=== PATIENT | female | born 1950 | race Caucasian/White ===

== ENCOUNTER → 2017-09-02 | Outpatient (CLI) | payer BC ==
--- NOTE | 2017-09-03 11:08 | MM ---
Reason for exam: screening (asymptomatic). Last mammogram was performed 1 year and 1 month ago. History: Patient is postmenopausal. Took hormonal contraceptives for 5 years. Physical Findings: A clinical breast exam by your physician is recommended on an annual basis and results should be correlated with mammographic findings. MG Screening Mammo w CAD Bilateral CC and MLO view(s) were taken. Prior study comparison: August 12, 2016, bilateral MG screening mammo w CAD. August 16, 2015, bilateral MG screening mammo w CAD. There are scattered fibroglandular densities. There is no discrete abnormality. No significant changes when compared with prior studies. ASSESSMENT: Negative, BI-RAD 1 RECOMMENDATION: Routine screening mammogram of both breasts in 1 year.
== END | disposition home or self-care (01) ==
LOC: RADMAMWWP 14:57
PROVIDERS: ATTEND Family Medicine
DX: Z12.31 Encounter for screening mammogram for malignant neoplasm of breast (principal)
CPT/HCPCS: 77067

== ENCOUNTER → 2017-11-24 | Outpatient (CLI) | payer BC | END | disposition home or self-care (01) | LOC: RADECHMAIN 11:54 | PROVIDERS: ATTEND Family Medicine | DX: R55 Syncope and collapse (principal) | CPT/HCPCS: 93270; 93271 ==

== ENCOUNTER → 2018-09-30 | Outpatient (CLI) | payer BC ==
--- NOTE | 2018-10-05 14:04 | MM ---
Reason for exam: screening (asymptomatic). Last mammogram was performed 1 year and 1 month ago. History: Patient is postmenopausal. Took hormonal contraceptives for 5 years. Physical Findings: A clinical breast exam by your physician is recommended on an annual basis and results should be correlated with mammographic findings. MG Screening Mammo w CAD Bilateral CC and MLO view(s) were taken. Prior study comparison: September 02, 2017, bilateral MG screening mammo w CAD. August 12, 2016, bilateral MG screening mammo w CAD. There are scattered fibroglandular densities. Benign vascular calcifications. No significant changes when compared with prior studies. ASSESSMENT: Negative, BI-RAD 1 RECOMMENDATION: Routine screening mammogram of both breasts in 1 year.
== END | disposition home or self-care (01) ==
LOC: RADMAMWWP 15:22
PROVIDERS: ATTEND Family Medicine
DX: Z12.31 Encounter for screening mammogram for malignant neoplasm of breast (principal)
CPT/HCPCS: 77067

== ENCOUNTER → 2019-10-04 | Outpatient (CLI) | payer BC ==
--- NOTE | 2019-10-05 09:15 | MM ---
Reason for exam: screening (asymptomatic). Last mammogram was performed 1 year ago. History: Patient is postmenopausal. Took hormonal contraceptives for 5 years. Physical Findings: A clinical breast exam by your physician is recommended on an annual basis and results should be correlated with mammographic findings. MG Screening Mammo w CAD Bilateral CC and MLO view(s) were taken. Prior study comparison: September 30, 2018, bilateral MG screening mammo w CAD. September 02, 2017, bilateral MG screening mammo w CAD. There are scattered fibroglandular densities. There is no discrete abnormality. No significant changes when compared with prior studies. ASSESSMENT: Negative, BI-RAD 1 RECOMMENDATION: Routine screening mammogram of both breasts in 1 year.
== END | disposition home or self-care (01) ==
LOC: RADMAMWWP 14:48
PROVIDERS: ATTEND Family Medicine
DX: Z12.31 Encounter for screening mammogram for malignant neoplasm of breast (principal)
CPT/HCPCS: 77067

== ENCOUNTER → 2020-10-05 | Outpatient (CLI) | payer BC, MEDICARE ==
--- NOTE | 2020-10-09 08:45 | MM ---
Reason for exam: screening (asymptomatic). Last mammogram was performed 1 year ago. History: Patient is postmenopausal. Took hormonal contraceptives for 5 years. Physical Findings: A clinical breast exam by your physician is recommended on an annual basis and results should be correlated with mammographic findings. MG Screening Mammo w CAD Bilateral CC and MLO view(s) were taken. Prior study comparison: October 04, 2019, bilateral MG screening mammo w CAD. September 30, 2018, bilateral MG screening mammo w CAD. There are scattered fibroglandular densities. No significant changes when compared with prior studies. ASSESSMENT: Benign, BI-RAD 2 RECOMMENDATION: Routine screening mammogram of both breasts in 1 year.
== END | disposition home or self-care (01) ==
LOC: RADMAMWWP 15:09
PROVIDERS: ATTEND Family Medicine
DX: Z12.31 Encounter for screening mammogram for malignant neoplasm of breast (principal); Z78.0 Asymptomatic menopausal state
CPT/HCPCS: 77067

== ENCOUNTER → 2021-07-24 | Outpatient (CLI) | payer BC | END | disposition home or self-care (01) | LOC: LABWHC1 14:54 | PROVIDERS: ATTEND Otolaryngology | DX: J30.89 Other allergic rhinitis (principal) | CPT/HCPCS: 36415; 86001 ==

== ENCOUNTER → 2021-11-01 | Outpatient (CLI) | payer BC ==
--- NOTE | 2021-11-02 14:55 | MM ---
Reason for Exam: Screening (asymptomatic). Last mammogram was performed 1 year(s) and 1 month(s) ago. Patient History: Menarche at age 11. First Full-Term at age 17. Postmenopausal. Patient used Hormonal Contraceptives for 5 years. Risk Values: Cynthia 5 year model risk: 1.3%. NCI Lifetime model risk: 3.3%. Prior Study Comparison: 09/30/2018 Bilateral Screening Mammogram, [facility]. 10/04/2019 Bilateral Screening Mammogram, [facility]. 10/05/2020 Bilateral Screening Mammogram, [facility]. Tissue Density: There are scattered fibroglandular densities. Findings: Analyzed By CAD. There is no suspicious group of microcalcifications or new suspicious mass in either breast. No significant change from prior examination. Overall Assessment: Negative, BI-RAD 1 Management: Screening Mammogram of both breasts in 1 year. A clinical breast exam by your physician is recommended on an annual basis and results should be correlated with mammographic findings. Electronically signed and approved by: Wesley Valenzuela D.O.
== END | disposition home or self-care (01) ==
LOC: RADMAMWWP 15:13
PROVIDERS: ATTEND Family Medicine
DX: Z12.31 Encounter for screening mammogram for malignant neoplasm of breast (principal); Z78.0 Asymptomatic menopausal state
CPT/HCPCS: 77067

== ENCOUNTER → 2022-01-29 | Outpatient (CLI) | payer BC ==
--- NOTE | 2022-01-29 10:48 | CT ---
CT left knee [facility] protocol HISTORY: Osteoarthritis, pain Helical acquisition through the left lower extremity for surgical planning purposes urine automated e xposure control for dose reduction, DLP 590 mGycentimeters. Sagittal and coronal reconstructions. No comparisons Left hip joint shows some mild hypertrophic change of the acetabulum. Marked osteoarthritic changes p resent within the knee, tricompartmental marginal spurring, loss of joint space, there is likely ther e is deformity, loose body. Ankle joint is intact. There is a plantar calcaneal spur present. Some sp urring present at the tibiotalar joint. Diverticular change noted incidentally within the colon. IMPRESSION: CT for procedure planning purposes.
== END | disposition home or self-care (01) ==
LOC: RADCTMAIN 09:01
PROVIDERS: ATTEND Orthopaedic Surgery
DX: M17.12 Unilateral primary osteoarthritis, left knee (principal); M21.162 Varus deformity, not elsewhere classified, left knee

== ENCOUNTER → 2022-02-18 | Outpatient (CLI) | payer BC ==
[2022-02-18 16:15] LABS: INR 1.2 (<1.2); Prothrombin Time 12.3 sec (9.0-12.0)
[2022-02-18 23:50] LABS: HCT 40.5 % (37.2-46.3); HGB 12.6 g/dL (12.0-15.0); MCH 30.4 pg (27.0-32.0); MCHC 31.1 g/dL (32.0-37.0); MCV 97.6 fL (80.0-97.0); Mean Platelet Volume 10.5 fL (9.5-12.2); NRBC Per 100 WBC 0 /100 WBCS (0.0-0.0); Platelet Count 169 X 10*3/uL (140-440); RBC 4.15 X 10*6/uL (4.10-5.20); RDW 12.9 % (11.5-14.5); WBC 7.97 X 10*3/uL (4.50-10.00)
[2022-02-19 00:25] LABS: African American GFR (CKD) 72.7 (60.0-200.0); Albumin 4.1 g/dL (3.8-4.9); Albumin/Globulin Ratio 1.2 (1.60-3.17); BUN/Creat Ratio 26.7 Ratio (12.00-20.00); Blood Urea Nitrogen 24.4 mg/dL (9.0-27.0); Calcium 9.5 mg/dL (8.7-10.3); Carbon Dioxide 25.2 mmol/L (20.0-27.5); Globulin 3.4 g/dL (1.6-3.3); Non-African American GFR(CKD) 62.7 (60.0-200.0); Potassium 4.3 mmol/L (3.5-5.5); Total Bilirubin 0.4 mg/dL (0.30-1.20); Total Protein 7.4 g/dL (6.2-8.2)
[2022-02-19 02:25] LABS: Appearance,Urine Clear (Clear); Bilirubin,Urine Negative (Negative); Blood,Urine Negative (Negative); Color,Urine Yellow (Yellow); Ketones,Urine Negative (Negative); Nitrite,Urine Negative (Negative); PH, Urine 5.5 (5.0-8.0); Specific Gravity,Urine 1.018 (1.001-1.030); Urobilinogen,Urine 0.2 (0.2,1.0)
== END | disposition home or self-care (01) ==
LOC: LABPAT 15:11
PROVIDERS: ATTEND Orthopaedic Surgery
DX: Z01.812 Encounter for preprocedural laboratory examination (principal)
CPT/HCPCS: 36415; 80053; 81003; 85027; 85610; 85730; 87070

== ENCOUNTER 2022-03-15 14:04 | Day surgery (SDC) | payer BC ==
[~2022-03-15 14:04] MED LIST: ACETAMINOPHEN TAB 500 MG TAB PO PRN; DEXAMETHASONE SOD PHOSPHATE 10 MG/ML 1 ML VIAL IV PRN; DOCUSATE 100 MG CAP PO PRN; FAMOTIDINE 20 MG/2 ML VIAL IVP PRN; HYDROmorphone 0.5 MG/0.5 ML SYRINGE IVP PRN; KETOROLAC 15 MG/ML 1 ML VIAL IVP PRN; MIDAZOLAM 2 MG/2 ML VIAL IV PRN; ONDANSETRON 4 MG/2 ML VIAL IVP PRN; ROPIVACAINE/EPI/CLONIDINE/KET 50 ML SYRINGE MISCELLANE PRN; TRANEXAMIC ACID IN NACL,ISO-OS 1,000 MG in SALINE 1 100ML.BAG IVPB PRN; oxyCODONE ER 10 MG TAB.ER.12H PO PRN
[2022-03-15] MEDS: LACTATED RINGERS 1,000 ML IV SCH ×2 (14:20→21:52)
[2022-03-15] MEDS ORDERED: MIDAZOLAM 2 MG/2 ML VIAL IVP ONE (14:49)
--- NOTE | 2022-03-15 15:46 | P.ANPRN ---
Procedure Note - Anesthesia - Nerve Block Performed Left Adductor Canal Single Time Out Performed: Yes Date of Procedure: 03/15/22 Procedure Start Time: 14:48 Procedure Stop Time: 14:56 Location of Patient: PreOp Indication: Acute Post-Operative Pain, Requested by Surgeon Sedation Type: Sedate with meaningful contact maintained Preparation: Sterile Prep, Sterile Dressing Position: Supine Catheter: None Needle Types: Facet Needle Gauge: 20 Ultrasound used to visualize needle placement: Yes Ultrasound used to observe medication spread: Yes Injectate: 0.5% Ropivacaine (see comment for volume) (15 ml + 2 mg decadron) Blood Aspirated: No Pain Paresthesia on Injection Noted: No Resistance on Injection: Normal Image Stored and Saved: Yes Events: Uneventful and Well Tolerated Left iPack Single Time Out Performed: Yes Date of Procedure: 03/15/22 Procedure Start Time: 14:57 Procedure Stop Time: 15:04 Location of Patient: PreOp Indication: Acute Post-Operative Pain, Requested by Surgeon Sedation Type: Sedate with meaningful contact maintained Preparation: Sterile Prep, Sterile Dressing Position: Right Lateral Catheter: None Needle Types: Facet Needle Gauge: 20 Ultrasound used to visualize needle placement: Yes Ultrasound used to observe medication spread: Yes Injectate: 0.5% Ropivacaine (see comment for volume) (15 ml + decadron 2 mg) Blood Aspirated: No Pain Paresthesia on Injection Noted: No Resistance on Injection: Normal Image Stored and Saved: Yes Events: Uneventful and Well Tolerated
[2022-03-15] MEDS ORDERED: PROPOFOL 10 MG/ML 20 ML VIAL IV ONE (16:30)
[2022-03-15] MEDS ORDERED: MIDAZOLAM 2 MG/2 ML VIAL ONE (16:30)
[2022-03-15] MEDS ORDERED: DEXAMETHASONE SOD PHOSPHATE 4 MG/ML 1 ML VIAL ONE (16:30)
[2022-03-15] MEDS ORDERED: ROPIVACAINE 5 MG/ML 30 ML VIAL ONE (16:30)
[2022-03-15] MEDS ORDERED: LIDOCAINE 2% INJ 20 MG/ML (2 ML VIAL) ONE (16:30)
[2022-03-15] MEDS ORDERED: NEOSTIGMINE 1 MG/ML 10 ML VIAL ONE (16:30)
[2022-03-15] MEDS ORDERED: GLYCOPYRROLATE 0.2 MG/ML 2 ML VIAL ONE (16:30)
[2022-03-15] MEDS ORDERED: fentaNYL (PF) 50 MCG/ML 2 ML AMP ONE (16:30)
[2022-03-15] MEDS ORDERED: ROCURONIUM 10 MG/ML (5 ML VIAL) IV ONE (16:30)
[2022-03-15] MEDS ORDERED: SUCCINYLCHOLINE CHLORIDE 200 MG/10 ML VIAL IV ONE (16:30)
[2022-03-15] MEDS ORDERED: LACTATED RINGERS 1,000 ML IV ONE (18:35)
[2022-03-15] MEDS ORDERED: VANCOMYCIN 1,000 MG VIAL MISCELLANE ONE (18:38)
[2022-03-15] MEDS ORDERED: NALOXONE 0.4 MG/ML 1 ML VIAL IV PRN (19:18)
[2022-03-15] MEDS ORDERED: hydrOXYzine pamoate 25 MG CAP PO PRN (19:20)
[2022-03-15] MEDS ORDERED: HYDROmorphone 0.5 MG/0.5 ML SYRINGE IVP PRN ×3 (19:20)
--- NOTE | 2022-03-15 19:23 | P.OP ---
Date of Procedure: 03/15/22 Preoperative Diagnosis: 1. Severe left knee osteoarthritis 2. BMI 37 3. Atrial fibrillation on Xarelto Postoperative Diagnosis: Same Procedure(s) Performed: Left total knee replacement Implants: 1. [employer] CR Femur Size #5 2. [place] [employer] [place] Tibial Base Size #4 with [id number] stem 3. [employer] CS poly Size #4, 10-mm 4. [place] [employer] all poly patella, Size #29 Anesthesia: CHARLY, regional Surgeon: Wing Dutton Electrician Station Assistant #1: Shea Payan Estimated Blood Loss (ml): 50 IV fluids (ml): 1,200 Pathology: none sent (Gross and/or histopathologic evaluation by pathology is not indicated based on my interpretation of preoperative imaging and intraoperative findings.) Condition: stable Disposition: PACU Indications for Procedure: I met with the patient preoperatively in the office setting and discussed treatment of their symptomatic knee arthritis. They failed a long course of nonsurgical treatment and elected to proceed with an elective total knee replacement. I discussed the potential risks and complications at length and gave them ample time to ask questions. Risks discussed included: risks from anesthesia, superficial site surgical infection, acute and/or chronic periprosthetic joint infection, delayed wound healing, drainage, wound necrosis, instability, stiffness, stiffness requiring manipulation and/or revision surgery, damage to local blood vessels or nerves, aseptic loosening of the implants, extensor mechanism issues including disruption, patellar maltracking, avascular necrosis etc., continued or worsened knee pain, generalized dissat isfaction with surgical outcome, need for revision surgery, an inability to regain preinjury level of function, DVT, PE, other medical complications, and possibly loss of life or limb. The patient voiced their understanding that while these are the most common complications other less common complications are possible. They provided both their verbal and written consent to go forward with surgery. Operative Findings: Severe tricompartmental osteoarthritis Description of Procedure: The patient was identified in preoperative holding and the correct operative extremity was verified and marked with a marker. I reviewed the consent form with the patient at length. All of their questions were answered. The patient was given a block by anesthesia. They were then brought back to the operating room. They were transferred onto the operating room table where a general anesthetic, preoperative antibiotics, and tranexamic acid were administered by anesthesia. A tourniquet was applied to the proximal aspect of the operative extremity. The contralateral extremity was padded under the heel and secured to the operating room table with a nonsterile blue towel and tape. The ipsilateral arm was carefully draped across the patient's chest and secured with a pillow and foam. A post was applied over the lateral aspect of the ipsilateral thigh and a bolster was placed under the ipsilateral foot. I verified that the operative extremity was stable and the knee was flexed to 90. The operative extremity was then placed in a leg lemus, nonsterile drapes were applied, and the extremity was prepped and draped sterilely in the standard sterile fashion. Prior to starting surgery timeout was performed identifying the correct patient, operative extremity, and procedure. The leg was then elevated, exsanguinated with an Esmarch bandage, and the tourniquet was inflated. An anterior midline incision was made sharply with a scalpel. Once I had dissected deep to the superficial fascial layer medial and lateral flaps were elevated. A medial parapatellar arthrotomy was created. Upon opening the knee joint there were diffuse arthritic changes in all 3 compartments. The anterior horn of the medial meniscus were sharply released and a medial release was performed around the posterior medial corner of the knee to facilitate retractor placement. The fat pad was excised with electrocautery. The patella was found to be severely arthritic and a provisional cut was made with a sagittal saw to facilitate mobilization of the extensor mechanism during the procedure. Remnants of the ACL and PCL were then excised from the notch. 4 mm pins were then placed within the incision in the medial distal femur and proximal tibia. Arrays were applied to the pins and I verified they were completely tightened. The knee was then registered with the Flexis robot and manipulations in implant position were made to balance the knee and opitmize implant position. Using the Flexis robotic saw all cuts were made in accordance with our plan. After all bony fragments had been removed the cuts were verified with the planar probe. The tibia was then subluxed forward and sized. The knee was brought into flexion and a lamina director software quality assurance was placed to allow removal of the meniscal remnants both medially and laterally as well as posterior osteophytes. Local anesthetic was then infiltrated around the joint capsule. Trial implants were then placed within the knee. Range of motion and collateral ligament tension was then evaluated. Adjustments in implant size and position were then made accordingly. Once the knee was felt to be appropriately balanced the Brodie pins were removed. The patella was then recut, sized, and punched. A trial patellar button was then placed. With the trial components in place, the patella tracked midline. The femur was then drilled and the trial component removed. The trial tibial component was then appropriately rotated, pinned, and prepared for the keel. All trial components were then removed from the knee. The knee was thoroughly irrigated with pulsatile lavage. Cement was prepared via vacuum mixing in a bowl on the back table. I then hand pressurized cement into the femur and tibia and placed the implants beginning with the tibial base tray and poly liner, femoral component, and finally the patellar button. All extruded cement was removed including from the pin sites. Once the cement had hardened the knee was evaluated one final time with the final polyethylene liner in place. The knee had full extension and flexion and felt stable to varus and valgus stress throughout the arc of motion. The tourniquet was released and with the tourniquet down the patella tracked midline. All bleeders were controlled with electrocautery. The knee was then soaked for 3 minutes with a dilute Betadine soak. The knee was thoroughly irrigated using 3 L of sterile saline and pulsatile lavage. A deep drain was placed. The extensor mechanism was then reapproximated using pop off Vicryl sutures followed by a running barbed suture. The knee was then closed in layers with a 0 strata fix for the deep fascial layer, 2-0 strata fix for the superficial subcutaneous layer and Monocryl and Steri-Strips for the skin. A sterile dressing and drain sponge were applied. I verified that all instrument, sponge, and sharp counts were correct. The patient was then transferred off the operating room table, extubated, and brought to recovery having tolerated the procedure well. Shea Payan PA-C was required as a skilled assistant laboratory director due to the complexity of the procedure for patient positioning, draping, retraction, placement of hardware, and closure of wound. PLAN: The patient can weight-bear as tolerated on the operative extremity. DVT prophylaxis with aspirin 81 mg twice a day based on preoperative risk stratification. Follow-up in the office in 2 weeks for wound check and x-rays of the knee including an AP and lateral.
--- NOTE | 2022-03-15 19:58 | XR ---
EXAMINATION TYPE: XR knee limited LT DATE OF EXAM: 03/15/2022 COMPARISON: NONE HISTORY: Postop knee pain TECHNIQUE: 2 view FINDINGS: There is left knee prosthesis. Components are in anatomic position. IMPRESSION: No complicating process seen
[2022-03-15] MEDS: HYDROcodone/APAP 5-325MG 1 EACH TAB PO PRN (21:53)
[2022-03-15] MEDS: SENNOSIDES-DOCUSATE SODIUM 1 EACH TAB PO SCH (21:54)
[2022-03-16] MEDS: HYDROcodone/APAP 5-325MG 1 EACH TAB PO PRN ×3 (05:30→22:05)
[2022-03-16] MEDS: LACTATED RINGERS 1,000 ML IV SCH ×3 (05:30→16:04)
[2022-03-16 06:10] LABS: Glucose,Whole Blood 126 mg/dL (70-110)
[2022-03-16] MEDS: SERTRALINE 50 MG TAB PO SCH (08:38)
[2022-03-16] MEDS: METOPROLOL SUCCINATE (ER) 25 MG TAB.ER.24H PO SCH (08:38)
[2022-03-16] MEDS: hydroCHLOROthiazide 12.5 MG CAP PO SCH (08:38)
[2022-03-16] MEDS: CHOLECALCIFEROL 25 MCG (1000 IU) TABLET PO SCH (08:39)
[2022-03-16] MEDS: lisinopriL 20 MG TAB PO SCH (08:39)
[2022-03-16] MEDS: ASCORBIC ACID 500 MG TAB PO SCH (08:39)
[2022-03-16] MEDS: IPRATROPIUM BROMIDE 0.06% NASAL SPRAY (15 ML) EA NOSTRIL SCH ×2 (08:40→20:57)
--- NOTE | 2022-03-16 09:57 | P.PN ---
Subjective Progress Note Date: 03/16/22 Overall the patient is doing well. She has significant improvement in her pain from preop, but we discussed this may be due to her block. She is artery been up with physical therapy. She denies chest pain or shortness of breath. Objective - Vital Signs Vital signs: Vital Signs Temp 97.4 F L 03/16/22 08:04 Pulse 61 03/16/22 08:31 Resp 17 03/16/22 08:31 BP 110/61 03/16/22 08:04 Pulse Ox 98 03/16/22 08:04 FiO2 Intake & Output 03/15/22 03/16/22 03/16/22 18:59 06:59 18:59 Intake Total 1150 200 Output Total 50 90 Balance 1100 200 -90 Weight 99.4 kg 99.4 kg Intake: IV 1150 200 Output: Drainage 90 Left Knee 90 Estimated Blood Loss 50 Other: Voiding Method Toilet Toilet # Voids 2 - Exam The patient is sitting up in a chair at bedside. She is alert and able to answer questions. A focused exam of the left lower extremity was conducted. On inspection she has a clean appearing dressing with no strikethrough. Her drain is in place and was removed. A new sponge was applied. Her thigh and calf are soft. Motor and sensory function are intact. - Labs Labs: Abnormal Lab Results - Last 24 Hours (Table) 03/16/22 Range/Units 06:09 POC Glucose (mg/dL) 126 H (70-110) mg/dL Assessment and Plan Assessment: Postoperative day #1 status post left total knee replacement, doing well Plan: 1. Weightbearing as tolerated left lower extremity, up with assistance, mobilize out of bed to chair 2. Drain pulled this morning, leave surgical dressing in place 3. Physical therapy for mobilization and gait training 4. Resume Xarelto today for both DVT prophylaxis and treatment for atrial fibrillation 5. Appreciate internal medicine assistance with perioperative medical management 6. Disposition: We will see how the patient does today with physical therapy and her pain control. We'll plan on keeping her overnight and discharging her home tomorrow morning. If she does well and would like to discharge home today she is 0K to leave
--- NOTE | 2022-03-16 09:58 | P.DS ---
Providers Date of admission: 03/15/2022 Attending physician: Wing Dutton Consults: 03/15/22 19:27 Consult Physician Routine Consulting Provider: Alcira Lew Consult Reason/Comments: medical management Do you want consulting provider notified?: Yes Primary care physician: Boris Nikolai [facility] Course: The patient is very pleasant previously healthy 71-year-old that has a long-standing history of problems with her left knee. She underwent an uncomplicated left total knee replacement. She was admitted under my care. Medical issues were managed by internal medicine. Her drain was pulled on postoperative day #1. She worked with physical therapy. She ultimately did well and was cleared for discharge home. Plan - Discharge Summary Discharge Rx Participant: Yes New Discharge Prescriptions: New Docusate [Colace] 100 mg PO BID #60 capsule HYDROcodone/APAP 5-325MG [[place] 5-325] 1 - 2 tab PO Q6HR PRN 7 Days #32 tab PRN Reason: Pain Omeprazole 40 mg PO DAILY 30 Days #30 cap No Action lisinopriL [Zestril] 20 mg PO DAILY Ipratropium Mitchell 0.06%Nasal [Atrovent Nasal 0.06%] 2 spray EA NOSTRIL BID Rivaroxaban [Xarelto] 20 mg PO HS hydroCHLOROthiazide [Hydrodiuril] 12.5 mg PO DAILY Sertraline [Zoloft] 50 mg PO DAILY Metoprolol Succinate (ER) [Toprol Xl] 25 mg PO DAILY Cholecalciferol [Vitamin D3 (25 Mcg = 1000 Iu)] 25 mcg PO DAILY Ascorbic Acid [Vitamin C] 500 mg PO DAILY Discharge Medication List lisinopriL [Zestril] 20 mg PO DAILY 03/12/22 [History] Ascorbic Acid [Vitamin C] 500 mg PO DAILY 03/13/22 [History] Cholecalciferol [Vitamin D3 (25 Mcg = 1000 Iu)] 25 mcg PO DAILY 03/13/22 [History] Ipratropium Mitchell 0.06%Nasal [Atrovent Nasal 0.06%] 2 spray EA NOSTRIL BID 03/13/22 [History] Metoprolol Succinate (ER) [Toprol Xl] 25 mg PO DAILY 03/13/22 [History] Rivaroxaban [Xarelto] 20 mg PO HS 03/13/22 [History] Sertraline [Zoloft] 50 mg PO DAILY 03/13/22 [History] hydroCHLOROthiazide [Hydrodiuril] 12.5 mg PO DAILY 03/13/22 [History] Docusate [Colace] 100 mg PO BID #60 capsule 03/15/22 [Rx] HYDROcodone/APAP 5-325MG [[place] 5-325] 1 - 2 tab PO Q6HR PRN 7 Days #32 tab 03/15/22 [Rx] Omeprazole 40 mg PO DAILY 30 Days #30 cap 03/15/22 [Rx] Follow up Appointment(s)/Referral(s): [facility], [NON-STAFF] - 1-2 Days Boris Menchaca DO [Primary Care Provider] - 1 Week (Office is closed please call for appointment) Wing Dutton MD [Medical Doctor] - 2 Weeks (Office is closed please call for an appointment) Activity/Diet/Wound Care/Special Instructions: Weight bear to tolerance on operative extremity with a walker. Keep operative dressing intact until follow-up appointment in the office. Call the office if dressing becomes saturated or falls off. May shower over dressing. Take pain medications as prescribed. Resume Xarelto for blood clot prevention. Take antibiotics as prescribed. Follow-up in the office in two weeks at [facility]. Call the office with any questions or concerns, Discharge Disposition: HOME WITH HOME HEALTH SERVICES
[2022-03-16 11:16] LABS: Basophils # (A) 0.01 X 10*3/uL (0.00-0.10); Basophils % (A) 0.1 %; Eosinophils # (A) 0 X 10*3/uL (0.04-0.35); Eosinophils % (A) 0 %; HCT 36.7 % (37.2-46.3); HGB 11.7 g/dL (12.0-15.0); Immature Grans, Automated 0.5 %; Lymphocytes # (A) 1.22 X 10*3/uL (0.90-5.00); Lymphocytes % (A) 11.1 %; MCHC 31.9 g/dL (32.0-37.0); MCV 97.1 fL (80.0-97.0); Mean Platelet Volume 10.5 fL (9.5-12.2); Monocytes # (A) 0.73 X 10*3/uL (0.20-1.00); Monocytes % (A) 6.6 %; NRBC Per 100 WBC 0 /100 WBCS (0.0-0.0); Neutrophils # (A) 8.99 X 10*3/uL (1.80-7.70); Neutrophils % (A) 81.7 %; Platelet Count 151 X 10*3/uL (140-440); RBC 3.78 X 10*6/uL (4.10-5.20); RDW 13.2 % (11.5-14.5)
--- NOTE | 2022-03-16 19:31 | CONS ---
CONSULTATION REASON FOR CONSULTATION: Advice regarding atrial fibrillation and other medical issues, requested by Orthopedic Surgery. HISTORY OF PRESENT ILLNESS: This 71-year-old woman with a past medical history of atrial fibrillation, hypertension, and other medical issues, underwent left total knee arthroplasty. There is no history of any fever or rigors. No history of any headache, loss of consciousness, chest pain, or palpitations at this time. PAST MEDICAL HISTORY: Atrial fibrillation, hypertension. The rest of the history and rest of the chart is reviewed. HOME MEDICATIONS: Reviewed and include Zestril. Dose and rest of medications reviewed. ALLERGIES: None. FAMILY HISTORY: No history of heart disease or strokes in the family. SOCIAL HISTORY: No history of smoking or alcohol. REVIEW OF SYSTEMS: A 14-point review of systems is negative as mentioned earlier. PHYSICAL EXAMINATION: VITAL SIGNS: Pulse is 61, blood pressure 110/61, respirations 17. HEENT: Conjunctivae normal. NECK: No JVD. CARDIOVASCULAR: S1, S2. RESPIRATION: Breath sounds diminished at the bases. ABDOMEN: Soft. LEGS: Status post left knee arthroplasty. SKIN: No ulcer, rash, or bleeding. JOINTS: No active deforming arthropathy. LABORATORY DATA: WBC 11. The rest of the labs are noted. ASSESSMENT: 1. Status post left total knee arthroplasty. 2. History of atrial fibrillation. 3. Hypertension. 4. Degenerative joint disease. 5. Multiple medical issues. RECOMMENDATIONS: I recommend to continue current medications, continue symptomatic treatment. Otherwise, resume the home medications including Xarelto when okay with Orthopedic Surgery. Otherwise, DVT prophylaxis. Further recommendations to follow. MMODL / IJN: [id number] /
[2022-03-16] MEDS: SENNOSIDES-DOCUSATE SODIUM 1 EACH TAB PO SCH (20:55)
[2022-03-16] MEDS ORDERED: RIVAROXABAN 20 MG TAB PO SCH (21:00)
[2022-03-17] MEDS: HYDROcodone/APAP 5-325MG 1 EACH TAB PO PRN ×2 (03:12→09:03)
[2022-03-17] MEDS: LACTATED RINGERS 1,000 ML IV SCH ×2 (04:52→05:40)
[2022-03-17] MEDS: SERTRALINE 50 MG TAB PO SCH (07:46)
[2022-03-17] MEDS: METOPROLOL SUCCINATE (ER) 25 MG TAB.ER.24H PO SCH (07:47)
[2022-03-17] MEDS: IPRATROPIUM BROMIDE 0.06% NASAL SPRAY (15 ML) EA NOSTRIL SCH (07:47)
[2022-03-17] MEDS: lisinopriL 20 MG TAB PO SCH (07:47)
[2022-03-17] MEDS: ASCORBIC ACID 500 MG TAB PO SCH (07:47)
[2022-03-17] MEDS: CHOLECALCIFEROL 25 MCG (1000 IU) TABLET PO SCH (07:47)
[2022-03-17] MEDS: hydroCHLOROthiazide 12.5 MG CAP PO SCH (07:47)
[2022-03-17 08:12] VITALS: BP 93/59; PULSE 60; RESP 17; TEMP 97.8
--- NOTE | 2022-03-17 09:10 | P.PN ---
Progress Note - Text Progress Note Date: 03/17/22 Today is post-operative day #2. She is status-post left total knee arthroplasty on 03/15/22. The patient is examined bedside with Dr. Dutton. Patient's pain is well-controlled. She is ambulating with a walker with minimal assistance. She is comfortable discharging home today. On examination, patient is sitting up in bed in no apparent distress. She is alert and answer questions appropriately. On inspection of the left knee, dressing is clean, dry, intact. Motor and sensory function intact. LLE warm and well perfused. Calf-nontender. Patient is going to discharge home today, pending medical clearance. She will follow-up at [facility] in two weeks.
--- NOTE | 2022-03-17 13:17 | P.PN ---
Subjective Progress Note Date: 03/17/22 03/17/2022 This is a 71 year old female who was admitted under orthopedic services and is status post Left knee arthroplasty. Patient is up and working with physical therapy and pain is being managed on current regimen. Patient is on dvt prophylaxis in the form of xarelto and will continue. Patient reports she is being discharged home today. Patient is afebrile and denies chest pain or shortness of breath. Encouraged increased activity as tolerated. Encouraged incentive spirometer use at least 10 times per hour while awake. Home medications reviewed and resumed. Recommend monitoring blood pressure and hold meds if systolic is 90 or less. Review of systems: Constitutional: No reports of fatigue, fever, or chills Cardiovascular: No reports of chest pain or palpitations Respiratory: No reports of shortness of breath or cough GI: no reports of nausea, no vomiting, reports passing gas : No reports of dysuria or retention Neurovascular: no reports of generalized weakness All medications have been reviewed PHYSICAL EXAMINATION: GENERAL: The patient is alert and oriented x4, Well developed, well nourished. obese HEENT: Pupils are round and equally reacting to light. EOMI. no scleral icterus. No conjunctival pallor. Normocephalic, atraumatic. No pharyngeal erythema. No thyromegaly. CARDIOVASCULAR: S1 and S2 muffled PULMONARY: diminished breath sounds bilaterally with no wheezing or rhonchi noted. ABDOMEN: soft. non- tender. non-distended, normoactive bowel sounds. No palpable organomegaly. MUSCULOSKELETAL: No joint swelling or deformity. EXTREMITIES: No cyanosis, clubbing, or pedal edema. left knee surgical site is dry and intact NEUROLOGICAL: Gross neurological examination did not reveal any focal deficits. SKIN: No rashes. Assessment: Status post left total knee arthroplasty HIstory of atrial fibrillation hypertension Degenerative joint disease History of anxiety and depression GI prophylaxis DVT prophylaxis Full code Plan: Recommend to continue with current medications and management per orthopedic services. Patient is post op left knee arthroplasty. Patient has been up and working with physical therapy and is planning for discharge today. Patient with incentive spirometer at the bedside and encouraged to continue using at least 10 times per hour while awake. Patient home medications resumed and blood pressures are in the 90's systolic and recommend to monitor blood pressure closely and hold meds if systolic is 90 or less. Follow up with pcp on discharge. We will continue to follow with ortho while hospitalized. Thank you for this co nsultation. . The impression and plan of care has been dictated as a scribe by Abbi Weiss, nurse practitioner as directed. Dr. Vipin MD I have performed a history and examination and MDM of this patient, discussed the same with the dictator, and will be documented as a scribe. Based on total visit time, I have performed more than 50% of the visit. Any additional findings or plans will be noted. Objective - Vital Signs Vital signs: Vital Signs Temp 97.8 F 03/17/22 08:00 Pulse 60 03/17/22 08:00 Resp 17 03/17/22 08:00 BP 93/59 03/17/22 08:00 Pulse Ox 100 03/17/22 08:00 FiO2 Intake & Output 03/16/22 03/17/22 03/17/22 18:59 06:59 18:59 Intake Total 236 Output Total 90 Balance 146 Intake: Oral 236 Output: Drainage 90 Left Knee 90 Other: Voiding Method Toilet Toilet Toilet # Voids 3 3 - Labs CBC & Chem 7: 03/16/22 06:46 Labs: Abnormal Lab Results - Last 24 Hours (Table) 03/16/22 Range/Units 06:46 WBC 11.00 H (4.50-10.00) X 10*3/uL RBC 3.78 L (4.10-5.20) X 10*6/uL Hgb 11.7 L (12.0-15.0) g/dL Hct 36.7 L (37.2-46.3) % MCV 97.1 H (80.0-97.0) fL MCHC 31.9 L (32.0-37.0) g/dL Immature Gran # 0.05 H (0.00-0.04) X 10*3/uL Neutrophils # 8.99 H (1.80-7.70) X 10*3/uL Eosinophils # 0 L (0.04-0.35) X 10*3/uL
== END 2022-03-17 11:17 | disposition home health service (06) ==
LOC: OR 14:04 → 4SSUR 20:04 → OR 03-17 11:17
PROVIDERS: ATTEND Orthopaedic Surgery
DX: M17.12 Unilateral primary osteoarthritis, left knee (principal); I10 Essential (primary) hypertension; I48.91 Unspecified atrial fibrillation; Z71.82 Exercise counseling; Z68.37 Body mass index [BMI] 37.0-37.9, adult; Z79.01 Long term (current) use of anticoagulants; Z96.652 Presence of left artificial knee joint
CPT/HCPCS: 94760; 97161; 85025; 73560; 27447; J2250; J3370; J1100; J0690 ×2; J2405; J1885; 64447; 64999; 76942

== ENCOUNTER → 2022-12-12 | Outpatient (CLI) | payer MEDICARE ==
--- NOTE | 2022-12-13 07:50 | MM ---
Reason for Exam: Screening (asymptomatic). Last mammogram was performed 1 year(s) and 1 month(s) ago. Patient History: Menarche at age 11. First Full-Term at age 17. Postmenopausal. Patient used Hormonal Contraceptives for 5 years. Risk Values: Cynthia 5 year model risk: 1.3%. NCI Lifetime model risk: 3.1%. Prior Study Comparison: 10/04/2019 Bilateral Screening Mammogram, [facility]. 10/05/2020 Bilateral Screening Mammogram, [facility]. 11/01/2021 Bilateral MG screening mammo w CAD, [facility]. Tissue Density: There are scattered fibroglandular densities. Findings: Analyzed By CAD. There is no suspicious group of microcalcifications or new suspicious mass in either breast. Bilateral vascular calcifications. Overall Assessment: Benign, BI-RAD 2 Management: Screening Mammogram of both breasts in 1 year. A clinical breast exam by your physician is recommended on an annual basis and results should be correlated with mammographic findings. Note on Cynthia scores and lifetime risk: 1. A Cynthia score greater than 3% is considered moderate risk. If this is the case, consider specialist referral to assess eligibility for a risk reducing agent. If overall lifetime risk for the development of breast cancer is 20% or higher, the patient may qualify for future screening with alternating mammogram and breast MRI. Electronically signed and approved by: Wesley Valenzuela D.O.
== END | disposition home or self-care (01) ==
LOC: RADMAMWWP 13:13
PROVIDERS: ATTEND Family Medicine
DX: Z12.31 Encounter for screening mammogram for malignant neoplasm of breast (principal); Z78.0 Asymptomatic menopausal state
CPT/HCPCS: 77067

== ENCOUNTER 2023-11-28 09:45 | Day surgery (SDC) | payer MEDICARE, BC ==
[2023-11-28] MEDS ORDERED: LIDOCAINE 1% INJ 10MG/ML (20 ML MDV) ONE (14:21)
[2023-11-28] MEDS ORDERED: PROPOFOL 10 MG/ML 20 ML VIAL IV ONE (14:21)
--- NOTE | 2023-12-05 15:55 | OP ---
OPERATIVE REPORT DATE OF SERVICE : 11/28/2023 BRIEF HISTORY: The patient is a 73-year-old pleasant white female scheduled for an elective colonoscopy as a part of screening for colorectal neoplasia. PROCEDURE PERFORMED: Colonoscopy. PREOPERATIVE DIAGNOSIS: Screening for colon cancer. ANESTHESIA: IV sedation per Anesthesia. DESCRIPTION OF PROCEDURE: After informed consent was obtained from the patient, she was brought into the endoscopy unit. IV conscious sedation was administered by Anesthesia on continuous monitoring. Initial digital rectal examination was normal. The Olympus CF-190 video colonoscope was then inserted into the rectum and gradually advanced into the cecum. Careful examination was performed as the scope was gradually being withdrawn. The ileocecal valve in the appendiceal orifice was visualized and appeared normal. The prep was excellent. Mucosa of the cecum, ascending colon, transverse colon, descending colon, sigmoid colon, and rectum appeared normal. There were moderate sigmoid diverticulosis seen. In the rectum, retroflexion was performed, no lesions noted. The patient tolerated the procedure well. IMPRESSION: 1. Moderate sigmoid diverticulosis. 2. No evidence of colorectal neoplasia. RECOMMENDATIONS: Findings of this examination were discussed with the patient as well as the family, she was advised to be a high-fiber diet, take fiber supplements on a regular basis, and recommend repeat colonoscopy in 10 years. MMODL / IJN: [id number] /
== END 2023-11-28 15:20 ==
LOC: ORWHC2ENDO 09:45
PROVIDERS: ATTEND Internal Medicine Gastroenterology
DX: Z12.11 Encounter for screening for malignant neoplasm of colon (principal); K57.30 Diverticulosis of large intestine without perforation or abscess without bleeding; I10 Essential (primary) hypertension; I48.91 Unspecified atrial fibrillation; Z79.899 Other long term (current) drug therapy
CPT/HCPCS: 45378

== ENCOUNTER → 2023-12-16 | Outpatient (CLI) | payer MEDICARE ==
--- NOTE | 2023-12-21 11:59 | MM ---
Reason for Exam: Screening (asymptomatic). Last mammogram was performed 1 year(s) and 1 month(s) ago. Patient History: Menarche at age 11. First Full-Term at age 17. Postmenopausal. Patient used Hormonal Contraceptives for 5 years. Risk Values: Cynthia 5 year model risk: 1.3%. NCI Lifetime model risk: 3.0%. Prior Study Comparison: 10/05/2020 Bilateral Screening Mammogram, [facility]. 11/01/2021 Bilateral MG screening mammo w CAD, [facility]. 12/12/2022 Bilateral MG screening mammo w CAD, [facility]. Tissue Density: The breasts are almost entirely fatty. Findings: Analyzed By CAD. Right breast: There is no suspicious group of microcalcifications or new suspicious mass. Left breast: There is no suspicious group of microcalcifications or new suspicious mass. Overall Assessment: Negative, BI-RAD 1 Management: Screening Mammogram of both breasts in [address] [facility] will attempt to contact patient to return for supplemental views and ultrasound if indicated. Patient should continue monthly self-breast exams. A clinical breast exam by your physician is recommended on an annual basis. This exam should not preclude additional follow-up of suspicious palpable abnormalities. Note on Cynthia scores and lifetime risk: 1. A Cynthia score greater than 3% is considered moderate risk. If this is the case, consider specialist referral to assess eligibility for a risk reducing agent. 2. If overall lifetime risk for the development of breast cancer is 20% or higher, the patient may qualify for future screening with alternating mammogram and breast MRI. Electronically signed and approved by: Juan Jose Levine DO
== END | disposition home or self-care (01) ==
LOC: RADMAMWWP 10:25
PROVIDERS: ATTEND Family Medicine
DX: Z12.31 Encounter for screening mammogram for malignant neoplasm of breast
CPT/HCPCS: 77063; 77067

== ENCOUNTER 2024-01-04 21:34 | Inpatient (IN) | payer MEDICARE, BC ==
--- NOTE | 2024-01-04 22:05 | ED ---
Fall HPI - General Chief Complaint: Fall Stated Complaint: Fall - On thinners Time Seen by Provider: 01/04/24 21:46 Source: patient Mode of arrival: EMS - History of Present Illness Initial Comments: Patient is a 73-year-old female presenting today for a fall. States she was at home and felt like her right leg became weak causing her to fall. She states she fell towards her side and then onto her back on hardwood floor. She denies loss of consciousness and hitting her head however her told her she did hit her head against the door. She currently denies any neck pain, back pain, numbness or weakness in her extremities, chest pain, shortness of breath or difficulty in breathing, nausea, vomiting, diarrhea, dysuria, urinary frequency. Of note per EMS report on their assessment patient's temperature was 101.6 degrees. On arrival here it is 100.2. She took no antipyretics prior to arrival. She states she has had subjective fevers and chills for the last week. Additionally states she has had a cough for the last 3 weeks that her doctor thought was secondary to lisinopril so I changed her medications however her cough is persistent. Cough is nonproductive and there is no hemoptysis. Endorses right sided rib/right sided abdominal pain which she suspects is from coughing. - Related Data Home Medications Medication Instructions Recorded Confirmed Metoprolol Succinate (ER) [Toprol 25 mg PO DAILY 03/13/22 01/05/24 XL] hydroCHLOROthiazide [Hydrodiuril] 12.5 mg PO DAILY 03/13/22 01/05/24 Irbesartan 150 mg PO DAILY 01/05/24 01/05/24 Loratadine [Claritin] 10 mg PO DAILY 01/05/24 01/05/24 Previous Rx's Medication Instructions Recorded Acetaminophen Tab [Tylenol] 1,000 mg PO Q6HR PRN #30 tablet 01/09/24 Ciprofloxacin HCl [Cipro] 500 mg PO BID 10 Days #20 tab 01/09/24 Dabigatran Etexilate Mesylate 150 mg PO BID #0 01/09/24 [Dabigatran Etexilate] metroNIDAZOLE [Flagyl] 500 mg PO TID #30 tab 01/09/24 Allergies Allergy/AdvReac Type Severity Reaction Status Date / Time lisinopril AdvReac Cough Verified 01/05/24 10:38 Review of Systems ROS Statement: Those systems with pertinent positive or pertinent negative responses have been documented in the HPI. ROS Other: All systems not noted in ROS Statement are negative. Constitutional: Reports: fever, chills, weakness ENT: Denies: throat pain, congestion Respiratory: Reports: cough. Denies: dyspnea, hemoptysis Cardiovascular: Denies: chest pain, syncope Gastrointestinal: Reports: abdominal pain. Denies: nausea, vomiting, diarrhea Genitourinary: Denies: dysuria, frequency Musculoskeletal: Denies: back pain Neurological: Denies: headache, numbness, paresthesias, vertigo Past Medical History Past Medical History: Atrial Fibrillation, Hypertension, Osteoarthritis (OA), Vascular Disorder Additional Past Medical History / Comment(s): ankle swelling, environmental allergies-gets allergy shots, vericose veins History of Any Multi-Drug Resistant Organisms: None Reported Additional Past Surgical History / Comment(s): colonoscopy, TLK, LTK Past Psychological History: No Psychological Hx Reported Smoking Status: Never smoker Past Alcohol Use History: None Reported Past Drug Use History: None Reported General Exam - General Exam Comments Initial Comments: PE: CONSTITUTIONAL: No apparent distress, well appearing SKIN: Warm, dry, no jaundice, hives or petechiae EYES: Pupils are equally round, extraocular movements intact without nystagmus, clear conjunctiva, non-icteric sclera HENT: Normocephalic, atraumatic, moist mucus membranes, oropharynx clear without exudates NECK: , C-collar in place, no midline spinal tenderness to palpation PULMONARY: Clear to auscultation without wheezes, rhonchi, or rales, normal excursion, no accessory muscle use and no stridor CARDIOVASCULAR: Regular rate, rhythm, normal S1 and S2. No appreciated murmurs, rubs or gallops. Strong radial pulses with intact distal perfusion. No lower extremity edema GASTROINTESTINAL: Soft, right-sided abdominal tenderness to palpation, no right upper quadrant tenderness, non-distended, no palpable masses, no rebound or guarding. No hepatosplenomegaly MUSCULOSKELETAL: Extremities have no gross deformity, no edema, redness, or swelling. No midline spinal tenderness to palpation NEUROLOGIC:_a/o x 3, GCS 15, normal mentation and speech. Moves all extremities x 4 without motor or sensory deficit PSYCHIATRIC:_normal mood and affect, thought process is clear and linear Limitations: no limitations Course Vital Signs 01/04/24 01/04/24 01/04/24 21:38 22:15 23:24 Temperature 100.2 F H 103.3 F H Pulse Rate 98 90 Respiratory 17 17 Rate Blood Pressure 108/95 103/41 O2 Sat by Pulse 97 95 Oximetry 01/05/24 02:50 Temperature 98.4 F Pulse Rate 61 Respiratory 17 Rate Blood Pressure 109/66 O2 Sat by Pulse 97 Oximetry Medical Decision Making - Medical Decision Making Was pt. sent in by a medical professional or institution (, PA, RETIREMENT SALES CONSULTANT, urgent care, hospital, or detention...) When possible be specific @ -No Did you speak to anyone other than the patient for history (EMS, parent, family, police, friend...)? What history was obtained from this source @ -No Did you review nursing and triage notes (agree or disagree)? Why? @ -I reviewed and agree with nursing and triage notes Were old charts reviewed (outside hosp., previous admission, EMS record, old EKG, old radiological studies, urgent care reports/EKG's, detention records)? Report findings @ -Reviewed op report from colonoscopy performed on 11/30/2019 Differential Diagnosis (chest pain, altered mental status, abdominal pain women, abdominal pain men, vaginal bleeding, weakness, fever, dyspnea, syncope, headache, dizziness, GI bleed, back pain, seizure, CVA, palpatations, mental health, musculoskeletal)? @Differential Weakness: Hypoglycemia, sepsis, hyponatremia, anemia, infection, ACS adverse medicine reaction, this is not meant to be an all-inclusive list. EKG interpreted by me (3pts min.). @Atrial fibrillation with RVR, rate 121 bpm, QRS duration 79 ms, QT/QTc 310/382 ms, normal axis, PVC present, no ST elevations or depressions, no prior available for comparison X-rays interpreted by me (1pt min.). @No acute cardiopulmonary process, no pneumothorax or consolidations CT interpreted by me (1pt min.). @ -No evidence of hemorrhage on CT brain, no evidence of fracture or malalig nment on CT C-spine U/S interpreted by me (1pt. min.). @Dilated CBD noted What testing was considered but not performed or refused? (CT, X-rays, U/S, labs)? Why? @ -Considered CT abdomen pelvis abdomen pelvis however consider transition to ultrasound as noted below What meds were considered but not given or refused? Why? @ -None Did you discuss the management of the patient with other professionals (professionals i.e. , PA, RETIREMENT SALES CONSULTANT, lab, RT, psych nurse, manager social responsibility, rn digestive, teacher, photographic intelligence officer, manager case)? Give summary @ -Case discussed with Dr. Wilkes, requests admission to medicine, she will be on consult Was smoking cessation discussed for >3mins.? @ -No Was critical care preformed (if so, how long)? @ yes, 35 minutes Were there social determinants of health that impacted care today? How? (Homelessness, low income, unemployed, alcoholism, drug addiction, transportation, low edu. Level, literacy, decrease access to med. care, senior living, rehab)? @ -No Was there de-escalation of care discussed even if they declined (Discuss DNR or withdrawal of care, Hospice)? @ -No What co-morbidities impacted this encounter? (DM, HTN, Smoking, COPD, CAD, Cancer, CVA, ARF, Chemo, Hep., AIDS, mental health diagnosis, sleep apnea, morbid obesity)? @ -None Was patient admitted / discharged? Hospital course, mention meds given and route, prescriptions, significant lab abnormalities, going to OR and other pertinent info. @ -Hospital course admission- patient is a pleasant 73 y/o female history of atrial fibrillation not on blood thinners presenting today for a fall at home secondary to weakness. Patient incidentally found to have a fever 101.6 degrees by EMS and 100.2 degrees oral here. Rectal temp was 103.3. Patient does note subjective fevers and chills for the last week and a nonproductive cough for the last 3 weeks. She currently denies headache, neck pain, did not lose consciousness, no back pain, chest pain, shortness of breath, pain or weakness in her extremities does note right sided abdominal pain that she thinks was present prior to her fall and suspects is from all the coughing she has been doing. Plan for CT brain and C-spine secondary to patient's age and possible head injury, x-ray chest due to persistent cough and fever, CT abdomen pelvis secondary to fall and fever and right-sided abdominal pain, UA, comprehensive labs IV fluids, Tylenol. Patient is agreeable with plan of care. Of note patient's EKG did show A-fib with RVR however I suspect this is secondary to her fever, so we will give fever control prior to treating RVR with antiarrhythmics. CT brain and C-spine negative for acute process or fracture. Chest x-ray shows no signs of pneumonia. Patient's labs resulted, no leukocytosis or anemia however elevated LFTs and alk phos as well as magnesium 1.5. CT abdomen pelvis was switched to an ultrasound of the right upper quadrant due to elevated LFTs and pain localized to the right upper quadrant. On my reassessment patient states pain is 5 out of 10 so we will add morphine and Zofran due to patient having associated nausea. Updated patient to plan of care and results thus far. Additionally heart rate has improved to high 90s and low 100s after administration of Tylenol. Ultrasound of the gallbladder was reviewed, impression was read as "suboptimal study but sonographic findings concerning for acute cholecystitis advised surgical evaluation" gallbladder wall 0.6 cm common bile duct 0.8 cm large gallstone seen with internal debris's and wall thickening sonographic Johns sign positive. Dr. Wilkes, general surgery consulted, kindly recommends admission and surgical consultation placed. Patient started on cefepime and Flagyl, pain control. Updated patient to findings and plan for admission. She is agreeable plan of care. Discussed case with Dr. Lozano, kindly accepts patient for admission. Patient admitted in stable condition. Undiagnosed new problem with uncertain prognosis? @ -No Drug Therapy requiring intensive monitoring for toxicity (Heparin, Nitro, Insulin, Cardizem)? @ -No Were any procedures done? @ -No Diagnosis/symptom? @ -Generalized weakness, acute cholecystitis Acute, or Chronic, or Acute on Chronic? @ -Acute Uncomplicated (without systemic symptoms) or Complicated (systemic symptoms)? @Complicated Side effects of treatment? @ -No Exacerbation, Progression, or Severe Exacerbation? @ -No Poses a threat to life or bodily function? How? (Chest pain, USA, SC, pneumonia, PE, COPD, DKA, ARF, appy, cholecystitis, CVA, Diverticulitis, Homicidal, Suicidal, threat to staff... and all critical care pts) @Yes, if allowed to continue untreated could progress to sepsis and septic shock - Lab Data Result diagrams: 01/09/24 05:57 01/09/24 05:57 Lab Results 01/04/24 01/04/24 01/04/24 Range/Units 22:11 22:11 22:11 WBC 9.9 (3.8-10.6) k/uL RBC 4.10 (3.80-5.40) m/uL Hgb 12.8 (11.4-16.0) gm/dL Hct 38.2 (34.0-46.0) % MCV 93.0 (80.0-100.0) fL MCH 31.2 (25.0-35.0) pg MCHC 33.5 (31.0-37.0) g/dL RDW 13.3 (11.5-15.5) % Plt Count 202 (150-450) k/uL MPV 8.6 Neutrophils % 70 % Lymphocytes % 16 % Monocytes % 11 % Eosinophils % 0 % Basophils % 1 % Neutrophils # 6.9 (1.3-7.7) k/uL Lymphocytes # 1.6 (1.0-4.8) k/uL Monocytes # 1.0 (0-1.0) k/uL Eosinophils # 0.0 (0-0.7) k/uL Basophils # 0.1 (0-0.2) k/uL PT 13.0 H (10.0-12.5) sec INR 1.2 H (<1.2) APTT 27.8 (22.0-30.0) sec Sodium 134 L (137-145) mmol/L Potassium 4.0 (3.5-5.1) mmol/L Chloride 99 (98-107) mmol/L Carbon Dioxide 28 (22-30) mmol/L Anion Gap 7 mmol/L BUN 19 H (7-17) mg/dL Creatinine 0.78 (0.52-1.04) mg/dL Est GFR (CKD-EPI)AfAm 87 (>60 ml/min/1.73 sqM) Est GFR (CKD-EPI)NonAf 75 (>60 ml/min/1.73 sqM) Glucose 118 H (74-99) mg/dL Plasma Lactic Acid Nando (0.7-2.0) mmol/L Calcium 8.7 (8.4-10.2) mg/dL Magnesium 1.5 L (1.6-2.3) mg/dL Total Bilirubin 1.2 (0.2-1.3) mg/dL AST 168 H (14-36) U/L ALT 63 H (4-34) U/L Alkaline Phosphatase 178 H (38-126) U/L Troponin I (0.000-0.034) ng/mL NT-Pro-B Natriuret Pep 2460 pg/mL Total Protein 7.5 (6.3-8.2) g/dL Albumin 3.8 (3.5-5.0) g/dL TSH 2.150 (0.465-4.680) mIU/L Urine Color Urine Appearance (Clear) Urine pH (5.0-8.0) Ur Specific Franklin (1.001-1.035) Urine Protein (Negative) Urine Glucose (UA) (Negative) Urine Ketones (Negative) Urine Blood (Negative) Urine Nitrite (Negative) Urine Bilirubin (Negative) Urine Urobilinogen (<2.0) mg/dL Ur Leukocyte Esterase (Negative) Urine RBC (0-5) /hpf Urine WBC (0-5) /hpf Ur Squamous Epith Cells (0-4) /hpf Urine Bacteria (None) /hpf Hyaline Casts (0-2) /lpf Urine Mucus (None) /hpf Urine Yeast (Budding) (None) /hpf Influenza Type A (PCR) (Not Detectd) Influenza Type B (PCR) (Not Detectd) RSV (PCR) (Not Detectd) SARS-CoV-2 (PCR) (Not Detectd) 01/04/24 01/04/24 01/04/24 Range/Units 22:11 22:11 23:35 WBC (3.8-10.6) k/uL RBC (3.80-5.40) m/uL Hgb (11.4-16.0) gm/dL Hct (34.0-46.0) % MCV (80.0-100.0) fL MCH (25.0-35.0) pg MCHC (31.0-37.0) g/dL RDW (11.5-15.5) % Plt Count (150-450) k/uL MPV Neutrophils % % Lymphocytes % % Monocytes % % Eosinophils % % Basophils % % Neutrophils # (1.3-7.7) k/uL Lymphocytes # (1.0-4.8) k/uL Monocytes # (0-1.0) k/uL Eosinophils # (0-0.7) k/uL Basophils # (0-0.2) k/uL PT (10.0-12.5) sec INR (<1.2) APTT (22.0-30.0) sec Sodium (137-145) mmol/L Potassium (3.5-5.1) mmol/L Chloride (98-107) mmol/L Carbon Dioxide (22-30) mmol/L Anion Gap mmol/L BUN (7-17) mg/dL Creatinine (0.52-1.04) mg/dL Est GFR (CKD-EPI)AfAm (>60 ml/min/1.73 sqM) Est GFR (CKD-EPI)NonAf (>60 ml/min/1.73 sqM) Glucose (74-99) mg/dL Plasma Lactic Acid Nadno (0.7-2.0) mmol/L Calcium (8.4-10.2) mg/dL Magnesium (1.6-2.3) mg/dL Total Bilirubin (0.2-1.3) mg/dL AST (14-36) U/L ALT (4-34) U/L Alkaline Phosphatase (38-126) U/L Troponin I <0.012 (0.000-0.034) ng/mL NT-Pro-B Natriuret Pep pg/mL Total Protein (6.3-8.2) g/dL Albumin (3.5-5.0) g/dL TSH (0.465-4.680) mIU/L Urine Color Yellow Urine Appearance Cloudy H (Clear) Urine pH 5.5 (5.0-8.0) Ur Specific Franklin 1.029 (1.001-1.035) Urine Protein 1+ H (Negative) Urine Glucose (UA) Negative (Negative) Urine Ketones 1+ H (Negative) Urine Blood Small H (Negative) Urine Nitrite Negative (Negative) Urine Bilirubin Negative (Negative) Urine Urobilinogen 4.0 (<2.0) mg/dL Ur Leukocyte Esterase Negative (Negative) Urine RBC 4 (0-5) /hpf Urine WBC 2 (0-5) /hpf Ur Squamous Epith Cells 1 (0-4) /hpf Urine Bacteria Rare H (None) /hpf Hyaline Casts 1 (0-2) /lpf Urine Mucus Moderate H (None) /hpf Urine Yeast (Budding) Rare H (None) /hpf Influenza Type A (PCR) Not Detected (Not Detectd) Influenza Type B (PCR) Not Detected (Not Detectd) RSV (PCR) Not Detected (Not Detectd) SARS-CoV-2 (PCR) Detected A (Not Detectd) 01/05/24 Range/Units 00:12 WBC (3.8-10.6) k/uL RBC (3.80-5.40) m/uL Hgb (11.4-16.0) gm/dL Hct (34.0-46.0) % MCV (80.0-100.0) fL MCH (25.0-35.0) pg MCHC (31.0-37.0) g/dL RDW (11.5-15.5) % Plt Count (150-450) k/uL MPV Neutrophils % % Lymphocytes % % Monocytes % % Eosinophils % % Basophils % % Neutrophils # (1.3-7.7) k/uL Lymphocytes # (1.0-4.8) k/uL Monocytes # (0-1.0) k/uL Eosinophils # (0-0.7) k/uL Basophils # (0-0.2) k/uL PT (10.0-12.5) sec INR (<1.2) APTT (22.0-30.0) sec Sodium (137-145) mmol/L Potassium (3.5-5.1) mmol/L Chloride (98-107) mmol/L Carbon Dioxide (22-30) mmol/L Anion Gap mmol/L BUN (7-17) mg/dL Creatinine (0.52-1.04) mg/dL Est GFR (CKD-EPI)AfAm (>60 ml/min/1.73 sqM) Est GFR (CKD-EPI)NonAf (>60 ml/min/1.73 sqM) Glucose (74-99) mg/dL Plasma Lactic Acid Nando 1.6 (0.7-2.0) mmol/L Calcium (8.4-10.2) mg/dL Magnesium (1.6-2.3) mg/dL Total Bilirubin (0.2-1.3) mg/dL AST (14-36) U/L ALT (4-34) U/L Alkaline Phosphatase (38-126) U/L Troponin I (0.000-0.034) ng/mL NT-Pro-B Natriuret Pep pg/mL Total Protein (6.3-8.2) g/dL Albumin (3.5-5.0) g/dL TSH (0.465-4.680) mIU/L Urine Color Urine Appearance (Clear) Urine pH (5.0-8.0) Ur Specific Franklin (1.001-1.035) Urine Protein (Negative) Urine Glucose (UA) (Negative) Urine Ketones (Negative) Urine Blood (Negative) Urine Nitrite (Negative) Urine Bilirubin (Negative) Urine Urobilinogen (<2.0) mg/dL Ur Leukocyte Esterase (Negative) Urine RBC (0-5) /hpf Urine WBC (0-5) /hpf Ur Squamous Epith Cells (0-4) /hpf Urine Bacteria (None) /hpf Hyaline Casts (0-2) /lpf Urine Mucus (None) /hpf Urine Yeast (Budding) (None) /hpf Influenza Type A (PCR) (Not Detectd) Influenza Type B (PCR) (Not Detectd) RSV (PCR) (Not Detectd) SARS-CoV-2 (PCR) (Not Detectd) Disposition Clinical Impression: Acute cholecystitis, Generalized weakness, Hypomagnesemia Disposition: ADMITTED IP TO THIS HOSP Condition: Stable
[2024-01-04] MEDS: ACETAMINOPHEN TAB 500 MG TAB PO STA (22:18)
[2024-01-04] MEDS: SODIUM CHLORIDE 0.9% 500 ML 500 ML IV ONE (22:19)
--- NOTE | 2024-01-04 22:57 | XR ---
EXAMINATION TYPE: XR chest 2V DATE OF EXAM: 01/04/2024 COMPARISON: NONE HISTORY: Weakness. Cough and fever. TECHNIQUE: Frontal and lateral views of the chest are obtained. FINDINGS: There is no focal air space opacity, pleural effusion, or pneumothorax seen. The cardiac silhouette size is mildly enlarged. The osseous structures are intact. IMPRESSION: Mild cardiomegaly without acute pulmonary infiltrate. [facility], , 01/04/2024 10:55 PM
[2024-01-04 23:11] LABS: Basophils # (A) 0.1 k/uL (0-0.2); Basophils % (A) 1 %; Eosinophils % (A) 0 %; HCT 38.2 % (34.0-46.0); HGB 12.8 gm/dL (11.4-16.0); Lymphocytes # (A) 1.6 k/uL (1.0-4.8); Lymphocytes % (A) 16 %; MCH 31.2 pg (25.0-35.0); MCHC 33.5 g/dL (31.0-37.0); Mean Platelet Volume 8.6; Monocytes % (A) 11 %; Neutrophils # (A) 6.9 k/uL (1.3-7.7); Neutrophils % (A) 70 %; Platelet Count 202 k/uL (150-450); RDW 13.3 % (11.5-15.5); WBC 9.9 k/uL (3.8-10.6)
--- NOTE | 2024-01-04 23:12 | CT ---
EXAMINATION TYPE: CT brain cspine wo con DATE OF EXAM: 01/04/2024 COMPARISON: NONE HISTORY: fall on thinners, hit head, no LOC CT DLP: 1415.6 mGycm. Automated Exposure Control for Dose Reduction was Utilized. TECHNIQUE: CT scan of the head and cervical spine are performed without contrast. FINDINGS: There is no acute intracranial hemorrhage or midline shift identified. Mild ventricular a nd sulcal prominence. Mild low-attenuation in periventricular white matter. The calvarium is intact. The globes are intact and the visualized sinuses are clear. Cervical spine is visualized in its entirety from C1 through upper thoracic levels and demonstrates s light scoliotic curvature without evidence of acute fracture or dislocation. Prevertebral soft tissu e appears within normal limits. The C1-C2 articulation is within normal limits on the coronal images . Vertebral body heights are maintained. Moderate disc space narrowing C4-C5 through C6-C7 level is present. Axial images show multilevel facet degenerative changes bilaterally. Thyroid gland appears w ithin normal limits. Lung apices are clear without pneumothorax. IMPRESSION: 1. There is no acute fracture or dislocation evident in the cervical spine. 2. No acute intracranial hemorrhage or midline shift is seen. [facility], , 01/04/2024 11:09 PM
[2024-01-04 23:24] LABS: ALT 63 U/L (4-34); AST 168 U/L (14-36); African American GFR (CKD) 87 (>60 ml/min/1.73 sqM); Albumin 3.8 g/dL (3.5-5.0); Alkaline Phosphatase 178 U/L (38-126); Anion Gap 7 mmol/L; Blood Urea Nitrogen 19 mg/dL (7-17); Calcium 8.7 mg/dL (8.4-10.2); Carbon Dioxide 28 mmol/L (22-30); Chloride 99 mmol/L (98-107); Glucose 118 mg/dL (74-99); Magnesium 1.5 mg/dL (1.6-2.3); Non-African American GFR(CKD) 75 (>60 ml/min/1.73 sqM); Sodium 134 mmol/L (137-145); Total Bilirubin 1.2 mg/dL (0.2-1.3); Total Protein 7.5 g/dL (6.3-8.2)
[2024-01-04 23:25] LABS: INR 1.2 (<1.2); Partial Thromboplastin Time 27.8 sec (22.0-30.0)
[2024-01-04] MEDS: ONDANSETRON 4 MG/2 ML VIAL IVP STA (23:39)
[2024-01-04] MEDS: MORPHINE SULFATE 2 MG/ML SYRINGE IVP STA (23:43)
[2024-01-04] MEDS: MAGNESIUM SULFATE-D5W PMX 1 GM in DEXTROSE/WATER 1 100ML.BAG IVPB SCH (23:50)
[2024-01-05 00:21] LABS: Appearance,Urine Cloudy (Clear); Bacteria,Urine Rare /hpf; Bilirubin,Urine Negative (Negative); Blood,Urine Small (Negative); Budding Yeast,Urine Rare /hpf; Color,Urine Yellow; Glucose,Urine (UA) Negative (Negative); Hyaline Casts,Urine 1 /lpf (0-2); Ketones,Urine 1+ (Negative); Leukocyte Esterase,Urine Negative (Negative); Mucus,Urine Moderate /hpf; Nitrite,Urine Negative (Negative); PH, Urine 5.5 (5.0-8.0); Protein,Urine 1+ (Negative); RBC,Urine 4 /hpf (0-5); Specific Gravity,Urine 1.029 (1.001-1.035); Squamous Epithelial Cell,Urine 1 /hpf (0-4); WBC,Urine 2 /hpf (0-5)
--- NOTE | 2024-01-05 00:55 | US ---
EXAMINATION TYPE: US gallbladder DATE OF EXAM: 01/05/2024 COMPARISON: NONE CLINICAL INDICATION: Female, 73 years old with history of fever, elevated LFTs, RUQ TTP; Covid+ RUQ t enderness TECHNIQUE: Multiple sonographic images of the right upper quadrant are obtained. FINDINGS: EXAM MEASUREMENTS: Liver Length: 15.2 cm Gallbladder Wall: 0.6 cm CBD: 0.8 cm Right Kidney: 9.2 x 3.5 x 4.4 cm SKIN FORMER NOTES:bowel gas limits exam Pancreas: not seen due to bowel gas Liver: very difficult to penetrate Gallbladder: large stone seen, internal debris with wall thickening Evidence for sonographic Johns's sign: yes CBD: wnl Right Kidney: wnl IMPRESSION: Suboptimal study but the sonographic findings are concerning for acute cholecystitis. Adv ise surgical evaluation. [facility], , 01/05/2024 12:52 AM
[2024-01-05 01:30] LABS: NT-Pro-B-Type Natriuretic Pept 2460 pg/mL
[2024-01-05] MEDS: metroNIDAZOLE-NS PMX 500 MG in SALINE 1 100ML.BAG IVPB STA (01:54)
[2024-01-05] MEDS: CEFEPIME 2 GM in SODIUM CHLORIDE 0.9% 100 ML IVPB STA (01:55)
[2024-01-05] MEDS ORDERED: NALOXONE 0.4 MG/ML 1 ML VIAL IV PRN (02:04)
[2024-01-05] MEDS ORDERED: traMADol 50 MG TAB PO PRN (02:04)
[2024-01-05] MEDS: DEXTROSE 5%-0.45% NACL 1,000 ML IV SCH (04:16)
[2024-01-05] MEDS: AMPICILLIN-SULBACTAM 3 GM in SODIUM CHLORIDE 0.9% 100 ML IVPB SCH (07:02)
[2024-01-05] MEDS: PANTOPRAZOLE 40 MG/10 ML VIAL IV SCH (08:33)
[2024-01-05 09:21] LABS: Basophils % (A) 1 %; Eosinophils % (A) 1 %; HCT 39.1 % (34.0-46.0); HGB 12.6 gm/dL (11.4-16.0); Lymphocytes # (A) 2.4 k/uL (1.0-4.8); Lymphocytes % (A) 38 %; MCH 30.8 pg (25.0-35.0); MCHC 32.3 g/dL (31.0-37.0); MCV 95.3 fL (80.0-100.0); Monocytes # (A) 0.7 k/uL (0-1.0); Monocytes % (A) 11 %; Neutrophils % (A) 46 %; Platelet Count 183 k/uL (150-450); RDW 13.4 % (11.5-15.5); WBC 6.4 k/uL (3.8-10.6)
[2024-01-05 10:05] LABS: Chloride 105 mmol/L (98-107); Glucose 88 mg/dL (74-99); Potassium 3.9 mmol/L (3.5-5.1); Sodium 133 mmol/L (137-145)
[2024-01-05 10:06] LABS: ALT 53 U/L (4-34); AST 97 U/L (14-36); African American GFR (CKD) >90 (>60 ml/min/1.73 sqM); Albumin 3.4 g/dL (3.5-5.0); Alkaline Phosphatase 147 U/L (38-126); Anion Gap 1 mmol/L; Blood Urea Nitrogen 16 mg/dL (7-17); Calcium 8.4 mg/dL (8.4-10.2); Carbon Dioxide 27 mmol/L (22-30); Globulin 3.4 g/dL; Non-African American GFR(CKD) 87 (>60 ml/min/1.73 sqM); Total Bilirubin 0.7 mg/dL (0.2-1.3); Total Protein 6.8 g/dL (6.3-8.2)
--- NOTE | 2024-01-05 10:40 | P.CRDCN ---
History of Present Illness History of present illness: HISTORY OF PRESENT ILLNESS: This is a 73-year-old female with a past medical history significant for persistent atrial fibrillation, hypertension, obstructive sleep apnea, and obesity. Patient follows in the office with Dr. Rasmussen. We have been asked to see the patient in consultation for cardiac risk assessment. Patient examined at the bedside. Patient initially presented to the hospital secondary to a fall. Patient's fall was mechanical and there was no syncope noted. Patient was noted to be febrile. She was tested for COVID and was found to be positive. Patient was febrile overnight with a Tmax of 103.3. The patient currently denies any chest pain or pressure. She denies any shortness of breath. She does report she has had a cough for the past couple weeks. Vital signs are stable this morning. DIAGNOSTICS: - EKG reveals atrial fibrillation with RVR - Chest xray mild cardiomegaly without acute pulmonary infiltrate - Gallbladder ultrasound: Suboptimal study but sonographic findings are concerning for acute cholecystitis. Large gallbladder stone seen with internal debris with wall thickening. - Laboratory data: WBC 6.4. Hemoglobin 12.6. Platelet count 183. Sodium 133. Potassium 3.9. BUN 16. Creatinine 0.66. Bilirubin 0.7. AST 97. ALT 53. TSH 2.150. - Current home cardiac medication list has not been updated at the time of dictation - Most recent echocardiogram obtained in March 2023 revealed EF 55%, mild to moderate mitral regurgitation, moderate tricuspid regurgitation, moderate pulmonary hypertension - Patient underwent Lexiscan stress test in March 2021 which was negative for ischemia - Cardiac catheterization history: Patient denies REVIEW OF SYSTEMS: At the time of my exam: CONSTITUTIONAL: Denies fever or chills. HEENT: Denies blurred vision, vision changes, or eye pain. Denies hemoptysis CARDIOVASCULAR: Denies chest pain. Denies orthopnea. Denies PND. Denies palpitations RESPIRATORY: Denies shortness of breath. GASTROINTESTINAL: Denies abdominal pain. Denies nausea or vomiting. HEMATOLOGIC: Denies bleeding disorders. GENITOURINARY: Denies any blood in urine. SKIN: Denies pruitis. Denies rash. PHYSICAL EXAM: VITAL SIGNS: Reviewed. GENERAL: Well-developed in no acute distress. HEENT: Head is normocephalic. Pupils are equal, round. Sclerae anicteric. Mucous membranes of the mouth are moist. Neck supple. No JVD or thyromegaly LUNGS: Respirations even and unlabored. Lungs essentially clear to auscultation bilaterally. HEART: Irregular rate and rhythm. S1 and S2 heard. ABDOMEN: Soft. Nondistended. Nontender. EXTREMITIES: Normal range of motion. No clubbing or cyanosis. Peripheral pulses intact. No lower extremity edema NEUROLOGIC: Awake and alert. Oriented x 3. ASSESSMENT: Status post mechanical fall without syncope Acute COVID-19 Acute cholecystitis Elevated LFTs Persistent atrial fibrillation, on Pradaxa outpatient Hypertension Obstructive sleep apnea with CPAP use Obesity: BMI 34.2 PLAN: Obtain 2D echo to assess cardiac structure and function Hold Pradaxa. Resume postoperatively when cleared by general surgery Resume metoprolol. Hold lisinopril and hydrochlorothiazide due to soft blood pressures Continue telemetry monitoring There are no absolute contraindications for patient to proceed with cholecystectomy from a cardiac standpoint Further recommendations pending patient course Patient to follow-up postdischarge with Dr. Rasmussen Nurse practitioner note has been reviewed by physician. Signing provider agrees with the documented findings, assessment, and plan of care documented by VACUUM CONDITIONER OPERATOR as a scribe. Past Medical History Past Medical History: Atrial Fibrillation, Hypertension, Osteoarthritis (OA), Vascular Disorder Additional Past Medical History / Comment(s): ankle swelling, environmental allergies-gets allergy shots, vericose veins History of Any Multi-Drug Resistant Organisms: None Reported Additional Past Surgical History / Comment(s): colonoscopy, TLK, LTK Past Psychological History: No Psychological Hx Reported Smoking Status: Never smoker Past Alcohol Use History: None Reported Past Drug Use History: None Reported Medications and Allergies Home Medications Medication Instructions Recorded Confirmed Type lisinopriL [Zestril] 20 mg PO DAILY 03/12/22 03/15/22 History Ascorbic Acid [Vitamin C] 500 mg PO DAILY 03/13/22 03/15/22 History Cholecalciferol [Vitamin D3 (25 25 mcg PO DAILY 03/13/22 03/15/22 History Mcg = 1000 Iu)] Ipratropium Gray 0.06%Nasal 2 spray EA NOSTRIL BID 03/13/22 03/15/22 History [Atrovent Nasal 0.06%] Metoprolol Succinate (ER) [Toprol 25 mg PO DAILY 03/13/22 03/15/22 History XL] Rivaroxaban [Xarelto] 20 mg PO HS 03/13/22 03/15/22 History Sertraline [Zoloft] 50 mg PO DAILY 03/13/22 03/15/22 History hydroCHLOROthiazide [Hydrodiuril] 12.5 mg PO DAILY 03/13/22 03/15/22 History Docusate [Colace] 100 mg PO BID #60 capsule 03/17/22 Rx Doxycycline Monohydrate 100 mg PO BID 14 Days #28 cap 03/17/22 Rx HYDROcodone/APAP 5-325MG [[place] 1 - 2 tab PO Q6HR PRN 7 Days #32 03/17/22 Rx 5-325] tab Omeprazole 40 mg PO DAILY 30 Days #30 cap 03/17/22 Rx Allergies Allergy/AdvReac Type Severity Reaction Status Date / Time No Known Allergies Allergy Verified 01/04/24 21:45 Physical Exam Vitals: Vital Signs Temp Pulse Pulse Resp BP BP Pulse Ox 01/05/24 07:00 98.6 F 63 16 109/74 94 L 01/05/24 02:50 98.4 F 61 17 109/66 97 01/04/24 23:24 90 17 103/41 95 01/04/24 22:15 103.3 F H 01/04/24 21:38 100.2 F H 98 17 108/95 97 Intake and Output 01/04/24 01/05/24 01/05/24 22:59 06:59 14:59 Other: Weight 90.265 kg 90.265 kg Results 01/05/24 08:50 01/05/24 08:50 Cardiac Enzymes 01/04/24 01/04/24 01/05/24 Range/Units 22:11 22:11 08:50 AST 168 H 97 H (14-36) U/L Troponin I <0.012 (0.000-0.034) ng/mL Coagulation 01/04/24 Range/Units 22:11 PT 13.0 H (10.0-12.5) sec APTT 27.8 (22.0-30.0) sec CBC 01/04/24 01/05/24 Range/Units 22:11 08:50 WBC 9.9 6.4 (3.8-10.6) k/uL RBC 4.10 4.10 (3.80-5.40) m/uL Hgb 12.8 12.6 (11.4-16.0) gm/dL Hct 38.2 39.1 (34.0-46.0) % Plt Count 202 183 (150-450) k/uL Comprehensive Metabolic Panel 01/04/24 01/05/24 Range/Units 22:11 08:50 Sodium 134 L 133 L (137-145) mmol/L Potassium 4.0 3.9 (3.5-5.1) mmol/L Chloride 99 105 (98-107) mmol/L Carbon Dioxide 28 27 (22-30) mmol/L BUN 19 H 16 (7-17) mg/dL Creatinine 0.78 0.66 (0.52-1.04) mg/dL Glucose 118 H 88 (74-99) mg/dL Calcium 8.7 8.4 (8.4-10.2) mg/dL AST 168 H 97 H (14-36) U/L ALT 63 H 53 H (4-34) U/L Alkaline Phosphatase 178 H 147 H (38-126) U/L Total Protein 7.5 6.8 (6.3-8.2) g/dL Albumin 3.8 3.4 L (3.5-5.0) g/dL Current Medications Generic Name Dose Route Start Last Admin Trade Name Freq PRN Reason Stop Dose Admin Acetaminophen 650 mg 01/05/24 02:04 Acetaminophen Tab 325 Mg Tab PO Q6HR PRN Mild Pain or Fever > 100.5 Al Hydroxide/Mg Hydroxide 15 ml 01/05/24 02:04 Mag Hydrox/Al Hydrox/Simeth 30 Ml Cup PO Q6HR PRN Indigestion Calcium Carbonate/Glycine 1,000 mg 01/05/24 02:04 Calcium Carbonate 500 Mg Chewable PO Q4HR PRN Dyspepsia Dextrose/Sodium Chloride 1,000 mls @ 20 mls/hr 01/05/24 02:15 01/05/24 04:16 Dextrose 5%-1/2ns Iv Soln IV 20 mls/hr .Q24H DONALDO Administration Ampicillin Sodium/Sulbactam 100 mls @ 200 mls/hr 01/05/24 06:15 01/05/24 07:02 Sodium 3 gm/ Sodium Chloride IVPB 200 mls/hr Q6HR DONALDO Administration Protocol Morphine Sulfate 4 mg 01/05/24 02:04 Morphine Sulfate 4 Mg/Ml Syringe IV Q4HR PRN Severe Pain (Scale 7 to 10) Naloxone HCl 0.2 mg 01/05/24 02:04 Naloxone 0.4 Mg/Ml 1 Ml Vial IV Q2M PRN Opioid Reversal Ondansetron HCl 4 mg 01/05/24 02:04 Ondansetron 4 Mg/2 Ml Vial IVP Q8HR PRN Nausea And Vomiting Pantoprazole Sodium 40 mg 01/05/24 09:00 01/05/24 08:33 Pantoprazole 40 Mg/10 Ml Vial IV 40 mg DAILY DONALDO Administration Tramadol HCl 50 mg 01/05/24 02:04 Tramadol 50 Mg Tab PO Q6H PRN Moderate Pain (Scale 4 to 6) Intake and Output 01/04/24 01/05/24 01/05/24 22:59 06:59 14:59 Other: Weight 90.265 kg 90.265 kg 01/05/24 08:50 01/05/24 08:50
--- NOTE | 2024-01-05 11:21 | P.GSCN ---
History of Present Illness Consult date: 01/05/24 History of present illness: CHIEF COMPLAINT: Fall HISTORY OF PRESENT ILLNESS: This is a 73-year-old female who presented with fall and weakness. She reports her legs gave out. Patient reports that she has not been feeling well for about 3 weeks. Patient reports having right upper quadrant abdominal pain with nausea and vomiting and a decreased appetite. She is also been having a cough, fevers and chills and sweats for 3 weeks. She had a temp as high as 103.3 last night. She is COVID-positive. Abdominal ultrasound had reported concerns for acute cholecystitis with large gallstone, debris in the gallbladder and thickened gallbladder wall with positive Johns sign. Patient started on IV antibiotics. Patient has a history of atrial fibrillation and is on Pradaxa. Last dose of Pradaxa was on Friday. Patient denies any prior abdominal surgeries. PAST MEDICAL HISTORY: See list. PAST SURGICAL HISTORY: See list. MEDICATIONS: See list. ALLERGIES: See list. SOCIAL HISTORY: No illicit drug use. REVIEW OF SYSTEMS: CONSTITUTIONAL: Denies fever or chills. HEENT: Denies blurred vision, vision changes, or eye pain. Denies hemoptysis ENDOCRINE: Denies heat or cold intolerance. CARDIOVASCULAR: Denies chest pain or pressure. RESPIRATORY: No shortness of breath. GASTROINTESTINAL: Please refer to HPI otherwise unremarkable NEURO: Denies history of seizures. PSYCH: No depression or suicidal ideation HEMATOLOGIC: Denies bleeding disorders. LYMPHATIC: The patient denies any lumps and bumps around the neck. GENITOURINARY: Denies any blood in urine or increased urinary frequency. MUSCULOSKELETAL: Denies myalgias. Denies joint swelling. Denies decreased range of motion beyond patients baseline. SKIN: Denies pruitis. Denies rash. PHYSICAL EXAM: VITAL SIGNS: Reviewed GENERAL: Well-developed in no acute distress. HEENT: No sclera icterus. Extraocular movements grossly intact. Moist buccal mucosa. Head is atraumatic, normocephalic. Hears conversational speech. No nasal drainage. NECK: Supple without lymphadenopathy. CHEST: Non-labored respirations and equal bilateral excursions. CARDIOVASCULAR: Palpable 2+ radial pulses. ABDOMEN: Soft. Nondistended. Mild tenderness to palpation to right upper quadrant MUSCULOSKELETAL: No clubbing or cyanosis. NEUROLOGIC: No focal or lateralizing signs. Cranial nerves II through XII grossly intact. PSYCH: Appropriate affect. Alert and oriented to person, place and time. SKIN: Well perfused. Good skin turgor. LABORATORY DATA: WBC 6.4 Hgb 12.6 platelets 183 Sodium 133 potassium 3.9 creatinine 0.66 Total bilirubin 0.7 AST 168 down to 97 ALT 63 down to 53 alk phos 178 down to 147 IMAGING: US reports suboptimal study findings are concerning for acute cholecystitis CT head and cervical spine reports no acute fracture or dislocation no intracranial hemorrhage Echo pending ASSESSMENT: 1. Acute cholecystitis 2. Fall with weakness 3. History of atrial fibrillation on Pradaxa at home 4. Mildly elevated LFTs PLAN: -Patient scheduled for Robotic cholecystectomy today with Dr. Wilkes -Cardiology consulted for cardiac risk assessment. Discussed with cardiology nurse practitioner they reported no absolute contraindication to proceed with surgery -Hold Pradaxa -Continue antibiotics -Increase IV fluids to 75 mL/h due to her n.p.o. status Physician Switchman Supervisor note has been reviewed by physician. Signing provider agrees with the documented findings, assessment, and plan of care. Past Medical History Past Medical History: Atrial Fibrillation, Hypertension, Osteoarthritis (OA), Vascular Disorder Additional Past Medical History / Comment(s): ankle swelling, environmental allergies-gets allergy shots, vericose veins History of Any Multi-Drug Resistant Organisms: None Reported Additional Past Surgical History / Comment(s): colonoscopy, TLK, LTK Past Psychological History: No Psychological Hx Reported Smoking Status: Never smoker Past Alcohol Use History: None Reported Past Drug Use History: None Reported Medications and Allergies Home Medications Medication Instructions Recorded Confirmed Type Metoprolol Succinate (ER) [Toprol 25 mg PO DAILY 03/13/22 01/05/24 History XL] hydroCHLOROthiazide [Hydrodiuril] 12.5 mg PO DAILY 03/13/22 01/05/24 History Dabigatran Etexilate Mesylate 150 mg PO BID 01/05/24 01/05/24 History [Dabigatran Etexilate] Irbesartan 150 mg PO DAILY 01/05/24 01/05/24 History Loratadine [Claritin] 10 mg PO DAILY 01/05/24 01/05/24 History Allergies Allergy/AdvReac Type Severity Reaction Status Date / Time lisinopril AdvReac Cough Verified 01/05/24 10:38 Surgical - Exam Vital Signs Temp Pulse Resp BP Pulse Ox 100.2 F H 98 17 108/95 97 01/04/24 21:38 01/04/24 21:38 01/04/24 21:38 01/04/24 21:38 01/04/24 21:38 Results - Labs 01/05/24 08:50 01/05/24 08:50 Abnormal Lab Results - Last 24 Hours (Table) 01/04/24 01/04/24 01/04/24 Range/Units 22:11 22:11 22:11 PT 13.0 H (10.0-12.5) sec INR 1.2 H (<1.2) Sodium 134 L (137-145) mmol/L BUN 19 H (7-17) mg/dL Glucose 118 H (74-99) mg/dL Magnesium 1.5 L (1.6-2.3) mg/dL AST 168 H (14-36) U/L ALT 63 H (4-34) U/L Alkaline Phosphatase 178 H (38-126) U/L Urine Appearance (Clear) Urine Protein (Negative) Urine Ketones (Negative) Urine Blood (Negative) Urine Bacteria (None) /hpf Urine Mucus (None) /hpf Urine Yeast (Budding) (None) /hpf SARS-CoV-2 (PCR) Detected A (Not Detectd) 01/04/24 Range/Units 23:35 PT (10.0-12.5) sec INR (<1.2) Sodium (137-145) mmol/L BUN (7-17) mg/dL Glucose (74-99) mg/dL Magnesium (1.6-2.3) mg/dL AST (14-36) U/L ALT (4-34) U/L Alkaline Phosphatase (38-126) U/L Urine Appearance Cloudy H (Clear) Urine Protein 1+ H (Negative) Urine Ketones 1+ H (Negative) Urine Blood Small H (Negative) Urine Bacteria Rare H (None) /hpf Urine Mucus Moderate H (None) /hpf Urine Yeast (Budding) Rare H (None) /hpf SARS-CoV-2 (PCR) (Not Detectd) Diabetes panel 01/04/24 Range/Units 22:11 Sodium 134 L (137-145) mmol/L Potassium 4.0 (3.5-5.1) mmol/L Chloride 99 (98-107) mmol/L Carbon Dioxide 28 (22-30) mmol/L BUN 19 H (7-17) mg/dL Creatinine 0.78 (0.52-1.04) mg/dL Glucose 118 H (74-99) mg/dL Calcium 8.7 (8.4-10.2) mg/dL AST 168 H (14-36) U/L ALT 63 H (4-34) U/L Alkaline Phosphatase 178 H (38-126) U/L Total Protein 7.5 (6.3-8.2) g/dL Albumin 3.8 (3.5-5.0) g/dL Thyroid panel 01/04/24 Range/Units 22:11 TSH 2.150 (0.465-4.680) mIU/L Calcium panel 01/04/24 Range/Units 22:11 Calcium 8.7 (8.4-10.2) mg/dL Albumin 3.8 (3.5-5.0) g/dL Pituitary panel 01/04/24 Range/Units 22:11 Sodium 134 L (137-145) mmol/L Potassium 4.0 (3.5-5.1) mmol/L Chloride 99 (98-107) mmol/L Carbon Dioxide 28 (22-30) mmol/L BUN 19 H (7-17) mg/dL Creatinine 0.78 (0.52-1.04) mg/dL Glucose 118 H (74-99) mg/dL Calcium 8.7 (8.4-10.2) mg/dL TSH 2.150 (0.465-4.680) mIU/L Adrenal panel 01/04/24 Range/Units 22:11 Sodium 134 L (137-145) mmol/L Potassium 4.0 (3.5-5.1) mmol/L Chloride 99 (98-107) mmol/L Carbon Dioxide 28 (22-30) mmol/L BUN 19 H (7-17) mg/dL Creatinine 0.78 (0.52-1.04) mg/dL Glucose 118 H (74-99) mg/dL Calcium 8.7 (8.4-10.2) mg/dL Total Bilirubin 1.2 (0.2-1.3) mg/dL AST 168 H (14-36) U/L ALT 63 H (4-34) U/L Alkaline Phosphatase 178 H (38-126) U/L Total Protein 7.5 (6.3-8.2) g/dL Albumin 3.8 (3.5-5.0) g/dL
[2024-01-05] MEDS: METOPROLOL SUCCINATE (ER) 25 MG TAB.ER.24H PO SCH (11:25)
--- NOTE | 2024-01-05 12:02 | CA ---
Transthoracic Echo Report Name: Shira Chau Age: 73 Gender: F : 1950 Exam Date: 01/05/2024 07:32 Exam Location: [facility] Ht (in): 64 Wt (lb): 195 Ordering Physician: Mona Wilkes MD Attending/Referring Phys: Chung RETANA [employer] Teacher Vandana Ramos RDCS Procedure CPT: Indications: afib Cardiac Hx: Technical Quality: Fair Contrast 1: Total Dose (mL): Contrast 2: Total Dose (mL): MEASUREMENTS (Male / Female) Normal Values 2D ECHO LV Diastolic Diameter PLAX 4.8 cm 4.2 - 5.9 / 3.9 - 5.3 cm LV Systolic Diameter PLAX 3.4 cm IVS Diastolic Thickness 0.7 cm 0.6 - 1.0 / 0.6 - 0.9 cm LVPW Diastolic Thickness 0.7 cm 0.6 - 1.0 / 0.6 - 0.9 cm LV Relative Wall Thickness 0.3 LVOT Diameter 1.9 cm LA Volume 119.1 cm??? 18 - 58 / 22 - 52 cm??? LA Volume Index 58.5 cm???/m??? 16 - 28 cm???/m??? Ascending Aorta Diameter 3.3 cm DOPPLER AV Peak Velocity 165.5 cm/s AV Peak Gradient 11.0 mmHg AV Mean Velocity 108.3 cm/s AV Mean Gradient 5.4 mmHg AV Velocity Time Integral 33.7 cm LVOT Peak Velocity 110.9 cm/s LVOT Peak Gradient 4.9 mmHg LVOT Velocity Time Integral 25.5 cm LVOT Stroke Volume 68.9 cm??? LVOT Stroke Volume Index 35.6 ml/m??? LVOT Cardiac Index 2135.5 cm???/min???m??? AV Area Cont Eq vti 2.0 cm??? AV Area Cont Eq pk 1.8 cm??? TR Peak Velocity 332.6 cm/s TR Peak Gradient 44.2 mmHg Right Atrial Pressure 10.0 mmHg Pulmonary Artery Systolic Pressu 54.2 mmHg Right Ventricular Systolic Press 54.2 mmHg PV Peak Velocity 93.9 cm/s PV Peak Gradient 3.5 mmHg FINDINGS Left Ventricle Left ventricular ejection fraction is estimated at 55-60 %. Left ventricular cavity size normal. Left ventricular wall thickness normal. No obvious regional wall motion abnormalities. Right Ventricle Right ventricular dilatation with normal function. Moderate to severe pulmonary hypertension. Right ventricular systolic pressure estimated at 54mm hg. Right Atrium Severe right atrial dilatation. Left Atrium Severely increased left atrial volume. Moderately increased left atrial area. Mitral Valve Structurally normal mitral valve. No evidence for mitral valve prolapse. No mitral stenosis. Mild mitral regurgitation. Aortic Valve Trileaflet aortic valve. Aortic valve sclerosis. No aortic stenosis. No aortic regurgitation. Tricuspid Valve Structurally normal tricuspid valve. No tricuspid stenosis. Moderate tricuspid regurgitation. Pulmonic Valve Pulmonic valve not well visualized. No pulmonic stenosis. Trace pulmonic regurgitation. Pericardium No pericardial effusion. Aorta Normal size aortic root and proximal ascending aorta. CONCLUSIONS Normal biventricular systolic function Severe biatrial enlargement Severe pulmonary hypertension Enlarged RV At least moderate tricuspid regurgitation Aortic sclerosis with no stenosis or insufficiency Thickened mitral valve leaflets Previewed by: Dr. Guero Castillo MD (Electronically Signed) Final Date: 05 January 2024 12:01
--- NOTE | 2024-01-05 13:43 | P.HPIM ---
History of Present Illness H&P Date: 01/05/24 History of present illness; 73-year-old woman who presented to the emergency department with history of fall, 3 weeks of persistent cough and 3 weeks of right upper quadrant abdominal pain. She has a past medical history significant for atrial fibrillation, hypertension and osteoarthritis. Patient states that she was at home and felt her right leg become weak causing her to fall. States she fell towards her side and then onto her back on hardwood floor. Denies any loss of consciousness or hitting her head, however her told her she did hit her head against the door. Patient denies neck pain, back pain, numbness or weakness in her extremities, chest pain, shortness of breath or difficulty in breathing, nausea, vomiting, diarrhea, dysuria, increased urinary frequency. Per the EMS, patient's temperature was 101.6, on arrival to the emergency department was 100.2 and the patient states she took no antipyretics prior to arrival in the emergency department. Rectal temperature done in the emergency department showed a temperature of 103.3. Patient states that she has had some fevers and chills for the last week, and states she had a cough for the last 3 weeks that her doctor thought was secondary to her lisinopril use so changed her medication, she states the cough is still present. Notes that the cough is nonproductive and there is no blood or sputum. She does states she has some right-sided rib/abdominal pain which she suspected was from coughing, she states her primary care without the same. However following resolution to the emergency department and patient's abdominal tenderness in the right upper quadrant and imaging studies patient was shown to have acute cholecystitis. Surgery has been consulted, patient being held n.p.o. in preparation for surgery later today (01/04). Initial lab work done in the ER showed WBCs 9.9, Hgb 12.8, Hct 38.2, PLT 202, PT 13.0, INR 1.2, PTT 27.8, sodium 134, potassium 4.0, BUN 19, creatinine 0.70, magnesium 1.5, AST 168, ALT 63, alkaline phosphatase 178 Urinalysis showed cloudy appearance, 1+ protein, 1+ ketones, small amount of blood, rare bacteria, moderate urine mucus, rare yeast Influenza A not detected Influenza B not detected RSV not detected COVID-19 positive EKG done in the ER showed heart rate of 121, no ST segment elevation or depression seen, no T-wave inversions seen. A-fib with RVR; emergency department suspect secondary to fever, will control fever and treat RVR with antiarrhythmics Chest x-ray done in the ER showed mild cardiomegaly without acute pulmonary infiltrates CT head/cervical spine done showed no acute fracture or dislocation evidence of cervical spine; no acute intracranial hemorrhage or midline shift Gallbladder ultrasound showed a suboptimal study but the sonographic findings are concerning for acute cholecystitis Patient admitted to internal medicine service REVIEW OF SYSTEMS: CONSTITUTIONAL: Fevers, chills, weakness HEENT: No recent visual problems or hearing problems. Denied any sore throat. CARDIOVASCULAR: No chest pain, orthopnea, PND, no palpitations, no syncope. PULMONARY: No shortness of breath, no hemoptysis. Reports cough. GASTROINTESTINAL: No diarrhea. Has had nausea and vomiting, last vomit on Friday (01/02). Reports abdominal pain. NEUROLOGICAL: No headaches, no weakness, no numbness. HEMATOLOGICAL: Denies any bleeding or petechiae. GENITOURINARY: Denies any burning micturition, frequency, or urgency. MUSCULOSKELETAL/RHEUMATOLOGICAL: Denies any joint pain, swelling, or any muscle pain. ENDOCRINE: Denies any polyuria or polydipsia. The rest of the 14-point review of systems is negative. PHYSICAL EXAMINATION: GENERAL: The patient is alert and oriented x3, not in any acute distress. Well developed, well nourished. HEENT: Pupils are round and equally reacting to light. EOMI. No scleral icterus. No conjunctival pallor. Normocephalic, atraumatic. No pharyngeal erythema. No thyromegaly. CARDIOVASCULAR: S1 and S2 present. No murmurs, rubs, or gallops. NECK: C-collar in place, no midline spinal tenderness to palpation PULMONARY: Chest is clear to auscultation, no wheezing or crackles. ABDOMEN: Soft, and nondistended. Tenderness to the right upper quadrant. MUSCULOSKELETAL: No joint swelling or deformity. EXTREMITIES: No cyanosis, clubbing, or pedal edema. NEUROLOGICAL: Gross neurological examination did not reveal any focal deficits. SKIN: No rashes. Assessment and plan # Acute cholecystitis Patient presented with right-sided abdominal pain, which she thought was secondary to coughing Patient presented with a fever, without elevated white count Gallbladder ultrasound completed which was determined to be a suboptimal study however sonographic findings are concerning for acute cholecystitis; surgery was consulted Patient given 2 g cefepime, 500 mg Flagyl each once Patient given 3 g Unasyn every 6 hours per surgery recommendation; switch to Rocephin and Flagyl Patient has tramadol every 6 hours and morphine 4 mg every 4 hours for pain control Patient made n.p.o. and preparation for surgery today (01/04) # Mild COVID-19 infection Patient tested positive for COVID-19 On arrival patient was saturating 97% on room air, currently saturating 94% on room air Patient has had persistent cough for 3 weeks; 3-week history of fever, uncertain origin COVID vs cholecystitis # History of atrial fibrillation Patient has a history of atrial fibrillation Noted on EKG in the emergency department atrial fibrillation with RVR Patient regularly takes Pradaxa; currently may hold - last dose taken Friday per the patient GI prophylaxis: Protonix 40 mg daily Continue to monitor vital signs, monitor CBC, monitor CMP, continue telemetry monitoring Labs and medication were reviewed. Continue with symptomatic treatment. Dictation was produced using [employer] dictation software. please excuse any grammatical, word or spelling errors. Attestation: I have personally seen and examined the patient with Resident, reviewed the documentation and participated and agree with the assessment and plan as written. Saleem Bhatt MD Past Medical History Past Medical History: Atrial Fibrillation, Hypertension, Osteoarthritis (OA), Vascular Disorder Additional Past Medical History / Comment(s): ankle swelling, environmental allergies-gets allergy shots, vericose veins History of Any Multi-Drug Resistant Organisms: None Reported Additional Past Surgical History / Comment(s): colonoscopy, TLK, LTK Past Psychological History: No Psychological Hx Reported Smoking Status: Never smoker Past Alcohol Use History: None Reported Past Drug Use History: None Reported Medications and Allergies Home Medications Medication Instructions Recorded Confirmed Type Metoprolol Succinate (ER) [Toprol 25 mg PO DAILY 03/13/22 01/05/24 History XL] hydroCHLOROthiazide [Hydrodiuril] 12.5 mg PO DAILY 03/13/22 01/05/24 History Irbesartan 150 mg PO DAILY 01/05/24 01/05/24 History Loratadine [Claritin] 10 mg PO DAILY 01/05/24 01/05/24 History Acetaminophen Tab [Tylenol] 1,000 mg PO Q6HR PRN #30 tablet 01/09/24 Rx Ciprofloxacin HCl [Cipro] 500 mg PO BID 10 Days #20 tab 01/09/24 Rx Dabigatran Etexilate Mesylate 150 mg PO BID #0 01/09/24 01/05/24 Rx [Dabigatran Etexilate] metroNIDAZOLE [Flagyl] 500 mg PO TID #30 tab 01/09/24 Rx Allergies Allergy/AdvReac Type Severity Reaction Status Date / Time lisinopril AdvReac Cough Verified 01/05/24 10:38 Physical Exam Vitals: Vital Signs Temp Pulse Pulse Resp BP BP Pulse Ox 01/05/24 07:00 98.6 F 63 16 109/74 94 L 01/05/24 02:50 98.4 F 61 17 109/66 97 01/04/24 23:24 90 17 103/41 95 01/04/24 22:15 103.3 F H 01/04/24 21:38 100.2 F H 98 17 108/95 97 Intake and Output 01/04/24 01/05/24 01/05/24 22:59 06:59 14:59 Other: Weight 90.265 kg 90.265 kg Results CBC & Chem 7: 01/09/24 05:57 01/09/24 05:57 Labs: Abnormal Lab Results - Last 24 Hours (Table) 01/04/24 01/04/24 01/04/24 Range/Units 22:11 22:11 22:11 PT 13.0 H (10.0-12.5) sec INR 1.2 H (<1.2) Sodium 134 L (137-145) mmol/L BUN 19 H (7-17) mg/dL Glucose 118 H (74-99) mg/dL Magnesium 1.5 L (1.6-2.3) mg/dL AST 168 H (14-36) U/L ALT 63 H (4-34) U/L Alkaline Phosphatase 178 H (38-126) U/L Urine Appearance (Clear) Urine Protein (Negative) Urine Ketones (Negative) Urine Blood (Negative) Urine Bacteria (None) /hpf Urine Mucus (None) /hpf Urine Yeast (Budding) (None) /hpf SARS-CoV-2 (PCR) Detected A (Not Detectd) 01/04/24 Range/Units 23:35 PT (10.0-12.5) sec INR (<1.2) Sodium (137-145) mmol/L BUN (7-17) mg/dL Glucose (74-99) mg/dL Magnesium (1.6-2.3) mg/dL AST (14-36) U/L ALT (4-34) U/L Alkaline Phosphatase (38-126) U/L Urine Appearance Cloudy H (Clear) Urine Protein 1+ H (Negative) Urine Ketones 1+ H (Negative) Urine Blood Small H (Negative) Urine Bacteria Rare H (None) /hpf Urine Mucus Moderate H (None) /hpf Urine Yeast (Budding) Rare H (None) /hpf SARS-CoV-2 (PCR) (Not Detectd) Thrombosis Risk Factor Assmnt - Choose All That Apply Each Factor Represents 1 point: Obesity (BMI >25), Varicose veins Each Risk Factor Represents 2 Points: Age 61-74 years Thrombosis Risk Factor Assessment Total Risk Factor Score: 4 Thrombosis Risk Factor Assessment Level: Moderate Risk
[2024-01-05] MEDS: metroNIDAZOLE-NS PMX 500 MG in SALINE 1 100ML.BAG IVPB SCH (15:22)
[2024-01-05] MEDS ORDERED: HEPARIN SODIUM,PORCINE 5,000 UNIT/ML 1 ML VIAL SQ PRN (15:59)
--- NOTE | 2024-01-05 17:41 | P.HPADDEND ---
H&P Addendum H&P Addendum Date: 01/05/24 Additional history obtained from patient. She reports 3-week history of chronic cough including mild ache of the right upper quadrant. She had been on different medications for her hypertension including switching from lisinopril for chronic cough. Patient is now diagnosed with active COVID disease. She is on blood thinner Pradaxa which her last dose was 3 days ago, Friday morning. Additionally, ultrasound independently reviewed demonstrates thickened gallbladder wall consistent with acute cholecystitis. Overall, cardiac risk assessment obtained for atrial fibrillation rapid ventricular response. Patient is at elevated risk for complications due to anticoagulant, atrial fibrillation, acute cholecystitis longstanding.
[2024-01-05] MEDS ORDERED: PROPOFOL 10 MG/ML 20 ML VIAL IV ONE (17:52)
[2024-01-05] MEDS ORDERED: SUCCINYLCHOLINE CHLORIDE 200 MG/10 ML VIAL IV ONE (17:52)
[2024-01-05] MEDS ORDERED: DEXAMETHASONE SOD PHOSPHATE 4 MG/ML 1 ML VIAL ONE (17:52)
[2024-01-05] MEDS ORDERED: SUGAMMADEX SODIUM 200 MG/2 ML SDV IV ONE (17:52)
[2024-01-05] MEDS ORDERED: fentaNYL (PF) 50 MCG/ML 2 ML AMP ONE (17:52)
[2024-01-05] MEDS ORDERED: WATER FOR INJECTION, STERILE 10 ML VIAL IV ONE (17:52)
[2024-01-05] MEDS ORDERED: ceFAZolin 1 GM/50 ML BAG (PMX) ONE (17:52)
[2024-01-05] MEDS ORDERED: LIDOCAINE 1% INJ 10MG/ML (20 ML MDV) ONE (17:52)
[2024-01-05] MEDS ORDERED: GLYCOPYRROLATE 0.2 MG/ML 2 ML VIAL ONE (17:52)
[2024-01-05] MEDS ORDERED: PHENYLEPHRINE 10 MG/ML VIAL ONE (17:52)
[2024-01-05] MEDS ORDERED: ONDANSETRON 4 MG/2 ML VIAL ONE (17:52)
[2024-01-05] MEDS ORDERED: ROCURONIUM 10 MG/ML (5 ML VIAL) IV ONE (17:52)
[2024-01-05] MEDS ORDERED: PHENYLEPHRINE-0.9% NACL SYG 1,000 MCG/10 ML SYRINGE ONE (17:52)
[2024-01-05] MEDS ORDERED: HEPARIN SODIUM,PORCINE 5,000 UNIT/ML 1 ML VIAL ONE (17:52)
[2024-01-05] MEDS: SODIUM CHLORIDE 0.9% 50 ML with ceFAZolin 2,000 MG IV ONE (17:56)
[2024-01-05] MEDS: IV FLUID CONTINUATION 1,000 ML IV ONE (17:56)
[2024-01-05] MEDS: LIDOCAINE 1%-EPI 1:100,000 20 ML VIAL SQ ONE (18:18)
--- NOTE | 2024-01-05 22:12 | P.OP ---
Date of Procedure: 01/05/24 Description of Procedure: SURGEON: ENRIKE YEAGER MD PREOPERATIVE DIAGNOSES: 1. Acute cholecystitis 2. Symptomatic gallstones 3. Hypertensive heart disease 4. Atrial fibrillation 5. Pulmonary hypertension 6. Obesity due to excess calories, BMI 34.2 POSTOPERATIVE DIAGNOSES: 1. Acute hemorrhagic gangrenous cholecystitis with cystic duct obstruction due to gallstones 2. 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 Hypertensive heart disease 4. Atrial fibrillation 5. Pulmonary hypertension 6. Obesity due to excess calories, BMI 34.2 OPERATION: 1. Robotic-assisted da Hiro Xi laparoscopic lysis of adhesions over 3 hours 2. Robotic-assisted da Hiro Xi laparoscopic cholecystectomy, multiport with FIREFLY 3. Placement of round #19 John-Angulo drain, hepatic fossa ESTIMATED BLOOD LOSS: 100 mL. SPECIMENS REMOVED: Gallbladder. COMPLICATIONS: None. OPERATIVE FINDINGS: 1. Acute gangrenous cholecystitis with hydrops including gallbladder to abdominal wall cutaneous fistula with abscess 2. Indocyanine green confirms acute cholecystitis with lack of contrast in gallbladder 3. Severe right upper quadrant adhesions including pericholecystic adhesions requiring extensive dissection with 3 hours INDICATIONS: The patient is a 73 year-old female who presents with epigastric right upper quadrant pain, symptomatic gallstones, clinical features of acute cholecystitis. Antibiotic management including pain management was prescribed to manage her cholecystitis. Cardiac risk assessment was performed prior to surgery. Surgical intervention with cholecystectomy was described. Robotic assisted laparoscopic approach was described. Benefits and risks of the procedure including but not limited to bleeding, infection, injury to the biliary tree was reviewed. Informed consent was obtained. DESCRIPTION OF PROCEDURE: Patient was brought to the operating room, placed in supine position. After general induction, the abdomen had been prepped and draped in standard sterile fashion. The robotic da Hiro XI system was primed. After a timeout protocol was performed, the patient had been prepped and draped in standard sterile fashion. The patient was injected with indocyanine green. A 5 mm 0 degrees laparoscopic trocar entry was performed along the left upper quadrant. The abdomen insufflated to 15 mmHg pressure which was tolerated well. Diagnostic laparoscopy demonstrated no injury to bowel viscera or mesentery. The liver surface was unremarkable. A moderately distended gallbladder was identified adding complexity to the case. Next, two 8 mm robotic ports were placed along the right upper abdomen. The camera 8-mm port was maintained along the epigastrium. Another 8 mm port was placed along the left upper abdominal wall after exchanging the 5 mm port. Please note that the ports were placed at least 10 to 15 cm away from the target anatomy of the gallbladder. The robot was docked along the left lateral abdomen. The patient was repositioned in reverse Trendelenburg position at 21 with the right side up 70. Using a grasper for arm 3, a grasper for arm 4, including hook cautery for arm 1, the robotic system was docked and primed as described. Instruments were interchanged by the training assistant including hook cautery, Bovie cautery and clip appliers. Additional instruments including vessel sealer, robotic suction burring machine operator, robotic stapler were made available. I had sat at the console. The gallbladder was encased in surrounding tissue including the proximal transverse colon, omentum adding complexity to the case and requiring extensive lysis of adhesions using blunt and sharp dissection using vessel sealer including hook artery for over one hour. The gallbladder was reflected towards the dome of the liver. The gallbladder was moderately distended adding complexity to the case. Edema was found along the cystic triangle including infundibulum. Initial dissection was performed on the gallbladder infundibulum using indocyanine green to illuminate the cystic duct and common bile duct. Due to moderate distention of the infundibulum, dome down technique was performed removing the gallbladder from the hepatic fossa starting from the fundus towards the infundibulum. Using a sponge, the liver was reflected towards the diaphragm and starting at the gallbladder fundus, hook cautery was used between the liver and the gallbladder. The patient pre-existing easy bleeding from her skin incisions and from the liver bed requiring hemostatic agents such as fibular. As the gallbladder was dissected from the hepatic fossa, hemostasis was checked using vessel sealer along the posterior gallbladder. Next, indocyanine green was used to confirm the common bile duct as well as cystic duct. The entire gallbladder was without contrast consistent with acute cholecystitis. The infundibulum was retracted laterally away from the common bile duct. The left upper quadrant trocar was exchanged for a 12 mm robotic trocar. FIREFLY was used to identify the common bile duct. Robotic 45 mm green staple loads were fired across the infundibulum as the cystic duct and cystic structures were moderately edematous. Additionally, gallstone was impacted along the neck of the gallbladder. Bleeding along the liver bed was controlled and hemostatic agents. The abdomen was irrigated with normal saline solution of 1 L. Indocyanine green was used to confirm no bile leak from the staple line. Sponges were removed from the abdomen. The robot was undocked. I re-scrubbed into the case. A 10 mm Endo Catch bag was used to remove the gallbladder in total via the left upper quadrant incision after widening the incision. The specimen was removed from the abdominal cavity. Grant Velez and 0 Vicryl was used to close the fascial defect of the left upper quadrant. A round #19 drain was placed along the right upper quadrant at the hepatic fossa and exited via the right lateral trocar. A drain stitch 2-0 nylon was placed. All pneumoperitoneum instruments were evacuated from the abdominal cavity. The incisions were cleansed using dilute hydrogen peroxide. The incisions were reapproximated using 4-0 Monocryl in an interrupted subcuticular fashion. Please note along the trocar sites, local anesthetic was placed as a field block prior to insertion of all instruments. Liquid glue was applied to the skin. Optifoam was placed along the BALWINDER site for the left upper quadrant. At the end of the procedure needle, sponge, and instrument count had been verified correct by the nursing surgical services director. The patient was transferred to postanesthesia care unit in stable condition. Intraoperative films were shared with the patient's family who were pleased with the level of care.
[2024-01-05] MEDS: ONDANSETRON 4 MG/2 ML VIAL IVP PRN (22:22)
[2024-01-06] MEDS: PIPERACILLIN-TAZOBACTAM 3.375 GM in SODIUM CHLORIDE 0.9% 100 ML IVPB SCH (00:06)
[2024-01-06] MEDS: MORPHINE SULFATE 4 MG/ML SYRINGE IV PRN (00:06)
[2024-01-06] MEDS: MAG HYDROX/AL HYDROX/SIMETH 30 ML CUP PO PRN (00:15)
[2024-01-06] MEDS: HYDROmorphone 1 MG/ML 1 ML SYRINGE IVP PRN (03:37)
[2024-01-06] MEDS: INDOCYANINE GREEN 25 MG VIAL IV STA (04:04)
[2024-01-06 07:25] LABS: INR 1.2 (<1.2)
[2024-01-06] MEDS: HEPARIN SODIUM,PORCINE 5,000 UNIT/ML 1 ML VIAL SQ SCH (08:26)
[2024-01-06 09:06] LABS: ALT 59 U/L (8-44); AST 133 U/L (13-35); Albumin 3.3 g/dL (3.8-4.9); Albumin/Globulin Ratio 1.03 Ratio (1.60-3.17); Alkaline Phosphatase 116 U/L (41-126); BUN/Creat Ratio 18.67 Ratio (12.00-20.00); Blood Urea Nitrogen 16.8 mg/dL (9.0-27.0); Calcium 7.8 mg/dL (8.7-10.3); Carbon Dioxide 24.4 mmol/L (21.6-31.8); Chloride 100 mmol/L (96-109); Globulin 3.2 g/dL (1.6-3.3); Glucose 146 mg/dL (70-110); Lipase 16 U/L (14-63); Potassium 4.3 mmol/L (3.5-5.5); Sodium 135 mmol/L (135-145); Total Bilirubin 0.3 mg/dL (0.3-1.2); Total Protein 6.5 g/dL (6.2-8.2)
[2024-01-06 09:20] LABS: HCT 38.6 % (37.2-46.3); HGB 12.5 g/dL (12.0-15.0); MCH 30.5 pg (27.0-32.0); MCHC 32.4 g/dL (32.0-37.0); MCV 94.1 FL (80.0-97.0); Mean Platelet Volume 10.2 FL (9.5-12.2); NRBC Per 100 WBC 0 X 10*3/uL (0.00-0.01); Platelet Count 181 X 10*3/uL (140-440); RDW 13.4 % (11.5-14.5); WBC 8.64 X 10*3/uL (4.50-10.00)
[2024-01-06 09:21] LABS: Basophils # (A) 0.01 X 10*3/uL (0.00-0.10); Basophils % (A) 0.1 %; Eosinophils # (A) 0 X 10*3/uL (0.04-0.35); Eosinophils % (A) 0 %; Lymphocytes # (A) 0.99 X 10*3/uL (0.90-5.00); Lymphocytes % (A) 11.5 %; Monocytes # (A) 0.67 X 10*3/uL (0.20-1.00); Monocytes % (A) 7.8 %; Neutrophils # (A) 6.94 X 10*3/uL (1.80-7.70); Neutrophils % (A) 80.3 %
--- NOTE | 2024-01-06 12:49 | P.PN ---
Subjective Progress Note Date: 01/06/24 CHIEF COMPLAINT: Gangrenous cholecystitis HISTORY OF PRESENT ILLNESS: Patient is postop day #1 status post robotic laparoscopic cholecystectomy and lysis of adhesions. Patient reports her pain is controlled. She denies any nausea or vomiting. Afebrile. White count 8.64 total bilirubin 0.3 AST up at 133 ALT 59 alk phos 116 PHYSICAL EXAM: VITAL SIGNS: Reviewed GENERAL: Well-developed in no acute distress. HEENT: No sclera icterus. Extraocular movements grossly intact. Moist buccal mucosa. Head is atraumatic, normocephalic. Hears conversational speech. No nasal drainage. NECK: Supple without lymphadenopathy. CHEST: Non-labored respirations and equal bilateral excursions. CARDIOVASCULAR: Palpable 2+ radial pulses. ABDOMEN: Soft. Nondistended. Incision sites clean dry and intact. BALWINDER drain with sanguinous fluid MUSCULOSKELETAL: No clubbing or cyanosis. NEUROLOGIC: No focal or lateralizing signs. Cranial nerves II through XII grossly intact. PSYCH: Appropriate affect. Alert and oriented to person, place and time. SKIN: Well perfused. Good skin turgor. ASSESSMENT: 1. Acute hemorrhagic gangrenous cholecystitis with cystic duct obstruction due to gallstones 2. 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 Hypertensive heart disease 4. Atrial fibrillation 5. Pulmonary hypertension 6. Obesity due to excess calories, BMI 34.2 7. COVID-positive PLAN: -Consult placed for infectious disease for antibiotic management -Continue antibiotics -Continue pain management -Continue low-fat diet -Continue to monitor BALWINDER drain output -Continue low-fat diet -Encourage patient to increase activity level -Encourage patient to use incentive spirometer -DVT prophylaxis subcu heparin and GI prophylaxis Protonix Physician Emissions Testing Technician note has been reviewed by physician. Signing provider agrees with the documented findings, assessment, and plan of care. Objective - Vital Signs Vital signs: Vital Signs Temp 98.9 F 01/06/24 07:35 Pulse 69 01/06/24 07:35 Resp 17 01/06/24 07:35 BP 107/70 01/06/24 07:35 Pulse Ox 90 L 01/06/24 07:35 FiO2 Intake & Output 01/05/24 01/06/24 01/06/24 18:59 06:59 18:59 Intake Total 1000 0 Output Total 250 Balance 1000 -250 0 Intake: IV 550 Intake, IV Titration 450 Amount Ampicillin-Sulbactam 3 gm 100 In Sodium Chloride 0.9% 100 ml @ 200 mls/hr IVPB Q6HR [facility] Rx#:[id number] Dextrose 5%-0.45% NaCl 1, 300 000 ml @ 75 mls/hr IV . [id number] [facility] Rx#:[id number] cefTRIAXone 2 gm In 50 Sodium Chloride 0.9% 50 ml @ 100 mls/hr IVPB Q24HR [facility] Rx#:[id number] Oral 0 Output: Urine 150 Estimated Blood Loss 100 Other: Voiding Method Indwelling Catheter Toilet - Labs CBC & Chem 7: 01/06/24 05:31 01/06/24 05:31 Labs: Abnormal Lab Results - Last 24 Hours (Table) 01/06/24 01/06/24 01/06/24 Range/Units 05:31 05:31 05:31 Eosinophils # 0 L (0.04-0.35) X 10*3/uL PT 13.0 H (10.0-12.5) sec INR 1.2 H (<1.2) Glucose 146 H (70-110) mg/dL Calcium 7.8 L (8.7-10.3) mg/dL AST 133 H (13-35) U/L ALT 59 H (8-44) U/L Albumin 3.3 L (3.8-4.9) g/dL Albumin/Globulin Ratio 1.03 L (1.60-3.17) Ratio
--- NOTE | 2024-01-06 13:06 | P.PN ---
Subjective HISTORY OF PRESENT ILLNESS: This is a 73-year-old female with a past medical history significant for persistent atrial fibrillation, hypertension, obstructive sleep apnea, and obesity. Patient follows in the office with Dr. Rasmussen. We have been asked to see the patient in consultation for cardiac risk assessment. Patient examined at the bedside. Patient initially presented to the hospital secondary to a fall. Patient's fall was mechanical and there was no syncope noted. Patient was noted to be febrile. She was tested for COVID and was found to be positive. Patient was febrile overnight with a Tmax of 103.3. The patient currently denies any chest pain or pressure. She denies any shortness of breath. She does report she has had a cough for the past couple weeks. Vital signs are stable this morning. DIAGNOSTICS: - EKG reveals atrial fibrillation with RVR - Chest xray mild cardiomegaly without acute pulmonary infiltrate - Gallbladder ultrasound: Suboptimal study but sonographic findings are concerning for acute cholecystitis. Large gallbladder stone seen with internal debris with wall thickening. - Laboratory data: WBC 6.4. Hemoglobin 12.6. Platelet count 183. Sodium 133. Potassium 3.9. BUN 16. Creatinine 0.66. Bilirubin 0.7. AST 97. ALT 53. TSH 2.150. - Current home cardiac medication list has not been updated at the time of dictation - Most recent echocardiogram obtained in March 2023 revealed EF 55%, mild to moderate mitral regurgitation, moderate tricuspid regurgitation, moderate pulmonary hypertension - Patient underwent Lexiscan stress test in March 2021 which was negative for ischemia - Cardiac catheterization history: Patient denies 01/06/2024 Patient examined this morning at the bedside. Patient is status post robotic assisted laparoscopic cholecystectomy with Dr. Wilkes. Postop day #1. Patient without complaints of chest pain or shortness of breath. Vital signs are stable. Echocardiogram completed revealing ejection fraction 55 to 60%, moderate severe pulmonary hypertension, mild MR, moderate TR. PHYSICAL EXAM: VITAL SIGNS: Reviewed. GENERAL: Well-developed in no acute distress. HEENT: Head is normocephalic. Pupils are equal, round. Sclerae anicteric. Mucous membranes of the mouth are moist. Neck supple. No JVD or thyromegaly LUNGS: Respirations even and unlabored. Lungs essentially clear to auscultation bilaterally. HEART: Irregular rate and rhythm. S1 and S2 heard. ABDOMEN: Soft. Nondistended. Nontender. EXTREMITIES: Normal range of motion. No clubbing or cyanosis. Peripheral pulses intact. No lower extremity edema NEUROLOGIC: Awake and alert. Oriented x 3. ASSESSMENT: Status post mechanical fall without syncope Acute COVID-19 Acute cholecystitis, s/p cholecystectomy Elevated LFTs Persistent atrial fibrillation, on Pradaxa outpatient Hypertension Obstructive sleep apnea with CPAP use Obesity: BMI 34.2 PLAN: Resume Pradaxa when cleared by general surgery Continue current cardiac medications Continue telemetry monitoring Further recommendations pending patient course Patient to follow-up postdischarge with Dr. Rasmussen We will sign off. Please reconsult if needed. Nurse practitioner note has been reviewed by physician. Signing provider agrees with the documented findings, assessment, and plan of care documented by [employer]PA[employer] as a scribe. Objective - Vital Signs Vital signs: Vital Signs Temp 98.9 F 01/06/24 07:35 Pulse 69 01/06/24 07:35 Resp 17 01/06/24 07:35 BP 107/70 01/06/24 07:35 Pulse Ox 90 L 01/06/24 07:35 FiO2 Intake & Output 01/05/24 01/06/24 01/06/24 18:59 06:59 18:59 Intake Total 1000 0 Output Total 250 Balance 1000 -250 0 Intake: IV 550 Intake, IV Titration 450 Amount Ampicillin-Sulbactam 3 gm 100 In Sodium Chloride 0.9% 100 ml @ 200 mls/hr IVPB Q6HR [facility] Rx#:[id number] Dextrose 5%-0.45% NaCl 1, 300 000 ml @ 75 mls/hr IV . [id number] [facility] Rx#:[id number] cefTRIAXone 2 gm In 50 Sodium Chloride 0.9% 50 ml @ 100 mls/hr IVPB Q24HR [facility] Rx#:[id number] Oral 0 Output: Urine 150 Estimated Blood Loss 100 Other: Voiding Method Indwelling Catheter Toilet - Labs CBC & Chem 7: 01/06/24 05:31 01/06/24 05:31 Labs: Abnormal Lab Results - Last 24 Hours (Table) 01/06/24 01/06/24 01/06/24 Range/Units 05:31 05:31 05:31 Eosinophils # 0 L (0.04-0.35) X 10*3/uL PT 13.0 H (10.0-12.5) sec INR 1.2 H (<1.2) Glucose 146 H (70-110) mg/dL Calcium 7.8 L (8.7-10.3) mg/dL AST 133 H (13-35) U/L ALT 59 H (8-44) U/L Albumin 3.3 L (3.8-4.9) g/dL Albumin/Globulin Ratio 1.03 L (1.60-3.17) Ratio
--- NOTE | 2024-01-06 15:02 | P.PN ---
Subjective Progress Note Date: 01/06/24 73-year-old woman who presented to the emergency department with history of fall, 3 weeks of persistent cough and 3 weeks of right upper quadrant abdominal pain. She has a past medical history significant for atrial fibrillation, hypertension and osteoarthritis. Patient states that she was at home and felt her right leg become weak causing her to fall. States she fell towards her side and then onto her back on hardwood floor. Denies any loss of consciousness or hitting her head, however her told her she did hit her head against the door. Patient denies neck pain, back pain, numbness or weakness in her extremities, chest pain, shortness of breath or difficulty in breathing, nausea, vomiting, diarrhea, dysuria, increased urinary frequency. Per the EMS, patient's temperature was 101.6, on arrival to the emergency department was 100.2 and the patient states she took no antipyretics prior to arrival in the emergency department. Rectal temperature done in the emergency department daniel wed a temperature of 103.3. Patient states that she has had some fevers and chills for the last week, and states she had a cough for the last 3 weeks that her doctor thought was secondary to her lisinopril use so changed her medication, she states the cough is still present. Notes that the cough is nonproductive and there is no blood or sputum. She does states she has some right-sided rib/abdominal pain which she suspected was from coughing, she states her primary care without the same. However following resolution to the emergency department and patient's abdominal tenderness in the right upper quadrant and imaging studies patient was shown to have acute cholecystitis. Surgery has been consulted, patient being held n.p.o. in preparation for surgery later today (01/04). Initial lab work done in the ER showed WBCs 9.9, Hgb 12.8, Hct 38.2, PLT 202, PT 13.0, INR 1.2, PTT 27.8, sodium 134, potassium 4.0, BUN 19, creatinine 0.70, magnesium 1.5, AST 168, ALT 63, alkaline phosphatase 178 Urinalysis showed cloudy appearance, 1+ protein, 1+ ketones, small amount of blood, rare bacteria, moderate urine mucus, rare yeast COVID-19 positive 01/06/24 - Patient is post-op day 1. Patient states she is feeling well, better than she was yesterday. States that she has some abdominal pain which she rates as a 4/10, however denies nausea, vomiting, fevers, chills and she states that she is no longer coughing today. Per the operative report patient was found to have an acute gangrenous cholecystitis with hydrops of the gallbladder to the abdominal wall cutaneous fistula with abscess, severe right upper quadrant adhesions including pericholecystic adhesions requiring extensive dissections. Vital signs of this morning show blood pressure 107/70, heart rate of 69, respiratory rate 17, oxygen saturation 90% on room air. Patient was started on Zosyn, will continue the Flagyl however discontinued Rocephin. Infectious disease consulted for their recommendations regarding antibiotic course. New labs - WBCs 8.64, Hgb 12.5,Hct 30.6, PLT 181; PT 13, INR 1.2; sodium 135, potassium 4.3, BUN 16.8, creatinine 0.9, AST 133, ALT 59 REVIEW OF SYSTEMS: CONSTITUTIONAL: Fevers, chills, weakness HEENT: No recent visual problems or hearing problems. Denied any sore throat. CARDIOVASCULAR: No chest pain, orthopnea, PND, no palpitations, no syncope. PULMONARY: No shortness of breath, no hemoptysis. Reports cough. GASTROINTESTINAL: No diarrhea. Has had nausea and vomiting, last vomit on Friday (01/02). Reports abdominal pain. NEUROLOGICAL: No headaches, no weakness, no numbness. HEMATOLOGICAL: Denies any bleeding or petechiae. GENITOURINARY: Denies any burning micturition, frequency, or urgency. MUSCULOSKELETAL/RHEUMATOLOGICAL: Denies any joint pain, swelling, or any muscle pain. ENDOCRINE: Denies any polyuria or polydipsia. The rest of the 14-point review of systems is negative. PHYSICAL EXAMINATION: GENERAL: The patient is alert and oriented x3, not in any acute distress. Well developed, well nourished. HEENT: Pupils are round and equally reacting to light. EOMI. No scleral icterus. No conjunctival pallor. Normocephalic, atraumatic. No pharyngeal erythema. No thyromegaly. CARDIOVASCULAR: S1 and S2 present. No murmurs, rubs, or gallops. NECK: C-collar in place, no midline spinal tenderness to palpation PULMONARY: Chest is clear to auscultation, no wheezing or crackles. ABDOMEN: Soft, and nondistended. Tenderness to the right upper quadrant. MUSCULOSKELETAL: No joint swelling or deformity. EXTREMITIES: No cyanosis, clubbing, or pedal edema. NEUROLOGICAL: Gross neurological examination did not reveal any focal deficits. SKIN: No rashes. Assessment and plan # Acute cholecystitis Patient presented with right-sided abdominal pain, which she thought was secondary to coughing Patient presented with a fever, without elevated white count Gallbladder ultrasound completed which was determined to be a suboptimal study however sonographic findings are concerning for acute cholecystitis; surgery was consulted Patient given 2 g cefepime, 500 mg Flagyl each once Patient given 3 g Unasyn every 6 hours per surgery recommendation; switch to Rocephin and Flagyl Patient has tramadol every 6 hours and morphine 4 mg every 4 hours for pain control Patient made n.p.o. and preparation for surgery today (01/04) Acute gangrenous cholecystitis with hydrops of the gallbladder to the abdominal wall cutaneous fistula with abscess, severe right upper quadrant adhesions including pericholecystic adhesions requiring extensive dissections Discontinue Rocephin; patient started on Zosyn and will continue Flagyl # Mild COVID-19 infection Patient tested positive for COVID-19 On arrival patient was saturating 97% on room air, currently saturating 94% on room air Patient has had persistent cough for 3 weeks; 3-week history of fever, uncertain origin COVID vs cholecystitis # History of atrial fibrillation Patient has a history of atrial fibrillation Noted on EKG in the emergency department atrial fibrillation with RVR Patient regularly takes Pradaxa; currently may - last dose taken Friday per the patient GI prophylaxis: Protonix 40 mg daily Continue to monitor vital signs, monitor CBC, monitor CMP, continue telemetry monitoring Labs and medication were reviewed. Continue with symptomatic treatment. Dictation was produced using [employer] dictation software. please excuse any grammatical, word or spelling errors. Attestation: I have personally seen and examined the patient with Resident, reviewed the documentation and participated and agree with the assessment and plan as written. Saleem Bhatt MD Objective - Vital Signs Vital signs: Vital Signs Temp 98.9 F 01/06/24 07:35 Pulse 69 01/06/24 07:35 Resp 17 01/06/24 07:35 BP 107/70 01/06/24 07:35 Pulse Ox 90 L 01/06/24 07:35 FiO2 Intake & Output 01/05/24 01/06/24 01/06/24 18:59 06:59 18:59 Intake Total 1000 Output Total 250 Balance 1000 -250 Intake: IV 550 Intake, IV Titration 450 Amount Ampicillin-Sulbactam 3 gm 100 In Sodium Chloride 0.9% 100 ml @ 200 mls/hr IVPB Q6HR [facility] Rx#:[id number] Dextrose 5%-0.45% NaCl 1, 300 000 ml @ 75 mls/hr IV . [id number] [facility] Rx#:[id number] cefTRIAXone 2 gm In 50 Sodium Chloride 0.9% 50 ml @ 100 mls/hr IVPB Q24HR [facility] Rx#:[id number] Output: Urine 150 Estimated Blood Loss 100 Other: Voiding Method Indwelling Catheter - Labs CBC & Chem 7: 01/09/24 05:57 01/09/24 05:57 Labs: Abnormal Lab Results - Last 24 Hours (Table) 01/05/24 01/06/24 Range/Units 08:50 05:31 PT 13.0 H (10.0-12.5) sec INR 1.2 H (<1.2) Sodium 133 L (137-145) mmol/L AST 97 H (14-36) U/L ALT 53 H (4-34) U/L Alkaline Phosphatase 147 H (38-126) U/L Albumin 3.4 L (3.5-5.0) g/dL
[2024-01-06] MEDS: CALCIUM CARBONATE 500 MG CHEWABLE PO PRN (15:24)
[2024-01-06] MEDS: SODIUM CHLORIDE 0.9% 1,000 ML IV ONE (20:50)
[2024-01-06] MEDS: MAGNESIUM SULFATE-D5W PMX 1 GM in DEXTROSE/WATER 1 100ML.BAG IVPB SCH (21:03)
[2024-01-06] MEDS: ACETAMINOPHEN TAB 325 MG TAB PO PRN (22:01)
[2024-01-06] MEDS: SIMETHICONE 40 MG/0.6 ML DROPS 2,000 MG/30 ML BOTTLE PO SCH (22:03)
--- NOTE | 2024-01-06 23:06 | P.CONS ---
History of Present Illness - Reason for Consult Consult date: 01/06/24 Abscess form gallbladder/cholecystitis Requesting physician: Mona Wilkes - Chief Complaint Weakness and fall x 2 days - History of Present Illness Patient is a 73-year-old female with a past medical history significant for atrial fibrillation hypertension osteoarthritis presenting to the hospital 2 days ago after apparently the patient did have a fall patient mentioned that right leg became weak causing her to fall she fell towards the side denies any loss of consciousness patient on presentation to the hospital was noted to be febrile with a temperature of 103.3 F patient was not tachycardic or hypertensive not hypoxic or need for supplemental oxygen she did have a white count of 9.9 creatinine was normal liver enzymes are elevated urine was negative he did tested positive for COVID influenza RSV was negative patient did have a chest x-ray mild cardiomegaly without acute pulmonary infiltrate patient did have gallbladder ultrasound large stone seen in terminal diabetes with wall thickening patient has been evaluated by general surgery she was taken to the OR last night and the patient is status post robotic assisted laparoscopic lysis of adhesion cholecystectomy and placement of a drain patient has been started on Zosyn was initially on Rocephin infectious disease was consulted for further management of antibiotic therapy Review of Systems Positive point and negatives has been mentioned in the HPI, complete review of systems was performed and all other systems are negative Past Medical History Past Medical History: Atrial Fibrillation, Hypertension, Osteoarthritis (OA), Vascular Disorder Additional Past Medical History / Comment(s): ankle swelling, environmental allergies-gets allergy shots, vericose veins History of Any Multi-Drug Resistant Organisms: None Reported Additional Past Surgical History / Comment(s): colonoscopy, TLK, LTK Past Psychological History: No Psychological Hx Reported Smoking Status: Never smoker Past Alcohol Use History: None Reported Past Drug Use History: None Reported Medications and Allergies Home Medications Medication Instructions Recorded Confirmed Type Metoprolol Succinate (ER) [Toprol 25 mg PO DAILY 03/13/22 01/05/24 History XL] hydroCHLOROthiazide [Hydrodiuril] 12.5 mg PO DAILY 03/13/22 01/05/24 History Dabigatran Etexilate Mesylate 150 mg PO BID 01/05/24 01/05/24 History [Dabigatran Etexilate] Irbesartan 150 mg PO DAILY 01/05/24 01/05/24 History Loratadine [Claritin] 10 mg PO DAILY 01/05/24 01/05/24 History Allergies Allergy/AdvReac Type Severity Reaction Status Date / Time lisinopril AdvReac Cough Verified 01/05/24 10:38 Physical Exam Vitals: Vital Signs Temp Pulse Resp BP BP Pulse Ox 01/06/24 07:35 98.9 F 69 17 107/70 90 L 01/06/24 02:05 70 134/81 94 L 01/06/24 01:25 72 146/80 94 L 01/06/24 00:15 73 122/78 95 01/05/24 23:45 68 134/85 97 01/05/24 23:15 77 131/75 94 L 01/05/24 23:00 79 123/76 93 L 01/05/24 22:45 85 126/77 90 L 01/05/24 22:30 73 121/77 92 L 01/05/24 22:15 98.4 F 72 104/65 93 L 01/05/24 15:00 99.9 F H 58 L 16 108/63 94 L Intake and Output 01/05/24 01/06/24 01/06/24 22:59 06:59 14:59 Intake Total 550 0 Output Total 100 150 Balance 450 -150 0 Intake: IV 550 Oral 0 Output: Urine 150 Estimated Blood Loss 100 Other: Voiding Method Indwelling Catheter Toilet GENERAL DESCRIPTION: Elderly female lying in bed, no distress. No tachypnea or accessory muscle of respiration use. HEENT: Shows Pallor , no scleral icterus. Oral mucous membrane is dry. No pharyngeal erythema or thrush NECK: Trachea central, no thyromegaly. LUNGS: Unlabored breathing. Clear to auscultation anteriorly. No wheeze or crackle. HEART: S1, S2, regular rate and rhythm. No loud murmur ABDOMEN: Soft, mild right-sided tenderness EXTREMITIES: No edema of feet. SKIN: No rash, no masses palpable. NEUROLOGICAL: The patient is awake, alert, oriented x3, mood and affect normal. Results CBC & Chem 7: 01/06/24 05:31 01/06/24 05:31 Labs: Abnormal Lab Results - Last 24 Hours (Table) 01/06/24 01/06/24 01/06/24 Range/Units 05:31 05:31 05:31 Eosinophils # 0 L (0.04-0.35) X 10*3/uL PT 13.0 H (10.0-12.5) sec INR 1.2 H (<1.2) Glucose 146 H (70-110) mg/dL Calcium 7.8 L (8.7-10.3) mg/dL AST 133 H (13-35) U/L ALT 59 H (8-44) U/L Albumin 3.3 L (3.8-4.9) g/dL Albumin/Globulin Ratio 1.03 L (1.60-3.17) Ratio Assessment and Plan (1) COVID-19 Current Visit: Yes Status: Acute Code(s): U07.1 - COVID-19 SNOMED Code(s): 878938685 (2) Gangrenous cholecystitis Current Visit: Yes Status: Acute Code(s): K81.0 - ACUTE CHOLECYSTITIS SNOMED Code(s): 73423950 Plan: 1patient presented to hospital with a fall patient was noticed to be febrile with evidence of gangrenous cholecystitis in this patient was status post laparoscopic ostectomy and drainage of the abscess with abdominal cultures currently pending we will need to cover for the enteric gram-negative to be the likely pathogen. 2patient did tested positive for COVID-19 which may be incidental finding as she did not have significant respiratory symptoms chest x-ray did not show any acute infiltrate may consider discontinuation of dexamethasone keeping in mind acute infection with cholecystitis 3-patient is broadly covered with the Zosyn to continue while waiting for the culture to finalize We will follow on clinical condition and cultures to further adjust medication if needed Thank you for this consultation we will follow the patient along with you Dictation was produced using [employer] dictation software. please excuse any grammatical, word or spelling errors. Time with Patient: Greater than 30
[2024-01-06] MEDS: DEXAMETHASONE SOD PHOSPHATE 4 MG/ML 1 ML VIAL IVP SCH (23:55)
[2024-01-06] MEDS: ONDANSETRON 4 MG/2 ML VIAL IVP SCH (23:55)
[2024-01-07 05:36] LABS: ALT 45 U/L (4-34); AST 107 U/L (14-36); African American GFR (CKD) 83 (>60 ml/min/1.73 sqM); Albumin 2.8 g/dL (3.5-5.0); Albumin/Globulin Ratio 0.8; Alkaline Phosphatase 72 U/L (38-126); Anion Gap 7 mmol/L; Blood Urea Nitrogen 16 mg/dL (7-17); Calcium 7.9 mg/dL (8.4-10.2); Carbon Dioxide 24 mmol/L (22-30); Chloride 102 mmol/L (98-107); Globulin 3.3 g/dL; Glucose 144 mg/dL (74-99); Magnesium 2.5 mg/dL (1.6-2.3); Non-African American GFR(CKD) 72 (>60 ml/min/1.73 sqM); Sodium 133 mmol/L (137-145); Total Bilirubin 0.8 mg/dL (0.2-1.3); Total Protein 6.1 g/dL (6.3-8.2)
[2024-01-07 09:05] LABS: HCT 39.4 % (37.2-46.3); HGB 12.7 g/dL (12.0-15.0); MCH 30.4 pg (27.0-32.0); MCHC 32.2 g/dL (32.0-37.0); MCV 94.3 FL (80.0-97.0); RBC 4.18 X 10*6/uL (4.10-5.20); WBC 11.92 X 10*3/uL (4.50-10.00)
[2024-01-07 09:06] LABS: Basophils # (A) 0.01 X 10*3/uL (0.00-0.10); Basophils % (A) 0.1 %; Eosinophils # (A) 0 X 10*3/uL (0.04-0.35); Eosinophils % (A) 0 %; Lymphocytes # (A) 1.55 X 10*3/uL (0.90-5.00); Mean Platelet Volume 10.9 FL (9.5-12.2); Monocytes # (A) 0.81 X 10*3/uL (0.20-1.00); Monocytes % (A) 6.8 %; NRBC Per 100 WBC 0 X 10*3/uL (0.00-0.01); Neutrophils % (A) 79.7 %; Platelet Count 142 X 10*3/uL (140-440); RDW 13.6 % (11.5-14.5)
--- NOTE | 2024-01-07 11:29 | P.PN ---
Subjective Progress Note Date: 01/07/24 CHIEF COMPLAINT: Gangrenous cholecystitis HISTORY OF PRESENT ILLNESS: Patient is postop day #2 status post robotic laparoscopic cholecystectomy and lysis of adhesions. Patient is sitting up at bedside chair. Patient reports her pain is controlled. She denies any nausea or vomiting. Patient reports her appetite is decreased and only eating a small amount of the meals. Patient had a low-grade temp of 100 last night. White count is up slightly at 11.92. LFTs trending downwards. BALWINDER drain with 50 mL serosanguineous output through the night. Culture growing Klebsiella pneumonia PHYSICAL EXAM: VITAL SIGNS: Reviewed GENERAL: Well-developed in no acute distress. HEENT: No sclera icterus. Extraocular movements grossly intact. Moist buccal mucosa. Head is atraumatic, normocephalic. Hears conversational speech. No nasal drainage. NECK: Supple without lymphadenopathy. CHEST: Non-labored respirations and equal bilateral excursions. CARDIOVASCULAR: Palpable 2+ radial pulses. ABDOMEN: Soft. Nondistended. Incision sites clean dry and intact. BALWINDER drain is getting screw machine set up operator tool and more serosanguineous in color MUSCULOSKELETAL: No clubbing or cyanosis. NEUROLOGIC: No focal or lateralizing signs. Cranial nerves II through XII grossly intact. PSYCH: Appropriate affect. Alert and oriented to person, place and time. SKIN: Well perfused. Good skin turgor. ASSESSMENT: 1. Acute hemorrhagic gangrenous cholecystitis with cystic duct obstruction due to gallstones 2. 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 Hypertensive heart disease 4. Atrial fibrillation 5. Pulmonary hypertension 6. Obesity due to excess calories, BMI 34.2 7. COVID-positive PLAN: -Repeat CBC in a.m. -Ensure completed for protein supplement -Diflucan dosage increased per infectious disease -Continue antibiotics per infectious disease -Continue pain management -Continue low-fat diet -Continue to monitor BALWINDER drain output -Encourage patient to increase activity level -Encourage patient to use incentive spirometer -Continue to hold Pradaxa -DVT prophylaxis subcu heparin and GI prophylaxis Protonix Physician Accident Report Clerk note has been reviewed by physician. Signing provider agrees with the documented findings, assessment, and plan of care. Objective - Vital Signs Vital signs: Vital Signs Temp 98.9 F 01/07/24 08:00 Pulse 66 01/07/24 08:00 Resp 18 01/07/24 08:00 BP 131/79 01/07/24 08:00 Pulse Ox 94 L 01/07/24 08:00 FiO2 Intake & Output 01/06/24 01/07/24 01/07/24 18:59 06:59 18:59 Intake Total 722 118 Output Total 200 1600 Balance 522 -1600 118 Intake: Oral 722 118 Output: Drainage 50 Right Lower Abdomen 50 Urine 200 1550 Other: Voiding Method Toilet Indwelling Catheter Indwelling Catheter # Bowel Movements 0 - Labs CBC & Chem 7: 01/07/24 06:13 01/07/24 04:53 Labs: Abnormal Lab Results - Last 24 Hours (Table) 01/07/24 01/07/24 Range/Units 04:53 06:13 WBC 11.92 H (4.50-10.00) X 10*3/uL Immature Gran # 0.05 H (0.00-0.04) X 10*3/uL Neutrophils # 9.50 H (1.80-7.70) X 10*3/uL Eosinophils # 0 L (0.04-0.35) X 10*3/uL Sodium 133 L (137-145) mmol/L Glucose 144 H (74-99) mg/dL Calcium 7.9 L (8.4-10.2) mg/dL Magnesium 2.5 H (1.6-2.3) mg/dL AST 107 H (14-36) U/L ALT 45 H (4-34) U/L Total Protein 6.1 L (6.3-8.2) g/dL Albumin 2.8 L (3.5-5.0) g/dL Microbiology - Last 24 Hours (Table) 01/05/24 21:30 Gram Stain - Preliminary Other - Other Wound Culture - Preliminary Klebsiella pneumoniae
--- NOTE | 2024-01-07 11:53 | XR ---
EXAMINATION TYPE: XR chest 1V portable DATE OF EXAM: 01/07/2024 11:48 AM COMPARISON: Chest radiographs from 01/04/2024 TECHNIQUE: XR chest 1V portable Portable AP radiograph of the chest. CLINICAL INDICATION:Female, 73 years old with history of atelectasis; FINDINGS: Patient is rotated which limits evaluation. Lungs/Pleura: There is no evidence of pleural effusion, focal consolidation, or pneumothorax. Bibasi lar subsegmental atelectasis. Pulmonary vascularity: Unremarkable. Heart/mediastinum: Cardiomediastinal silhouette is enlarged and stable. Atherosclerotic calcificatio ns are seen in the aorta. Musculoskeletal: No acute osseous pathology. IMPRESSION: Mild cardiomegaly with bibasilar subsegmental atelectasis. [facility], , 01/07/2024 11:51 AM
--- NOTE | 2024-01-07 15:20 | P.PN ---
Subjective Progress Note Date: 01/07/24 73-year-old woman who presented to the emergency department with history of fall, 3 weeks of persistent cough and 3 weeks of right upper quadrant abdominal pain. She has a past medical history significant for atrial fibrillation, hypertension and osteoarthritis. Patient states that she was at home and felt her right leg become weak causing her to fall. States she fell towards her side and then onto her back on hardwood floor. Denies any loss of consciousness or hitting her head, however her told her she did hit her head against the door. Patient denies neck pain, back pain, numbness or weakness in her extremities, chest pain, shortness of breath or difficulty in breathing, nausea, vomiting, diarrhea, dysuria, increased urinary frequency. Per the EMS, patient's temperature was 101.6, on arrival to the emergency department was 100.2 and the patient states she took no antipyretics prior to arrival in the emergency department. Rectal temperature done in the emergency department daniel wed a temperature of 103.3. Patient states that she has had some fevers and chills for the last week, and states she had a cough for the last 3 weeks that her doctor thought was secondary to her lisinopril use so changed her medication, she states the cough is still present. Notes that the cough is nonproductive and there is no blood or sputum. She does states she has some right-sided rib/abdominal pain which she suspected was from coughing, she states her primary care without the same. However following resolution to the emergency department and patient's abdominal tenderness in the right upper quadrant and imaging studies patient was shown to have acute cholecystitis. Surgery has been consulted, patient being held n.p.o. in preparation for surgery later today (01/04). Initial lab work done in the ER showed WBCs 9.9, Hgb 12.8, Hct 38.2, PLT 202, PT 13.0, INR 1.2, PTT 27.8, sodium 134, potassium 4.0, BUN 19, creatinine 0.70, magnesium 1.5, AST 168, ALT 63, alkaline phosphatase 178 Urinalysis showed cloudy appearance, 1+ protein, 1+ ketones, small amount of blood, rare bacteria, moderate urine mucus, rare yeast COVID-19 positive 01/06/24 - Patient is post-op day 1. Patient states she is feeling well, better than she was yesterday. States that she has some abdominal pain which she rates as a 4/10, however denies nausea, vomiting, fevers, chills and she states that she is no longer coughing today. Per the operative report patient was found to have an acute gangrenous cholecystitis with hydrops of the gallbladder to the abdominal wall cutaneous fistula with abscess, severe right upper quadrant adhesions including pericholecystic adhesions requiring extensive dissections. Vital signs of this morning show blood pressure 107/70, heart rate of 69, respiratory rate 17, oxygen saturation 90% on room air. Patient was started on Zosyn, will continue the Flagyl however discontinued Rocephin. Infectious disease consulted for their recommendations regarding antibiotic course. New labs - WBCs 8.64, Hgb 12.5,Hct 30.6, PLT 181; PT 13, INR 1.2; sodium 135, potassium 4.3, BUN 16.8, creatinine 0.9, AST 133, ALT 59 01/07/24 - Patient seen at bedside today, post-op day 2. Patient states she feels good, stated she is doing better than she was yesterday. Notes mild abd ominal pain, which she considers to be more tenderness postoperatively, however denies nausea, vomiting, fevers, chills and continues to state that her coughing is no longer a problem. Patient's Thompson catheter was removed this morning due to patient having sufficient urinary output, and she does continue to have sufficient urine output following the removal of the catheter. Per surgery's recommendation, patient to continue on a low-fat diet, will continue to monitor BALWINDER drain output, encourage use of incentive spirometry as well as increase activity level as tolerated. Infectious disease consulted, per their recommendation patient will continue on Zosyn while awaiting final cultures. They will continue to follow and provide recommendations as needed. Per cardiology's recommendation, patient underwent echocardiogram which revealed ejection fraction 55-60%, showing moderate pulmonary hypertension, mild mitral regurgitation, moderate tricuspid regurgitation. Wound culture growing Kle bsiella pneumonia. Discussed with surgery team, plan to repeat CBC and CMP in the morning continuing to encourage the patient to use her incentive spirometer, encouraging increasing activity as patient is able, ensure to increase patient's protein intake. New labs - WBCs 11.92, Hgb 12.7, Hct 39.4, PLT 142; sodium 133, potassium 5.0, calcium 7.9, magnesium 2.5, AST 107, ALT 45 Imaging none today - Chest x-ray completed showed mild cardiomegaly with bibasilar subsegmental atelectasis REVIEW OF SYSTEMS: CONSTITUTIONAL: Fevers, chills, weakness HEENT: No recent visual problems or hearing problems. Denied any sore throat. CARDIOVASCULAR: No chest pain, orthopnea, PND, no palpitations, no syncope. PULMONARY: No shortness of breath, no hemoptysis. Reports cough. GASTROINTESTINAL: No diarrhea. Has had nausea and vomiting, last vomit on Friday (01/02). Reports abdominal pain. NEUROLOGICAL: No headaches, no weakness, no numbness. HEMATOLOGICAL: Denies any bleeding or petechiae. GENITOURINARY: Denies any burning micturition, frequency, or urgency. MUSCULOSKELETAL/RHEUMATOLOGICAL: Denies any joint pain, swelling, or any muscle pain. ENDOCRINE: Denies any polyuria or polydipsia. The rest of the 14-point review of systems is negative. PHYSICAL EXAMINATION: GENERAL: The patient is alert and oriented x3, not in any acute distress. Well developed, well nourished. HEENT: Pupils are round and equally reacting to light. EOMI. No scleral icterus. No conjunctival pallor. Normocephalic, atraumatic. No pharyngeal erythema. No thyromegaly. CARDIOVASCULAR: S1 and S2 present. No murmurs, rubs, or gallops. NECK: C-collar in place, no midline spinal tenderness to palpation PULMONARY: Chest is clear to auscultation, no wheezing or crackles. ABDOMEN: Soft, and nondistended. Tenderness to the right upper quadrant. MUSCULOSKELETAL: No joint swelling or deformity. EXTREMITIES: No cyanosis, clubbing, or pedal edema. NEUROLOGICAL: Gross neurological examination did not reveal any focal deficits. SKIN: No rashes. Assessment and plan # Acute cholecystitis Patient presented with right-sided abdominal pain, which she thought was secondary to coughing Patient presented with a fever, without elevated white count Gallbladder ultrasound completed which was determined to be a suboptimal study however sonographic findings are concerning for acute cholecystitis; surgery was consulted Patient given 2 g cefepime, 500 mg Flagyl each once Patient given 3 g Unasyn every 6 hours per surgery recommendation; switch to Rocephin and Flagyl Patient has tramadol every 6 hours and morphine 4 mg every 4 hours for pain control Patient made n.p.o. and preparation for surgery today (01/04) Acute gangrenous cholecystitis with hydrops of the gallbladder to the abdominal wall cutaneous fistula with abscess, severe right upper quadrant adhesions including pericholecystic adhesions requiring extensive dissections Discontinue Rocephin and Flagyl; patient started on and will continue Zosyn # Mild COVID-19 infection Patient tested positive for COVID-19 On arrival patient was saturating 97% on room air, currently saturating 94% on room air Patient has had persistent cough for 3 weeks; 3-week history of fever, uncertain origin COVID vs cholecystitis # History of atrial fibrillation Patient has a history of atrial fibrillation Noted on EKG in the emergency department atrial fibrillation with RVR Patient regularly takes Pradaxa; currently may hold - last dose taken Friday p er the patient GI prophylaxis: Protonix 40 mg daily DVT prophylaxis: Subcutaneous heparin Continue to monitor vital signs, monitor CBC, monitor CMP, continue telemetry monitoring Labs and medication were reviewed. Continue with symptomatic treatment. Dictation was produced using [employer] dictation software. please excuse any grammatical, word or spelling errors. The impression and plan of care was discussed with resident and has been dictated by Jarad Yao, as directed. Dr. Vipin MD I have performed a history and physical examination and medical decision making of this patient, discussed the same with the dictator, and agree with the dictators assessment and plan as written. Based on total visit time, I have performed more than 50% of this visit. Objective - Vital Signs Vital signs: Vital Signs Temp 97.4 F L 01/07/24 02:38 Pulse 68 01/07/24 02:38 Resp 17 01/07/24 02:38 BP 107/59 01/07/24 02:38 Pulse Ox 94 L 01/07/24 02:38 FiO2 Intake & Output 01/06/24 01/07/24 01/07/24 18:59 06:59 18:59 Intake Total 722 Output Total 200 1600 Balance 522 -1600 Intake: Oral 722 Output: Drainage 50 Right Lower Abdomen 50 Urine 200 1550 Other: Voiding Method Toilet Indwelling Catheter # Bowel Movements 0 - Labs CBC & Chem 7: 01/09/24 05:57 01/09/24 05:57 Labs: Abnormal Lab Results - Last 24 Hours (Table) 01/06/24 01/06/24 01/07/24 Range/Units 05:31 05:31 04:53 Eosinophils # 0 L (0.04-0.35) X 10*3/uL Sodium 133 L (137-145) mmol/L Glucose 146 H 144 H (70-110) mg/dL Calcium 7.8 L 7.9 L (8.7-10.3) mg/dL Magnesium 2.5 H (1.6-2.3) mg/dL AST 133 H 107 H (13-35) U/L ALT 59 H 45 H (8-44) U/L Total Protein 6.1 L (6.3-8.2) g/dL Albumin 3.3 L 2.8 L (3.8-4.9) g/dL Albumin/Globulin Ratio 1.03 L (1.60-3.17) Ratio
--- NOTE | 2024-01-07 17:31 | P.PN ---
Subjective Progress Note Date: 01/07/24 Principal diagnosis: Reason for follow-up is acute gangrenous cholecystitis Patient is a 73-year-old female with a past medical history significant for atrial fibrillation hypertension osteoarthritis presenting to the hospital after a fall the patient has been diagnosed with acute gangrenous cholecystitis status post laparoscopic cholecystectomy On today's evaluation that is 01/07/2024,the patient did have resolution of her fever and is afebrile this morning, patient is on room air not requiring supplemental oxygen and denies any shortness of breath no chest pain or cough.Patient denies having any nausea or vomiting, abdominal pain has decreased in intensity no bowel movement. Patient white count is 11.92, creatinine 0.81 abdominal cultures growing Klebsiella Objective - Vital Signs Vital signs: Vital Signs Temp 98.9 F 01/07/24 08:00 Pulse 66 01/07/24 08:00 Resp 18 01/07/24 08:00 BP 131/79 01/07/24 08:00 Pulse Ox 94 L 01/07/24 08:00 FiO2 Intake & Output 01/06/24 01/07/24 01/07/24 18:59 06:59 18:59 Intake Total 722 118 Output Total 200 1600 30 Balance 522 -1600 88 Intake: Oral 722 118 Output: Drainage 50 30 Right Lower Abdomen 50 30 Urine 200 1550 Other: Voiding Method Toilet Indwelling Catheter Indwelling Catheter # Bowel Movements 0 - Exam GENERAL DESCRIPTION: An elderly female lying in bed in no distress RESPIRATORY SYSTEM: Unlabored breathing , decreased breath sounds at bases HEART: S1 S2 regular rate and rhythm , ABDOMEN: Soft , no tenderness EXTREMITIES: No edema feet - Labs CBC & Chem 7: 01/07/24 06:13 01/07/24 04:53 Labs: Abnormal Lab Results - Last 24 Hours (Table) 01/07/24 01/07/24 Range/Units 04:53 06:13 WBC 11.92 H (4.50-10.00) X 10*3/uL Immature Gran # 0.05 H (0.00-0.04) X 10*3/uL Neutrophils # 9.50 H (1.80-7.70) X 10*3/uL Eosinophils # 0 L (0.04-0.35) X 10*3/uL Sodium 133 L (137-145) mmol/L Glucose 144 H (74-99) mg/dL Calcium 7.9 L (8.4-10.2) mg/dL Magnesium 2.5 H (1.6-2.3) mg/dL AST 107 H (14-36) U/L ALT 45 H (4-34) U/L Total Protein 6.1 L (6.3-8.2) g/dL Albumin 2.8 L (3.5-5.0) g/dL Microbiology - Last 24 Hours (Table) 01/05/24 21:30 Gram Stain - Preliminary Other - Other Wound Culture - Preliminary Klebsiella pneumoniae Assessment and Plan (1) COVID-19 Current Visit: Yes Status: Acute Code(s): U07.1 - COVID-19 SNOMED Code(s): 690392709 (2) Gangrenous cholecystitis Current Visit: Yes Status: Acute Code(s): K81.0 - ACUTE CHOLECYSTITIS SNOMED Code(s): 75275615 Plan: 1patient presented to hospital with a fall patient was noticed to be febrile with evidence of gangrenous cholecystitis in this patient was status post laparoscopic ostectomy and drainage of the abscess with abdominal cultures currently pending we will need to cover for the enteric gram-negative to be the likely pathogen. 2patient did tested positive for COVID-19 which may be incidental finding as she did not have significant respiratory symptoms chest x-ray did not show any acute infiltrate may consider discontinuation of dexamethasone keeping in mind acute infection with cholecystitis 3-patient abdominal cultures currently growing Klebsiella with sensitivities pending we will continue with Zosyn while waiting for the culture to finalize Dictation was produced using [employer] dictation software. please excuse any grammatical, word or spelling errors. Time with Patient: Less than 30
[2024-01-08 11:12] LABS: Basophils # (A) 0.02 X 10*3/uL (0.00-0.10); Basophils % (A) 0.2 %; Eosinophils # (A) 0 X 10*3/uL (0.04-0.35); Eosinophils % (A) 0 %; HCT 36.6 % (37.2-46.3); Lymphocytes # (A) 1.46 X 10*3/uL (0.90-5.00); Lymphocytes % (A) 11.6 %; MCH 30.7 pg (27.0-32.0); MCHC 32.8 g/dL (32.0-37.0); MCV 93.6 FL (80.0-97.0); Mean Platelet Volume 10.7 FL (9.5-12.2); Monocytes # (A) 0.68 X 10*3/uL (0.20-1.00); Monocytes % (A) 5.4 %; NRBC Per 100 WBC 0 X 10*3/uL (0.00-0.01); Neutrophils # (A) 10.37 X 10*3/uL (1.80-7.70); Neutrophils % (A) 82.2 %; Platelet Count 170 X 10*3/uL (140-440); RBC 3.91 X 10*6/uL (4.10-5.20); RDW 13.4 % (11.5-14.5); WBC 12.61 X 10*3/uL (4.50-10.00)
[2024-01-08 11:44] LABS: BUN/Creat Ratio 25.29 Ratio (12.00-20.00); Blood Urea Nitrogen 17.7 mg/dL (9.0-27.0); Carbon Dioxide 23.9 mmol/L (21.6-31.8); Chloride 103 mmol/L (96-109); Glucose 176 mg/dL (70-110); Potassium 4.1 mmol/L (3.5-5.5); Sodium 137 mmol/L (135-145)
[2024-01-08 11:45] LABS: ALT 31 U/L (8-44); AST 55 U/L (13-35); Albumin 2.9 g/dL (3.8-4.9); Alkaline Phosphatase 71 U/L (41-126); Calcium 8.1 mg/dL (8.7-10.3); Globulin 2.9 g/dL (1.6-3.3); Total Bilirubin 0.3 mg/dL (0.3-1.2); Total Protein 5.8 g/dL (6.2-8.2)
--- NOTE | 2024-01-08 12:13 | P.PN ---
Subjective Progress Note Date: 01/08/24 CHIEF COMPLAINT: Gangrenous cholecystitis HISTORY OF PRESENT ILLNESS: Patient is postop day #3 status post robotic laparoscopic cholecystectomy and lysis of adhesions. Patient is lying in bed comfortably. She is having flatus. Denies any nausea or vomiting. She reports that her appetite is increasing. Afebrile. White count did go up from 11-12. LFTs trending down. culture growing Klebsiella pneumonia and E. coli. BALWINDER drain 20 mL serosanguineous output PHYSICAL EXAM: VITAL SIGNS: Reviewed GENERAL: Well-developed in no acute distress. HEENT: No sclera icterus. Extraocular movements grossly intact. Moist buccal mucosa. Head is atraumatic, normocephalic. Hears conversational speech. No nasal drainage. NECK: Supple without lymphadenopathy. CHEST: Non-labored respirations and equal bilateral excursions. CARDIOVASCULAR: Palpable 2+ radial pulses. ABDOMEN: Soft. Nondistended. Incision sites clean dry and intact. BALWINDER drain serosanguineous MUSCULOSKELETAL: No clubbing or cyanosis. NEUROLOGIC: No focal or lateralizing signs. Cranial nerves II through XII grossly intact. PSYCH: Appropriate affect. Alert and oriented to person, place and time. SKIN: Well perfused. Good skin turgor. ASSESSMENT: 1. Acute hemorrhagic gangrenous cholecystitis with cystic duct obstruction due to gallstones 2. 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 Hypertensive heart disease 4. Atrial fibrillation 5. Pulmonary hypertension 6. Obesity due to excess calories, BMI 34.2 7. COVID-positive PLAN: -Repeat CBC in a.m. -Continue antibiotics per infectious disease -Continue pain management -Continue low-fat diet -Continue to monitor BALWINDER drain output -Encourage patient to increase activity level. Physical therapy to help ambulate patient -Encourage patient to use incentive spirometer -Continue to hold Pradaxa -DVT prophylaxis subcu heparin and GI prophylaxis Protonix Physician Gr[employer] 7 [employer] 8 Visiting Teacher note has been reviewed by physician. Signing provider agrees with the documented findings, assessment, and plan of care. Objective - Vital Signs Vital signs: Vital Signs Temp 97.9 F 01/08/24 06:55 Pulse 57 L 01/08/24 06:55 Resp 17 01/08/24 06:55 BP 111/70 01/08/24 06:55 Pulse Ox 94 L 01/08/24 06:55 FiO2 Intake & Output 01/07/24 01/08/24 01/08/24 18:59 06:59 18:59 Intake Total 236 118 236 Output Total 30 60 Balance 206 58 236 Intake: Oral 236 118 236 Output: Drainage 30 60 Right Lower Abdomen 30 60 Other: Voiding Method Indwelling Catheter # Voids 1 4 - Labs CBC & Chem 7: 01/08/24 06:46 01/08/24 06:46 Labs: Abnormal Lab Results - Last 24 Hours (Table) 01/08/24 Range/Units 06:46 WBC 12.61 H (4.50-10.00) X 10*3/uL RBC 3.91 L (4.10-5.20) X 10*6/uL Hct 36.6 L (37.2-46.3) % Immature Gran # 0.08 H (0.00-0.04) X 10*3/uL Neutrophils # 10.37 H (1.80-7.70) X 10*3/uL Eosinophils # 0 L (0.04-0.35) X 10*3/uL Microbiology - Last 24 Hours (Table) 01/05/24 21:30 Gram Stain - Final Other - Other Wound Culture - Final Klebsiella pneumoniae Escherichia coli
--- NOTE | 2024-01-08 15:04 | P.PN ---
Subjective Progress Note Date: 01/08/24 73-year-old woman who presented to the emergency department with history of fall, 3 weeks of persistent cough and 3 weeks of right upper quadrant abdominal pain. She has a past medical history significant for atrial fibrillation, hypertension and osteoarthritis. Patient states that she was at home and felt her right leg become weak causing her to fall. States she fell towards her side and then onto her back on hardwood floor. Denies any loss of consciousness or hitting her head, however her told her she did hit her head against the door. Patient denies neck pain, back pain, numbness or weakness in her extremities, chest pain, shortness of breath or difficulty in breathing, nausea, vomiting, diarrhea, dysuria, increased urinary frequency. Per the EMS, patient's temperature was 101.6, on arrival to the emergency department was 100.2 and the patient states she took no antipyretics prior to arrival in the emergency department. Rectal temperature done in the emergency department daniel wed a temperature of 103.3. Patient states that she has had some fevers and chills for the last week, and states she had a cough for the last 3 weeks that her doctor thought was secondary to her lisinopril use so changed her medication, she states the cough is still present. Notes that the cough is nonproductive and there is no blood or sputum. She does states she has some right-sided rib/abdominal pain which she suspected was from coughing, she states her primary care without the same. However following resolution to the emergency department and patient's abdominal tenderness in the right upper quadrant and imaging studies patient was shown to have acute cholecystitis. Surgery has been consulted, patient being held n.p.o. in preparation for surgery later today (01/04). Initial lab work done in the ER showed WBCs 9.9, Hgb 12.8, Hct 38.2, PLT 202, PT 13.0, INR 1.2, PTT 27.8, sodium 134, potassium 4.0, BUN 19, creatinine 0.70, magnesium 1.5, AST 168, ALT 63, alkaline phosphatase 178 Urinalysis showed cloudy appearance, 1+ protein, 1+ ketones, small amount of blood, rare bacteria, moderate urine mucus, rare yeast COVID-19 positive 01/06/24 - Patient is post-op day 1. Patient states she is feeling well, better than she was yesterday. States that she has some abdominal pain which she rates as a 4/10, however denies nausea, vomiting, fevers, chills and she states that she is no longer coughing today. Per the operative report patient was found to have an acute gangrenous cholecystitis with hydrops of the gallbladder to the abdominal wall cutaneous fistula with abscess, severe right upper quadrant adhesions including pericholecystic adhesions requiring extensive dissections. Vital signs of this morning show blood pressure 107/70, heart rate of 69, respiratory rate 17, oxygen saturation 90% on room air. Patient was started on Zosyn, will continue the Flagyl however discontinued Rocephin. Infectious disease consulted for their recommendations regarding antibiotic course. New labs - WBCs 8.64, Hgb 12.5,Hct 30.6, PLT 181; PT 13, INR 1.2; sodium 135, potassium 4.3, BUN 16.8, creatinine 0.9, AST 133, ALT 59 01/07/24 - Patient seen at bedside today, post-op day 2. Patient states she feels good, stated she is doing better than she was yesterday. Notes mild abd ominal pain, which she considers to be more tenderness postoperatively, however denies nausea, vomiting, fevers, chills and continues to state that her coughing is no longer a problem. Patient's Thompson catheter was removed this morning due to patient having sufficient urinary output, and she does continue to have sufficient urine output following the removal of the catheter. Per surgery's recommendation, patient to continue on a low-fat diet, will continue to monitor BALWINDER drain output, encourage use of incentive spirometry as well as increase activity level as tolerated. Infectious disease consulted, per their recommendation patient will continue on Zosyn while awaiting final cultures. They will continue to follow and provide recommendations as needed. Per cardiology's recommendation, patient underwent echocardiogram which revealed ejection fraction 55-60%, showing moderate pulmonary hypertension, mild mitral regurgitation, moderate tricuspid regurgitation. Wound culture growing Kle bsiella pneumonia. Discussed with surgery team, plan to repeat CBC and CMP in the morning continuing to encourage the patient to use her incentive spirometer, encouraging increasing activity as patient is able, ensure to increase patient's protein intake. New labs - WBCs 11.92, Hgb 12.7, Hct 39.4, PLT 142; sodium 133, potassium 5.0, calcium 7.9, magnesium 2.5, AST 107, ALT 45 Imaging done today - Chest x-ray completed showed mild cardiomegaly with bibasilar subsegmental atelectasis 01/08/24 - Patient seen at bedside today. She is now postop day 3 and states she continues to feel much better every day. She states that she has had continuing improvement of her mild postsurgical abdominal pain. Patient did note a fever, waking up sweating this morning at 5 AM, and some chills, however the patient was able to fall back asleep and woke up feeling fine. Patient denies nausea or vomiting. Since having her Thompson catheter removed, patient has no difficulty urinating. Patient will continue on Zosyn, per infectious disease recommendation this is acceptable all awaiting final culture growth. Labs yesterday (01/06) showed a slight elevation in WBCs at 11.92, while the LFTs down trended from 01/05. Labs from today showed WBCs . As result of patient's repeat chest x-ray done yesterday (01/06) showing bibasilar subsegmental atelectasis, patient will continue to be encouraged to utilize the incentive spirometer more often and physical therapy will work with the patient to ambulate through the halls as able. Labs show continued downtrend of LFTs, however another slight increase in WBCs. New labs - WBCs 12.6 on, Hgb 12.0, Hct 36.6, PLT 170; sodium 137, potassium 4.1, BUN 17.7, creatinine 0.7, AST 55, ALT 31 Preliminary anaerobic culture showed no growth Preliminary body fluid Gram stain showed no polymorphonuclear leukocytes and organisms seen Wound culture and Gram stain both final - showed Klebsiella pneumonia headache E. coli with susceptibility great available, Klebsiella pneumonia showing resistant ampicillin full susceptibility otherwise REVIEW OF SYSTEMS: CONSTITUTIONAL: Fevers, chills, weakness HEENT: No recent visual problems or hearing problems. Denied any sore throat. CARDIOVASCULAR: No chest pain, orthopnea, PND, no palpitations, no syncope. PULMONARY: No shortness of breath, no hemoptysis. Reports cough has not been bothering her the past 2 days. GASTROINTESTINAL: No diarrhea. Denies nausea and vomiting. Reports abdominal pain has improved since surgery, very mild postsurgical tenderness. NEUROLOGICAL: No headaches, no weakness, no numbness. HEMATOLOGICAL: Denies any bleeding or petechiae. GENITOURINARY: Denies any burning micturition, frequency, or urgency. MUSCULOSKELETAL/RHEUMATOLOGICAL: Denies any joint pain, swelling, or any muscle pain. ENDOCRINE: Denies any polyuria or polydipsia. The rest of the 14-point review of systems is negative. PHYSICAL EXAMINATION: GENERAL: The patient is alert and oriented x3, not in any acute distress. Well developed, well nourished. HEENT: Pupils are round and equally reacting to light. EOMI. No scleral icterus. No conjunctival pallor. Normocephalic, atraumatic. No pharyngeal erythema. No thyromegaly. CARDIOVASCULAR: S1 and S2 present. No murmurs, rubs, or gallops. NECK: No midline spinal tenderness to palpation PULMONARY: Chest is clear to auscultation, no wheezing or crackles. ABDOMEN: Soft, and nondistended. Mild postsurgical tenderness. MUSCULOSKELETAL: No joint swelling or deformity. EXTREMITIES: No cyanosis, clubbing, or pedal edema. NEUROLOGICAL: Gross neurological examination did not reveal any focal deficits. SKIN: No rashes. Assessment and plan # Acute cholecystitis Patient presented with right-sided abdominal pain, which she thought was secondary to coughing Patient presented with a fever, without elevated white count Gallbladder ultrasound completed which was determined to be a suboptimal study however sonographic findings are concerning for acute cholecystitis; surgery was consulted Patient given 2 g cefepime, 500 mg Flagyl each once Patient given 3 g Unasyn every 6 hours per surgery recommendation; switch to Rocephin and Flagyl Patient has tramadol every 6 hours and morphine 4 mg every 4 hours for pain c ontrol Patient made n.p.o. and preparation for surgery today (01/04) Acute gangrenous cholecystitis with hydrops of the gallbladder to the abdominal wall cutaneous fistula with abscess, severe right upper quadrant adhesions including pericholecystic adhesions requiring extensive dissections Discontinue Rocephin and Flagyl; patient started on and will continue Zosyn Preliminary wound culture growing Klebsiella pneumonia, per IDs recommendation continue with Zosyn while awaiting final culture Patient encouraged to use incentive spirometer more frequently, chest x-ray completed on 01/06 showed subsegmental bibasilar atelectasis; overnight saturating 93% on room air Final wound culture shows growth of Klebsiella pneumonia and E. coli; pending further recommendation from infectious disease # Mild COVID-19 infection Patient tested positive for COVID-19 On arrival patient was saturating 97% on room air, currently saturating 94% on room air Patient has had persistent cough for 3 weeks; 3-week history of fever, uncertain origin COVID vs cholecystitis # History of atrial fibrillation Patient has a history of atrial fibrillation Noted on EKG in the emergency department atrial fibrillation with RVR Patient regularly takes Pradaxa; currently august - last dose taken Friday per the patient GI prophylaxis: Protonix 40 mg daily DVT prophylaxis: Subcutaneous heparin Continue to monitor vital signs, monitor CBC, monitor CMP, continue telemetry monitoring Labs and medication were reviewed. Continue with symptomatic treatment. Dictation was produced using [employer] dictation software. please excuse any grammatical, word or spelling errors. Objective - Vital Signs Vital signs: Vital Signs Temp 97.9 F 01/08/24 00:51 Pulse 73 01/08/24 00:51 Resp 16 01/08/24 00:51 BP 164/79 01/08/24 00:51 Pulse Ox 93 L 01/08/24 00:51 FiO2 Intake & Output 01/07/24 01/08/24 01/08/24 18:59 06:59 18:59 Intake Total 236 118 Output Total 30 60 Balance 206 58 Intake: Oral 236 118 Output: Drainage 30 60 Right Lower Abdomen 30 60 Other: Voiding Method Indwelling Catheter # Voids 1 4 - Labs CBC & Chem 7: 01/08/24 06:46 01/08/24 06:46 Labs: Abnormal Lab Results - Last 24 Hours (Table) 01/07/24 Range/Units 06:13 WBC 11.92 H (4.50-10.00) X 10*3/uL Immature Gran # 0.05 H (0.00-0.04) X 10*3/uL Neutrophils # 9.50 H (1.80-7.70) X 10*3/uL Eosinophils # 0 L (0.04-0.35) X 10*3/uL Microbiology - Last 24 Hours (Table) 01/05/24 21:30 Gram Stain - Preliminary Other - Other Wound Culture - Preliminary Klebsiella pneumoniae
--- NOTE | 2024-01-08 22:44 | P.PN ---
Subjective Progress Note Date: 01/08/24 Principal diagnosis: Reason for follow-up is acute gangrenous cholecystitis Patient is a 73-year-old female with a past medical history significant for atrial fibrillation hypertension osteoarthritis presenting to the hospital after a fall the patient has been diagnosed with acute gangrenous cholecystitis status post laparoscopic cholecystectomy On today's evaluation that is 01/08/2024, the patient continues to be afebrile, the patient is on room air and breathing comfortably, the Pt denies having any chest pain or cough, the patient denies having any nausea vomiting abdominal pain has decreased intensity no diarrhea. Patient white count is m.4.61, creatinine 0.7 local culture growing Klebsiella and E. coli sensitive pathogen Objective - Vital Signs Vital signs: Vital Signs Temp 97.9 F 01/08/24 06:55 Pulse 57 L 01/08/24 06:55 Resp 17 01/08/24 06:55 BP 111/70 01/08/24 06:55 Pulse Ox 94 L 01/08/24 06:55 FiO2 Intake & Output 01/07/24 01/08/24 01/08/24 18:59 06:59 18:59 Intake Total 236 118 536 Output Total 30 60 Balance 206 58 536 Intake: Oral 236 118 536 Output: Drainage 30 60 Right Lower Abdomen 30 60 Other: Voiding Method Indwelling Catheter # Voids 1 4 2 # Bowel Movements 2 - Exam GENERAL DESCRIPTION: An elderly female lying in bed in no distress RESPIRATORY SYSTEM: Unlabored breathing , decreased breath sounds at bases HEART: S1 S2 regular rate and rhythm , ABDOMEN: Soft , no tenderness EXTREMITIES: No edema feet - Labs CBC & Chem 7: 01/08/24 06:46 01/08/24 06:46 Labs: Abnormal Lab Results - Last 24 Hours (Table) 01/08/24 01/08/24 Range/Units 06:46 06:46 WBC 12.61 H (4.50-10.00) X 10*3/uL RBC 3.91 L (4.10-5.20) X 10*6/uL Hct 36.6 L (37.2-46.3) % Immature Gran # 0.08 H (0.00-0.04) X 10*3/uL Neutrophils # 10.37 H (1.80-7.70) X 10*3/uL Eosinophils # 0 L (0.04-0.35) X 10*3/uL BUN/Creatinine Ratio 25.29 H (12.00-20.00) Ratio Glucose 176 H (70-110) mg/dL Calcium 8.1 L (8.7-10.3) mg/dL AST 55 H (13-35) U/L Total Protein 5.8 L (6.2-8.2) g/dL Albumin 2.9 L (3.8-4.9) g/dL Albumin/Globulin Ratio 1.00 L (1.60-3.17) Ratio Microbiology - Last 24 Hours (Table) 01/05/24 21:30 Gram Stain - Final Other - Other Wound Culture - Final Klebsiella pneumoniae Escherichia coli Assessment and Plan (1) COVID-19 Current Visit: Yes Status: Acute Code(s): U07.1 - COVID-19 SNOMED Code(s): 066276044 (2) Gangrenous cholecystitis Current Visit: Yes Status: Acute Code(s): K81.0 - ACUTE CHOLECYSTITIS SNOMED Code(s): 46629980 Plan: 1patient presented to hospital with a fall patient was noticed to be febrile with evidence of gangrenous cholecystitis in this patient was status post laparoscopic ostectomy and drainage of the abscess with abdominal cultures currently pending we will need to cover for the enteric gram-negative to be the likely pathogen. 2patient did tested positive for COVID-19 which may be incidental finding as she did not have significant respiratory symptoms chest x-ray did not show any acute infiltrate may consider discontinuation of dexamethasone keeping in mind acute infection with cholecystitis 3-patient abdominal cultures currently growing Klebsiella and E. coli which are sensitive pathogen for the patient is covered with Zosyn we will be able to finish therapy with oral antibiotics 4worsening white count more likely related to steroids as no evidence of any worsening infection dexamethasone discontinued today we will repeat a CBC with a.m. lab Dictation was produced using [employer] dictation software. please excuse any grammatical, word or spelling errors. Time with Patient: Less than 30
[2024-01-09 02:21] VITALS: RESP 16
[2024-01-09] MEDS: PANTOPRAZOLE 40 MG TABLET PO SCH (05:36)
[2024-01-09 11:05] LABS: Basophils # (A) 0.03 X 10*3/uL (0.00-0.10); Basophils % (A) 0.2 %; Eosinophils # (A) 0.01 X 10*3/uL (0.04-0.35); Eosinophils % (A) 0.1 %; HCT 37.2 % (37.2-46.3); HGB 11.9 g/dL (12.0-15.0); Lymphocytes # (A) 1.66 X 10*3/uL (0.90-5.00); Lymphocytes % (A) 12.8 %; MCH 30.5 pg (27.0-32.0); MCV 95.4 FL (80.0-97.0); Mean Platelet Volume 11.1 FL (9.5-12.2); Monocytes # (A) 0.79 X 10*3/uL (0.20-1.00); Monocytes % (A) 6.1 %; NRBC Per 100 WBC 0 X 10*3/uL (0.00-0.01); Neutrophils # (A) 10.45 X 10*3/uL (1.80-7.70); Neutrophils % (A) 80.3 %; Platelet Count 183 X 10*3/uL (140-440); RDW 13.5 % (11.5-14.5)
[2024-01-09 11:06] LABS: ALT 30 U/L (8-44); AST 42 U/L (13-35); Albumin 2.9 g/dL (3.8-4.9); Alkaline Phosphatase 70 U/L (41-126); BUN/Creat Ratio 25.88 Ratio (12.00-20.00); Blood Urea Nitrogen 20.7 mg/dL (9.0-27.0); Calcium 8.2 mg/dL (8.7-10.3); Carbon Dioxide 23.8 mmol/L (21.6-31.8); Chloride 104 mmol/L (96-109); Globulin 2.9 g/dL (1.6-3.3); Glucose 145 mg/dL (70-110); Potassium 4.5 mmol/L (3.5-5.5); Sodium 138 mmol/L (135-145); Total Bilirubin 0.3 mg/dL (0.3-1.2); Total Protein 5.8 g/dL (6.2-8.2)
--- NOTE | 2024-01-09 13:42 | P.PN ---
Subjective Progress Note Date: 01/09/24 CHIEF COMPLAINT: Gangrenous cholecystitis HISTORY OF PRESENT ILLNESS: Patient is postop day #4 status post Robotic laparoscopic cholecystectomy and lysis of adhesions. Patient reports her pain is controlled. She did have loose stools yesterday. Denies any nausea or vomiting. She did report leaking around the BALWINDER drain after she had showered. Afebrile. WBC is up from 12.6-13 hemoglobin 11.9. culture growing Klebsiella pneumonia and E. coli. BALWINDER drain 20 mL serosanguineous output PHYSICAL EXAM: VITAL SIGNS: Reviewed GENERAL: Well-developed in no acute distress. HEENT: No sclera icterus. Extraocular movements grossly intact. Moist buccal mucosa. Head is atraumatic, normocephalic. Hears conversational speech. No nasal drainage. NECK: Supple without lymphadenopathy. CHEST: Non-labored respirations and equal bilateral excursions. CARDIOVASCULAR: Palpable 2+ radial pulses. ABDOMEN: Soft. Nondistended. Incision sites clean dry and intact. BALWINDER drain serosanguineous MUSCULOSKELETAL: No clubbing or cyanosis. NEUROLOGIC: No focal or lateralizing signs. Cranial nerves II through XII grossly intact. PSYCH: Appropriate affect. Alert and oriented to person, place and time. SKIN: Well perfused. Good skin turgor. ASSESSMENT: 1. Acute hemorrhagic gangrenous cholecystitis with cystic duct obstruction due to gallstones 2. 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 Hypertensive heart disease 4. Atrial fibrillation 5. Pulmonary hypertension 6. Obesity due to excess calories, BMI 34.2 7. COVID-positive PLAN: -Patient can be discharged from surgical standpoint when cleared by infectious disease -Discharge antibiotic regimen per infectious disease -Continue pain management -Continue low-fat diet -Continue to increase activity level -DVT prophylaxis subcu heparin and GI prophylaxis Protonix Physician [employer] note has been reviewed by physician. Signing provider agrees with the documented findings, assessment, and plan of care. Objective - Vital Signs Vital signs: Vital Signs Temp 97.6 F 01/09/24 07:25 Pulse 46 L 01/09/24 07:25 Resp 16 01/09/24 07:25 BP 136/78 01/09/24 07:25 Pulse Ox 97 01/09/24 07:25 FiO2 Intake & Output 01/08/24 01/09/24 01/09/24 18:59 06:59 18:59 Intake Total 654 100 Output Total 20 20 Balance 634 -20 100 Intake: Oral 654 100 Output: Drainage 20 20 Right Lower Abdomen 20 20 Other: # Voids 2 2 # Bowel Movements 2 - Labs CBC & Chem 7: 01/09/24 05:57 01/09/24 05:57 Labs: Abnormal Lab Results - Last 24 Hours (Table) 01/09/24 01/09/24 Range/Units 05:57 05:57 WBC 13.00 H (4.50-10.00) X 10*3/uL RBC 3.90 L (4.10-5.20) X 10*6/uL Hgb 11.9 L (12.0-15.0) g/dL Immature Gran # 0.06 H (0.00-0.04) X 10*3/uL Neutrophils # 10.45 H (1.80-7.70) X 10*3/uL Eosinophils # 0.01 L (0.04-0.35) X 10*3/uL BUN/Creatinine Ratio 25.88 H (12.00-20.00) Ratio Glucose 145 H (70-110) mg/dL Calcium 8.2 L (8.7-10.3) mg/dL AST 42 H (13-35) U/L Total Protein 5.8 L (6.2-8.2) g/dL Albumin 2.9 L (3.8-4.9) g/dL Albumin/Globulin Ratio 1.00 L (1.60-3.17) Ratio Microbiology - Last 24 Hours (Table) 01/07/24 14:45 Gram Stain - Preliminary [facility] Body Fluid Culture - Preliminary 01/05/24 21:30 Anaerobic Culture - Preliminary Other - Other
--- NOTE | 2024-01-09 13:53 | P.DS ---
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 Do you want consulting provider notified?: Yes, Notify in am 01/06/24 11:50 Consult Physician Routine Consulting Provider: Elbert Good Consult Reason/Comments: Gangrenous Cholecystectomy w/abdominal wall abcess Do you want consulting provider notified?: Yes Primary care physician: Boris Menchaca [facility] Course: Discharge diagnoses; # Acute gangrenous cholecystitis # Mild COVID-19 infection # History of atrial fibrillation Hospital course; 73-year-old woman who presented to the emergency department with history of fall, 3 weeks of persistent cough and 3 weeks of right upper quadrant abdominal pain. She has a past medical history significant for atrial fibrillation, hypertension and osteoarthritis. Patient states that she was at home and felt her right leg become weak causing her to fall. States she fell towards her side and then onto her back on hardwood floor. Denies any loss of consciousness or hitting her head, however her told her she did hit her head against the door. Patient denies neck pain, back pain, numbness or weakness in her extremities, chest pain, shortness of breath or difficulty in breathing, nausea, vomiting, diarrhea, dysuria, increased urinary frequency. Per the EMS, patient's temperature was 101.6, on arrival to the emergency department was 100.2 and the patient states she took no antipyretics prior to arrival in the emergency department. Rectal temperature done in the emergency department showed a temperature of 103.3. Patient states that she has had some fevers and chills for the last week, and states she had a cough for the last 3 weeks that her doctor thought was secondary to her lisinopril use so changed her medi cation, she states the cough is still present. Notes that the cough is nonproductive and there is no blood or sputum. She does states she has some right-sided rib/abdominal pain which she suspected was from coughing, she states her primary care without the same. However following resolution to the emergency department and patient's abdominal tenderness in the right upper quadrant and imaging studies patient was shown to have acute cholecystitis. Surgery has been consulted, patient being held n.p.o. in preparation for surgery later today (01/04). Initial lab work done in the ER showed WBCs 9.9, Hgb 12.8, Hct 38.2, PLT 202, PT 13.0, INR 1.2, PTT 27.8, sodium 134, potassium 4.0, BUN 19, creatinine 0.70, magnesium 1.5, AST 168, ALT 63, alkaline phosphatase 178 Urinalysis showed cloudy appearance, 1+ protein, 1+ ketones, small amount of blood, rare bacteria, moderate urine mucus, rare yeast COVID-19 positive 01/06/24 - Patient is post-op day 1. Patient states she is feeling well, better than she was yesterday. States that she has some abdominal pain which she rates as a 4/10, however denies nausea, vomiting, fevers, chills and she states that she is no longer coughing today. Per the operative report patient was found to have an acute gangrenous cholecystitis with hydrops of the gallbladder to the abdominal wall cutaneous fistula with abscess, severe right upper quadrant adh esions including pericholecystic adhesions requiring extensive dissections. Vital signs of this morning show blood pressure 107/70, heart rate of 69, respiratory rate 17, oxygen saturation 90% on room air. Patient was started on Zosyn, will continue the Flagyl however discontinued Rocephin. Infectious disease consulted for their recommendations regarding antibiotic course. New labs - WBCs 8.64, Hgb 12.5,Hct 30.6, PLT 181; PT 13, INR 1.2; sodium 135, potassium 4.3, BUN 16.8, creatinine 0.9, AST 133, ALT 59 01/07/24 - Patient seen at bedside today, post-op day 2. Patient states she feels good, stated she is doing better than she was yesterday. Notes mild abdominal pain, which she considers to be more tenderness postoperatively, however denies nausea, vomiting, fevers, chills and continues to state that her coughing is no longer a problem. Patient's Thompson catheter was removed this morning due to patient having sufficient urinary output, and she does continue to have sufficient urine output following the removal of the catheter. Per surgery's recommendation, patient to continue on a low-fat diet, will continue to monitor BALWINDER drain output, encourage use of incentive spirometry as well as increase activity level as tolerated. Infectious disease consulted, per their recommendation patient will continue on Zosyn while awaiting final cultures. They will continue to follow and provide recommendations as needed. Per cardiology's recommendation, patient underwent echocardiogram which revealed ejection fraction 55-60%, showing moderate pulmonary hypertension, mild mitral regurgitation, moderate tricuspid regurgitation. Wound culture growing Klebsiella pneumonia. Discussed with surgery team, plan to repeat CBC and CMP in the morning continuing to encourage the patient to use her incentive spirometer, encouraging increasing activity as patient is able, ensure to increase patient's protein intake. New labs - WBCs 11.92, Hgb 12.7, Hct 39.4, PLT 142; sodium 133, potassium 5.0, calcium 7.9, magnesium 2.5, AST 107, ALT 45 Imaging done today - Chest x-ray completed showed mild cardiomegaly with bibasilar subsegmental atelectasis 01/08/24 - Patient seen at bedside today. She is now postop day 3 and states she continues to feel much better every day. She states that she has had continuing improvement of her mild postsurgical abdominal pain. Patient did note a fever, waking up sweating this morning at 5 AM, and some chills, however the patient was able to fall back asleep and woke up feeling fine. Patient denies nausea or vomiting. Since having her Thompson catheter removed, patient has no difficulty urinating. Patient will continue on Zosyn, per infectious disease recommendation this is acceptable all awaiting final culture growth. Labs yesterday (01/06) showed a slight elevation in WBCs at 11.92, while the LFTs down trended from 01/05. Labs from today showed WBCs . As result of patient's repeat chest x-ray done yesterday (01/06) showing bibasilar subsegmental atelectasis, patient will continue to be encouraged to utilize the incentive spirometer more often and physical therapy will work with the patient to ambulate through the halls as able. Labs show continued downtrend of LFTs, however another slight increase in WBCs. New labs - WBCs 12.6 on, Hgb 12.0, Hct 36.6, PLT 170; sodium 137, potassium 4.1, BUN 17.7, creatinine 0.7, AST 55, ALT 31 Preliminary anaerobic culture showed no growth Preliminary body fluid Gram stain showed no polymorphonuclear leukocytes and organisms seen Wound culture and Gram stain both final - showed Klebsiella pneumonia headache E. coli with susceptibility great available, Klebsiella pneumonia showing resistant ampicillin full susceptibility otherwise 01/09/24 - Patient seen at bedside today. She is now postop day 4 and states she is feeling better, as she has every day since surgery. Per infectious disease recommendation Decadron discontinued yesterday as the increasing WBCs seem to be secondary to use of the steroid, as the patient's infection seems to be getting better clinically. Additionally, per infectious disease patient to be discharged on ciprofloxacin 500 mg twice daily and Flagyl 500 mg 3 times daily for 10 days. Surgery and infectious disease have both given the okay for the patient to be discharged. PHYSICAL EXAMINATION: GENERAL: The patient is alert and oriented x3, not in any acute distress. Well developed, well nourished. HEENT: Pupils are round and equally reacting to light. EOMI. No scleral icterus. No conjunctival pallor. Normocephalic, atraumatic. No pharyngeal erythema. No thyromegaly. CARDIOVASCULAR: S1 and S2 present. No murmurs, rubs, or gallops. PULMONARY: Chest is clear to auscultation, no wheezing or crackles. ABDOMEN: Soft, nontender, nondistended, normoactive bowel sounds. No palpable organomegaly. MUSCULOSKELETAL: No joint swelling or deformity. EXTREMITIES: No cyanosis, clubbing, or pedal edema. NEUROLOGICAL: Gross neurological examination did not reveal any focal deficits. SKIN: No rashes. Dictation was produced using [employer]ingle[employer] software. please excuse any grammatical, word or spelling errors. Plan - Discharge Summary New Discharge Prescriptions: New Acetaminophen Tab [Tylenol] 1,000 mg PO Q6HR PRN #30 tablet PRN Reason: Pain Ciprofloxacin [Cipro Susp] 500 mg PO BID #20 ml metroNIDAZOLE [Flagyl] 500 mg PO TID #30 tab Continue Loratadine [Claritin] 10 mg PO DAILY Dabigatran Etexilate Mesylate [Dabigatran Etexilate] 150 mg PO BID #0 hydroCHLOROthiazide [Hydrodiuril] 12.5 mg PO DAILY Metoprolol Succinate (ER) [Toprol XL] 25 mg PO DAILY Irbesartan 150 mg PO DAILY Discharge Medication List Metoprolol Succinate (ER) [Toprol XL] 25 mg PO DAILY 03/13/22 [History] hydroCHLOROthiazide [Hydrodiuril] 12.5 mg PO DAILY 03/13/22 [History] Irbesartan 150 mg PO DAILY 01/05/24 [History] Loratadine [Claritin] 10 mg PO DAILY 01/05/24 [History] Acetaminophen Tab [Tylenol] 1,000 mg PO Q6HR PRN #30 tablet 01/09/24 [Rx] Ciprofloxacin [Cipro Susp] 500 mg PO BID #20 ml 01/09/24 [Rx] Dabigatran Etexilate Mesylate [Dabigatran Etexilate] 150 mg PO BID #0 01/09/24 [Rx] metroNIDAZOLE [Flagyl] 500 mg PO TID #30 tab 01/09/24 [Rx] Follow up Appointment(s)/Referral(s): Mona Wilkes MD [STAFF PHYSICIAN] - 01/13/24 [facility], [NON-STAFF] - As Needed Boris Menchaca DO [Primary Care Provider] - 1-2 days Cameron Lu MD [STAFF PHYSICIAN] - 01/12/24 12:00 pm
[2024-01-09 14:18] VITALS: BP 127/79; PULSE 45; TEMP 97.9
--- NOTE | 2024-01-09 14:54 | P.PN ---
Subjective Progress Note Date: 01/09/24 Principal diagnosis: Reason for follow-up is acute gangrenous cholecystitis Patient is a 73-year-old female with a past medical history significant for atrial fibrillation hypertension osteoarthritis presenting to the hospital after a fall the patient has been diagnosed with acute gangrenous cholecystitis status post laparoscopic cholecystectomy On today's evaluation that is 01/09/2024, Patient is afebrile patient is currently on room air and denies having any shortness of breath, the patient denies any chest pain did have a mild r cough, the patient denies any nausea vomiting did not have any abdominal pain and no diarrhea, mention feeling better. Patient white count is 13,000, creatinine is 0.8 Objective - Vital Signs Vital signs: Vital Signs Temp 97.6 F 01/09/24 07:25 Pulse 46 L 01/09/24 07:25 Resp 16 01/09/24 07:25 BP 136/78 01/09/24 07:25 Pulse Ox 97 01/09/24 07:25 FiO2 Intake & Output 01/08/24 01/09/24 01/09/24 18:59 06:59 18:59 Intake Total 654 100 Output Total 20 20 Balance 634 -20 100 Intake: Oral 654 100 Output: Drainage 20 20 Right Lower Abdomen 20 20 Other: # Voids 2 2 # Bowel Movements 2 - Exam GENERAL DESCRIPTION: An elderly female lying in bed in no distress RESPIRATORY SYSTEM: Unlabored breathing , decreased breath sounds at bases HEART: S1 S2 regular rate and rhythm , ABDOMEN: Soft , no tenderness EXTREMITIES: No edema feet - Labs CBC & Chem 7: 01/09/24 05:57 01/09/24 05:57 Labs: Abnormal Lab Results - Last 24 Hours (Table) 01/09/24 01/09/24 Range/Units 05:57 05:57 WBC 13.00 H (4.50-10.00) X 10*3/uL RBC 3.90 L (4.10-5.20) X 10*6/uL Hgb 11.9 L (12.0-15.0) g/dL Immature Gran # 0.06 H (0.00-0.04) X 10*3/uL Neutrophils # 10.45 H (1.80-7.70) X 10*3/uL Eosinophils # 0.01 L (0.04-0.35) X 10*3/uL BUN/Creatinine Ratio 25.88 H (12.00-20.00) Ratio Glucose 145 H (70-110) mg/dL Calcium 8.2 L (8.7-10.3) mg/dL AST 42 H (13-35) U/L Total Protein 5.8 L (6.2-8.2) g/dL Albumin 2.9 L (3.8-4.9) g/dL Albumin/Globulin Ratio 1.00 L (1.60-3.17) Ratio Microbiology - Last 24 Hours (Table) 01/07/24 14:45 Gram Stain - Preliminary John-Angulo Body Fluid Culture - Preliminary 01/05/24 21:30 Anaerobic Culture - Preliminary Other - Other 01/05/24 21:30 Gram Stain - Final Other - Other Wound Culture - Final Klebsiella pneumoniae Escherichia coli Assessment and Plan (1) COVID-19 Current Visit: Yes Status: Acute Code(s): U07.1 - COVID-19 SNOMED Code(s): 374825281 (2) Gangrenous cholecystitis Current Visit: Yes Status: Acute Code(s): K81.0 - ACUTE CHOLECYSTITIS SNOMED Code(s): 39738876 Plan: 1patient presented to hospital with a fall patient was noticed to be febrile with evidence of gangrenous cholecystitis in this patient was status post laparoscopic ostectomy and drainage of the abscess with abdominal cultures currently pending we will need to cover for the enteric gram-negative to be the likely pathogen. 2patient did tested positive for COVID-19 which may be incidental finding as she did not have significant respiratory symptoms chest x-ray did not show any acute infiltrate may consider discontinuation of dexamethasone keeping in mind acute infection with cholecystitis 3-patient abdominal cultures currently growing Klebsiella and E. coli which are sensitive pathogen for the patient is covered with Zosyn with a plan to finish therapy with oral Cipro and Flagyl x 10 days on discharge discussed with the resident physician working on discharge Dictation was produced using [employer] dictation software. please excuse any gramma tical, word or spelling errors. Time with Patient: Less than 30
== END 2024-01-09 17:32 | disposition home or self-care (01) | DRG 417 ==
LOC: EC 21:34 → 6NMEDSUR 01-05 02:06
PROVIDERS: ADMIT Hospitalist; ATTEND Hospitalist
PROC: 8E0W4CZ Robotic Assisted Procedure of Trunk Region, Percutaneous Endoscopic Approach (ICD-10-PCS; principal; 2024-01-05 14:25)
PROC: 0FN44ZZ Release Gallbladder, Percutaneous Endoscopic Approach (ICD-10-PCS; principal; 2024-01-05 14:25)
PROC: 0W9F40Z Drainage of Abdominal Wall with Drainage Device, Percutaneous Endoscopic Approach (ICD-10-PCS; principal; 2024-01-05 14:25)
PROC: 0FT44ZZ Resection of Gallbladder, Percutaneous Endoscopic Approach (ICD-10-PCS; principal; 2024-01-05 14:25)
DX: K80.13 Calculus of gallbladder with acute and chronic cholecystitis with obstruction (principal); U07.1 COVID-19; K82.1 Hydrops of gallbladder; I48.19 Other persistent atrial fibrillation; L02.211 Cutaneous abscess of abdominal wall; Z16.11 Resistance to penicillins; I27.20 Pulmonary hypertension, unspecified; I11.9 Hypertensive heart disease without heart failure; I08.1 Rheumatic disorders of both mitral and tricuspid valves; E66.09 Other obesity due to excess calories; Z68.34 Body mass index [BMI] 34.0-34.9, adult; L98.8 Other specified disorders of the skin and subcutaneous tissue; K82.8 Other specified diseases of gallbladder; E83.42 Hypomagnesemia; B96.1 Klebsiella pneumoniae [K. pneumoniae] as the cause of diseases classified elsewhere; B96.20 Unspecified Escherichia coli [E. coli] as the cause of diseases classified elsewhere; M19.90 Unspecified osteoarthritis, unspecified site; T38.0X5A Adverse effect of glucocorticoids and synthetic analogues, initial encounter; G47.33 Obstructive sleep apnea (adult) (pediatric); R79.89 Other specified abnormal findings of blood chemistry; D72.828 Other elevated white blood cell count; W18.30XA Fall on same level, unspecified, initial encounter; Y92.009 Unspecified place in unspecified non-institutional (private) residence as the place of occurrence of the external cause; Z79.01 Long term (current) use of anticoagulants; Z79.02 Long term (current) use of antithrombotics/antiplatelets; Z79.899 Other long term (current) drug therapy
CPT/HCPCS: 36415; 70450; 71045; 71046; 72125; 76705; 80053; 81001; 83605; 83690; 83735; 83880; 84443; 84484; 85025; 85610; 85730; 87070; 87075; 87077; 87186; 87205; 87636; 88304; 93005; 93306; 96361; 96365; 96366; 96368; 96375; 99291